=== PATIENT | female | born 1945 | race Caucasian/White ===

== ENCOUNTER 2020-11-02 07:32 | Outpatient (REF) | payer MEDICARE, SELFPAY | END 2020-11-02 07:33 | disposition home or self-care (01) | LOC: HO.HMGCLDS 07:32 | PROVIDERS: PCP Internal Medicine; Visit Provider Internal Medicine | DX: Z20.828 Contact with and (suspected) exposure to other viral communicable diseases (principal) | CPT/HCPCS: C9803; U0003 ==

== ENCOUNTER 2021-07-18 07:39 | Day surgery (SDC) | payer MEDICARE, SELFPAY ==
[2021-07-18 07:53] VITALS: BP 181/63; PULSE 90; RESP 16; TEMP 36.3; O2SAT 98; BMI 23.3
--- NOTE | 2021-07-18 08:11 | P.CONAN_ITS ---
HPI - Anesthesia Eval Consult details Narrative: 76 yo female patient for colonoscopy [facility] Past Medical History Medical History (Updated 07/18/21 @ 07:52 by Celina Oreilly) Cancer Elevated cholesterol Environmental allergies HTN (hypertension) Melanoma Family History Family history of problems with anesthesia: No Surgical History Surgical History (Updated 07/11/21 @ 10:45 by Halima Mccarthy RN) Hx of colonoscopy Hx of hysterectomy History of Problems with Anesthesia: No Social History Social History Patient Tobacco Use Status: Never used Tobacco Use of substances other than those prescribed or required for medical reasons: No Are you DNR?: No Advance Directives: No Advance Directives Information Provided: Yes Meds Allergies Allergy/AdvReac Type Severity Reaction Status Date / Time No Known Allergies Allergy Verified 07/18/21 07:48 Home Medications Medication Instructions Recorded Confirmed Last Taken Type Probiotic 07/11/21 Unknown History atorvastatin 10 mg tablet 10 mg PO DAILY 07/11/21 07/11/21 Unknown History calcium 07/11/21 Unknown History lisinopril 5 mg tablet 5 mg PO DAILY 07/11/21 07/11/21 Unknown History multivitamin 1 tab PO DAILY 07/11/21 07/11/21 Unknown History Exam Exam Date and Time: July 18, 2021 0811 Height,Weight and Vital Signs: Height 5 ft 5 in Weight 63.503 kg Last Vital Signs Temp 97.3 F 07/18/21 07:53 Pulse 90 07/18/21 07:53 Resp 16 07/18/21 07:53 BP 181/63 H 07/18/21 07:53 Pulse Ox 98 07/18/21 07:53 Airway Mallampati Class: II TM Dist: >3cm Neck ROM: Full Loose/Missing/Broken Teeth: No Heart: RRR Lungs: CTAB Assessment and Plan Assessment Anesthesia Assessment: Anesthesia Plan Discussed and Chart Reviewed Final Anesthetic Review Family History of Problems with Anesthesia: No History of Problems with Anesthesia: No NPO: Yes ASA Class: II Final Preanesthetic Review: No Changes in Pt Med Stat, Meds/Allgs Chart Reviewed, Consent Obtained/Reviewed and Anes Risks/Benef Reviewed Patient Risk: Low Procedure Risk: Low Assessment/Block/Sedation in SS: Assess/Block/Sedation-SS Anesthetic Plan Anesthetic Plan: MAC: Disposition: Standard PACU
[2021-07-18] MEDS: Lactated Ringers 1,000 ML 100 ML IVCONT (08:23)
--- NOTE | 2021-07-18 08:39 | MHC.SHP ---
Pre-Procedural Eval Section A Date of Service: 07/18/21 Section B Chief Complaint: screening Details of Present Illness: see h&p no changes Relevant Family History (Specify if Yes): Yes Relevant Social History: None Present Medications: see Short Stay Collaborative assessment Medical History: No relevant PMH History of Previous Operations: No relevant previous surgery Allergies: Allergies Allergy/AdvReac Type Severity Reaction Status Date / Time No Known Allergies Allergy Verified 07/18/21 07:48 Review of Systems Sugical H&P ROS: Negative: Constitution, Cardiovascular, Respiratory, Neurological, Psychiatric, Hem-Onc, Allergic/Immunologic, Gastrointestinal, Genitourinary, Musculoskeletal, Integumentary, Endocrine and Eyes/Ears/Nose/Throat Exam Surgical H&P Exam: Normal: HEENT, Normal: Heart, Normal: Lungs, Normal: Extremities, Normal: Abdomen, Normal: Skin and Normal: Neurological Plan Diagnosis/Plan: Unchanged I have reviewed the history and physical and performed a pertinent physical examination on my patient. No changes have occurred unless specified.
[2021-07-18 09:26] VITALS: BP 97/41; PULSE 68; RESP 16; TEMP 36.2; O2SAT 99
--- NOTE | 2021-07-18 09:28 | P.BOP_ITS ---
Brief Operative Note Date of Service: 07/18/21 Pre-op diagnosis: screening Post-op diagnosis: same (colon polyp) Surgeon: Eren Palma Anesthesia: MAC Was an Machine Set Up Operator used for this Procedure?: No Estimated blood loss (mL): 2 Pathology: other (polyp x 2) Condition: stable Disposition: PACU
--- NOTE | 2021-07-18 09:32 | PC.NURSE ---
dr moura at bedside speaking to patient aware of plan ofcare passing flatus
--- NOTE | 2021-07-18 09:33 | OP_ITS ---
SURGEON: Eren Palma MD INDICATIONS: Colon cancer screening. PREOPERATIVE DIAGNOSIS: POSTOPERATIVE DIAGNOSIS: PROCEDURE PERFORMED: Colonoscopy to the terminal ileum with biopsy and snare polypectomy. ESTIMATED BLOOD LOSS: COMPLICATIONS: ANESTHESIA: ASSISTANTS: SPECIMENS: MEDICATIONS: Monitored anesthesia care. DESCRIPTION OF PROCEDURE: History and physical performed. The risks and benefits of the procedure were explained to the patient. Informed consent was obtained. The patient was placed in the left lateral decubitus position. A digital rectal exam was performed and was found to be normal. The Olympus pediatric video colonoscope was introduced into the rectum and advanced to the cecum without difficulty. The cecum was identified by transillumination, palpation, and identification of ileocecal valve. Examination was performed and the scope was removed. She tolerated the procedure well and was taken to recovery area in stable condition. FINDINGS: The terminal ileum was normal. The visualized colonic mucosa was normal. The quality of prep was good. At 40 cm from the anal verge, was a less than 5 mm sessile polyp, which was removed with biopsy forceps. At 15 cm, was a 6 to 7 mm polyp, which was removed with a snare. The polyp recovery is pending at the time of this dictation. Retroflexed examination was normal. IMPRESSION: Colon polyps. RECOMMENDATION: Follow up the biopsy results. MD ABHISHEK Quan/CRISTI / [phone]
[2021-07-18 09:41] VITALS: BP 144/63; PULSE 69; RESP 18; TEMP 36.2; O2SAT 99
== END 2021-07-18 10:20 | disposition home or self-care (01) ==
PROVIDERS: PCP Internal Medicine; Visit Provider Internal Medicine Gastroenterology
PROC: 0DJD8ZZ Inspection of Lower Intestinal Tract, Via Natural or Artificial Opening Endoscopic (ICD-10-PCS; CPT 45378; principal; 2021-07-18 08:50)
DX: Z12.11 Encounter for screening for malignant neoplasm of colon (principal); D12.5 Benign neoplasm of sigmoid colon; D12.8 Benign neoplasm of rectum; K58.2 Mixed irritable bowel syndrome; I10 Essential (primary) hypertension; E78.00 Pure hypercholesterolemia, unspecified; J30.2 Other seasonal allergic rhinitis; Z85.820 Personal history of malignant melanoma of skin
CPT/HCPCS: 45385; 45380; 88305

== ENCOUNTER 2022-09-04 08:06 | Outpatient (REF) | payer MEDICARE, SELFPAY ==
[2022-09-04 11:20] LABS: MANUAL DIFF FLAG NO
[2022-09-04 12:08] LABS: Basophils Absolute Auto 0.1 X10*3/uL (0.0-0.2); Eosinophils Absolute Auto 0.3 X10*3/uL (0.0-0.4); Eosinophils Percent Auto 6.8 % (0-4); Hematocrit 43.4 % (37.0-47.0); Imm Gran Abs Auto 0.01 X10*3/uL (0.00-0.03); Imm Gran Pct Auto 0.2 % (0.0-0.4); Lymphocytes Absolute Auto 1.1 X10*3/uL (1.2-4.9); Lymphocytes Percent Auto 22.5 % (20-40); Mean Corpuscular HGB Conc 32.3 g/dl (31.0-35.0); Mean Corpuscular Hemoglobin 28.6 pg (27.0-33.0); Mean Corpuscular Volume 88.8 fL (80.0-98.0); Mean Platelet Volume 10.5 fL (9.4-12.3); Monocytes Absolute Auto 0.6 X10*3/uL (0.1-1.2); Monocytes Percent Auto 13.1 % (2-11); Neutrophils Absolute Auto 2.8 x10*3/uL (2.0-8.3); Neutrophils Percent Auto 56.4 % (45-73); Platelet Count 275 X10*3/uL (160-400); Red Blood Count 4.89 X10*6/uL (4.20-5.50); Red Cell Distribution Width 12.1 % (11.0-16.0); White Blood Count 4.9 X10*3/uL (4.8-10.8)
[2022-09-04 12:15] LABS: Thyroid Stimulating Hormone 1.97 uIU/mL (0.32-4.0); Vitamin D 25-OH Total 35.4 ng/mL (>30)
[2022-09-04 12:38] LABS: Alanine Aminotransferase 21 U/L (0-31); Albumin Level 4.3 g/dL (3.5-5.0); Alkaline Phosphatase 94 U/L (39-117); Anion Gap 14 (12-20); Aspartate Amino Transferase 22 U/L (5-31); Bilirubin Total 0.6 mg/dL (0.0-1.0); Blood Urea Nitrogen 14 mg/dL (9-16); Calcium 9.1 mg/dL (8.4-10.2); Carbon Dioxide 26 mmol/L (22-29); Chloride 107 mmol/L (96-108); Cholesterol 215 mg/dL; Estimated Glomerular Filt Rate > 60; Glucose Fasting 90 mg/dL (60-99); HDL Cholesterol 73 mg/dL; LDL Cholesterol Calculated 130 mg/dl; Potassium 4.1 mmol/L (3.3-5.1); Sodium 143 mmol/L (135-145); Total Protein 6.6 g/dL (6.5-8.0); Triglycerides 64 mg/dL
== END 2022-09-04 08:07 | disposition home or self-care (01) ==
LOC: HO.HMGCLDS 08:06
PROVIDERS: PCP Internal Medicine; Visit Provider Internal Medicine
DX: Z00.00 Encounter for general adult medical examination without abnormal findings (principal); I10 Essential (primary) hypertension; E78.00 Pure hypercholesterolemia, unspecified; K21.9 Gastro-esophageal reflux disease without esophagitis; D03.30 Melanoma in situ of unspecified part of face
CPT/HCPCS: 36415; 80053; 80061; 82306; 84443; 85025

== ENCOUNTER 2023-08-28 11:34 | Outpatient (REF) | payer MEDICARE, SELFPAY ==
[2023-08-28 13:09] LABS: MANUAL DIFF FLAG NO
[2023-08-28 13:27] LABS: Basophils Absolute Auto 0.1 X10*3/uL (0.0-0.2); Basophils Percent Auto 0.5 % (0-2); Eosinophils Absolute Auto 0.2 X10*3/uL (0.0-0.4); Eosinophils Percent Auto 1.7 % (0-4); Hematocrit 41.9 % (37.0-47.0); Hemoglobin 13.9 g/dl (12.0-16.0); Imm Gran Abs Auto 0.06 X10*3/uL (0.00-0.03); Imm Gran Pct Auto 0.6 % (0.0-0.4); Lymphocytes Absolute Auto 1.2 X10*3/uL (1.2-4.9); Mean Corpuscular HGB Conc 33.2 g/dl (31.0-35.0); Mean Corpuscular Hemoglobin 29.7 pg (27.0-33.0); Mean Corpuscular Volume 89.5 fL (80.0-98.0); Mean Platelet Volume 10.4 fL (9.4-12.3); Monocytes Absolute Auto 0.9 X10*3/uL (0.1-1.2); Monocytes Percent Auto 9.7 % (2-11); Neutrophils Percent Auto 74.5 % (45-73); Platelet Count 283 X10*3/uL (160-400); Red Blood Count 4.68 X10*6/uL (4.20-5.50); Red Cell Distribution Width 12.3 % (11.0-16.0); White Blood Count 9.5 X10*3/uL (4.8-10.8)
[2023-08-28 13:58] LABS: Alanine Aminotransferase 17 U/L (0-31); Albumin Level 4.1 g/dL (3.5-5.0); Alkaline Phosphatase 107 U/L (39-117); Anion Gap 12 (12-20); Aspartate Amino Transferase 17 U/L (5-31); Bilirubin Direct 0.2 mg/dL (0.0-0.5); Bilirubin Total 0.4 mg/dL (0.0-1.0); Blood Urea Nitrogen 21 mg/dL (9-16); C Reactive Protein < 0.10 mg/dL (< or = 0.50); Calcium 9.5 mg/dL (8.4-10.2); Carbon Dioxide 24 mmol/L (22-29); Chloride 107 mmol/L (96-108); Estimated Glomerular Filt Rate > 60; Glucose Random 104 mg/dL (60-115); Potassium 3.9 mmol/L (3.3-5.1); Sodium 139 mmol/L (135-145); Total Protein 6.8 g/dL (6.5-8.0)
[2023-08-28 14:18] LABS: Thyroid Stimulating Hormone 1.64 uIU/mL (0.32-4.0)
[2023-08-28 14:19] LABS: Erythrocyte Sedimentation Rate 16 MM/HR (0-20)
== END 2023-08-28 11:35 | disposition home or self-care (01) ==
LOC: HO.HMGCLDS 11:34
PROVIDERS: PCP Internal Medicine; Visit Provider Internal Medicine
DX: R53.83 Other fatigue (principal)
CPT/HCPCS: 36415; 80048; 80076; 84443; 85025; 85652; 86140

== ENCOUNTER 2023-09-04 10:37 | Outpatient (AMB) | payer MEDICARE, SELFPAY ==
--- NOTE | 2023-09-04 10:43 | MHC.OFFVIS ---
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 Patient describes her pain as sharp and severe nature. Her pain has gotten worse over the last few years in spite of continued operative treatments. She was seen at [facility] and was told that she would likely need left total knee replacement surgery at some point in the near future. She has had cortisone injections in the past. The most recent injection gave her minimal relief. She has tried Tylenol and anti-inflammatory medicines which gave her only mild relief. She has done physical therapy exercises which aggravated her pain. Allergies Sulfa (Sulfonamide Antibiotics) Allergy (Verified 09/04/23 11:01) Unknown Medication List - Last Reconciled 09/04/23 by Sonu Kumar MD atorvastatin 10 mg PO DAILY [calcium ] lisinopril 5 mg PO DAILY multivitamin 1 tab PO DAILY [Probiotic ] PFSH Medical History (Updated 09/04/23 @ 11:22 by Sonu Kumar MD) Cancer HTN (hypertension) Melanoma Elevated cholesterol Environmental allergies Surgical History (Updated 07/11/21 @ 10:45 by Halima Mccarthy RN) Hx of hysterectomy Hx of colonoscopy Social History Patient Tobacco Use Status: Never used Tobacco Physical Exam Const Other: Well-nourished well-developed very friendly female awake alert and oriented x3 in no acute distress Extrem Other: Bilateral lower extremity examination shows good capillary refill, no skin lesions noted, normal sensation light touch Left knee examination shows minimal effusion, palpable crepitus with range of motion, pain with range of motion, range of motion from full extension to 115 degrees of flexion, no instability Results Reviewed Results Reviewed: X-rays of the patient's left knee taken today show severe joint space narrowing with grade 4 arthritis in the medial compartment, subchondral sclerosis, osteophyte formation, no acute bony abnormalities Assessment & Plan Assessment & Plan (1) Arthritis of left knee: Code(s): M17.12 - Unilateral primary osteoarthritis, left knee Plan Ms. Clark presents with progressively worsening left knee pain due to degenerative joint disease. I had a lengthy discussion with the patient regarding the treatment options. She wishes to hold off on left total knee replacement surgery for now. I agree with this plan. I will see whether not the patient's insurance company will cover a viscosupplementation injection. I will see her back once the injection is available. If she fails continued non operative treatments we will further discuss the risks and benefits of surgical intervention. Feel free to call me at any time should questions regarding her orthopedic management arise. Thank you very much for asking me to see this very friendly patient. I spent 22 minutes in reviewing the patient's records and imaging studies, seeing the patient and documenting in the medical record. Orders: Orders XR knee LT 3V Today M25.562 - Pain in left knee Coding Level of Care Code New Pt Level 2 (82997) Diagnoses Arthritis of left knee M17.12
== END 2023-09-04 11:16 | disposition home or self-care (01) ==
PROVIDERS: PCP Internal Medicine; Visit Provider Orthopaedic Surgery
DX: M17.12 Unilateral primary osteoarthritis, left knee (principal)
CPT/HCPCS: 99202

== ENCOUNTER → 2023-09-04 10:37 | Outpatient (BNVA) | payer MEDICARE, SELFPAY | PROVIDERS: PCP Internal Medicine; Visit Provider Orthopaedic Surgery | DX: M17.12 Unilateral primary osteoarthritis, left knee (principal); M25.562 Pain in left knee | CPT/HCPCS: 99202 ==

== ENCOUNTER 2023-09-06 16:45 | Outpatient (REF) | payer MEDICARE, SELFPAY ==
--- NOTE | ~2023-09-06 | XR_ITS ---
EXAMINATION: XR KNEE, LEFT CLINICAL INFORMATION: Pain COMPARISON: None available. TECHNIQUE: Three views of the left knee. FINDINGS: No acute visible fracture or dislocation. Moderate to severe multicompartment degenerative changes. Moderate to severe narrowing of the medial femorotibial compartments. Severe narrowing of the lateral patellofemoral compartment and moderate to severe narrowing of the medial patellofemoral compartment. Periarticular osteophytes along the superior inferior margins of the patella. A fabella is noted in the posterior compartment. Joint spaces and alignment are otherwise maintained. Small knee joint effusion. Soft tissues are unremarkable. XR/XR knee LT 3V IMPRESSION: 1. No acute visible fracture or dislocation. 2. Moderate to severe multicompartment degenerative changes. 3. Small knee joint effusion.
== END 2023-09-06 16:46 | disposition home or self-care (01) ==
LOC: HO.HOSX 16:45
PROVIDERS: Visit Provider Orthopaedic Surgery
DX: M25.562 Pain in left knee (principal)
CPT/HCPCS: 73562

== ENCOUNTER 2023-09-10 08:24 | Outpatient (AMB) | payer MEDICARE, SELFPAY ==
--- NOTE | 2023-09-10 08:36 | MHC.OFFVIS ---
Intake Intake Visit Reasons: OV - left knee Euflexxa Gel Inj #1 Intake Note: Chelo a 78 year old female presents with complaints of progressively worsening left knee pain. The patient describes her pain as sharp in nature. She has taken Tylenol and ibuprofen which gave her mild relief. She has had cortisone injections in the past which gave her minimal relief. She has done physical therapy exercises which aggravated her pain. She would like to hold off on total knee replacement surgery for as long as possible. Allergies Sulfa (Sulfonamide Antibiotics) Allergy (Verified 09/10/23 08:37) Unknown Medication List - Last Reconciled 09/10/23 by Sonu Kumar MD atorvastatin 10 mg PO DAILY [calcium ] lisinopril 5 mg PO DAILY multivitamin 1 tab PO DAILY [Probiotic ] PFSH Medical History (Updated 09/04/23 @ 11:22 by Sonu Kumar MD) Cancer HTN (hypertension) Melanoma Elevated cholesterol Environmental allergies Surgical History Hx of hysterectomy Hx of colonoscopy Social History Patient Tobacco Use Status: Never used Tobacco Physical Exam Const Other: Well-nourished well-developed very friendly female awake alert and oriented x3 in no acute distress Extrem Other: Bilateral lower extremity examination shows good capillary refill, no skin lesions noted, normal sensation light touch Left knee examination shows a minimal effusion, palpable crepitus with range of motion, pain with range of motion, range of motion from -3 degrees to 115 degrees, no instability Office Procedures Joint Injection/Drain Joint Injection/Drain Primary Site: left knee Prep: site was prepped using aseptic technique Injected: 20 mg of (Euflexxa) and 1% plain lidocaine Procedure: The patient tolerated the procedure well Coding 49580 - Large joint Procedure code (CPT) selection complete Results Reviewed Results Reviewed: 09/10/23 08:33 Hyaluronate Sodium [Euflexxa] 20 mg INTRAARTIC .STK-MED ONE Lidocaine HCl 2 % MPF [Xylocaine 2 % MPF] 5 ml .ROUTE .STK-MED ONE X-rays of the patient's left knee show joint space narrowing, subchondral sclerosis, no acute bony abnormalities Assessment & Plan Assessment & Plan (1) Arthritis of left knee: Code(s): M17.12 - Unilateral primary osteoarthritis, left knee Plan: Ms. Clark presents with left knee pain due to degenerative joint disease. I had a lengthy discussion with the patient regarding the treatment options. She wishes to hold off on total knee replacement surgery for as long as possible. I agree with this plan. The patient has not gotten good relief from cortisone injections in the past. Thus, the risks and benefits of a series of 3 viscosupplementation injections were discussed at length with the patient. The patient wished to proceed with the 1st injection. She tolerated the injection well. She will continue with her home exercise program. She will follow up next week as scheduled. Feel free to call me at any time should questions regarding her orthopedic management arise. I spent 22 minutes in reviewing the patient's records and imaging studies, seeing the patient and documenting in the medical record. Orders: Orders AMB Joint Injection/Aspiration Today M17.12 - Unilateral primary osteoarthritis, left knee Coding Level of Care Code Est Pt Level 2 (55529) Diagnoses Arthritis of left knee M17.12 CPT Codes Coding - 45784 Large joint: 58774 - Large joint ([id number])
== END 2023-09-10 09:06 | disposition home or self-care (01) ==
PROVIDERS: PCP Internal Medicine; Visit Provider Orthopaedic Surgery
DX: M17.12 Unilateral primary osteoarthritis, left knee (principal)
CPT/HCPCS: 20610; 99212

== ENCOUNTER → 2023-09-10 08:24 | Outpatient (BNVA) | payer MEDICARE, SELFPAY | PROVIDERS: PCP Internal Medicine; Visit Provider Orthopaedic Surgery | DX: M17.12 Unilateral primary osteoarthritis, left knee (principal) | CPT/HCPCS: 20610; 99212; J7323 ==

== ENCOUNTER 2023-09-17 08:21 | Outpatient (AMB) | payer MEDICARE, SELFPAY ==
--- NOTE | 2023-09-17 08:26 | A.OFFVIS_ITS ---
Intake Intake Visit Reasons: OV - left knee Euflexxa Gel Inj #2 Intake Note: Ms. Clark presents for follow-up of her left knee pain. She states that she got mild relief from the 1st Euflexxa injection that she was given at her last visit. She denies any fevers or chills. She continues with her activity modifications. Allergies Sulfa (Sulfonamide Antibiotics) Allergy (Verified 09/17/23 08:30) Unknown [facility] Medical History (Updated 09/04/23 @ 11:22 by Sonu Kumar MD) Cancer HTN (hypertension) Melanoma Elevated cholesterol Environmental allergies Surgical History Hx of hysterectomy Hx of colonoscopy Social History Patient Tobacco Use Status: Never used Tobacco Physical Exam Extrem Other: Left knee examination shows a minimal effusion, palpable crepitus with range of motion, pain with range of motion, no instability Office Procedures Joint Injection/Drain Joint Injection/Drain Primary Site: left knee Prep: site was prepped using aseptic technique Injected: 20 mg of (Euflexxa) and 1% plain lidocaine Procedure: The patient tolerated the procedure well Coding 25103 - Large joint Procedure code (CPT) selection complete Results Reviewed Results Reviewed: X-rays of the patient's left knee show joint space narrowing, subchondral sclerosis, no acute bony abnormalities Assessment & Plan Assessment & Plan (1) Arthritis of left knee: Code(s): M17.12 - Unilateral primary osteoarthritis, left knee Plan: Ms. Clark presents for follow-up of her left knee pain. The risks and benefits of a 2nd Euflexxa injection were discussed at length patient. Patient wished to proceed. She tolerated the injection well. She will continue with her activity modifications. She will follow-up for 3rd injection as scheduled. Feel free to call me at any time should questions regarding her orthopedic arise. I spent 22 minutes in reviewing the patient's records and imaging studies, seeing the patient and documenting in the medical record. Orders: Orders AMB Joint Injection/Aspiration Today M17.12 - Unilateral primary osteoarthritis, left knee Coding Level of Care Code Procedure Only Diagnoses Arthritis of left knee M17.12 CPT Codes Coding - 39820 Large joint: 61586 - Large joint ([id number])
== END 2023-09-17 08:56 | disposition home or self-care (01) ==
PROVIDERS: PCP Internal Medicine; Visit Provider Orthopaedic Surgery
DX: M17.12 Unilateral primary osteoarthritis, left knee (principal)
CPT/HCPCS: 20610

== ENCOUNTER → 2023-09-17 08:21 | Outpatient (BNVA) | payer MEDICARE, SELFPAY | PROVIDERS: PCP Internal Medicine; Visit Provider Orthopaedic Surgery | DX: M17.12 Unilateral primary osteoarthritis, left knee (principal) | CPT/HCPCS: 20610; J7323 ==

== ENCOUNTER 2023-09-24 08:25 | Outpatient (AMB) | payer MEDICARE, SELFPAY ==
--- NOTE | 2023-09-24 08:34 | MHC.OFFVIS ---
Intake Intake Visit Reasons: OV - left knee Euflexxa Gel Inj #3 Intake Note: Chelo shipley 78 year old female presents today for a left knee Euflexxa injection #3. She reports mild discomfort in her left knee. She denies any fevers or chills. She also reports intermittent discomfort in her right knee. At this point her right knee discomfort is tolerable to Allergies Sulfa (Sulfonamide Antibiotics) Allergy (Verified 09/24/23 08:43) Unknown [facility] Medical History (Updated 09/04/23 @ 11:22 by Sonu Kumar MD) Cancer HTN (hypertension) Melanoma Elevated cholesterol Environmental allergies Surgical History Hx of hysterectomy Hx of colonoscopy Social History Patient Tobacco Use Status: Never used Tobacco Physical Exam Extrem Other: Left knee examination shows a minimal effusion, palpable crepitus with range of motion, mild pain with range of motion, no instability Office Procedures Joint Injection/Drain Joint Injection/Drain Primary Site: left knee Prep: site was prepped using aseptic technique Injected: 20 mg of (Eudlexxa) and 1% plain lidocaine Procedure: The patient tolerated the procedure well Coding - Large joint Procedure code (CPT) selection complete Assessment & Plan Assessment & Plan (1) Arthritis of left knee: Code(s): M17.12 - Unilateral primary osteoarthritis, left knee Plan: Ms. Clark the the presents with left knee pain due to degenerative joint disease. I had a lengthy discussion with the patient regarding the treatment options. The risks and benefits of a 3rd Euflexxa injection were discussed at length with the patient. The patient wished to proceed. She tolerated the injection well. She will continue with her home exercise program. She will follow up with me on an as-needed basis should her symptoms not plateau at an unacceptable level over the next few months. If she fails continued non operative treatments we will further discuss the risks and benefits of left total knee replacement surgery. Feel free to call me at any time should questions regarding her orthopedic management arise. Orders: Orders AMB Joint Injection/Aspiration Today M17.12 - Unilateral primary osteoarthritis, left knee Coding Level of Care Code Procedure Only Diagnoses Arthritis of left knee M17.12 CPT Codes Coding - 24102 Large joint: 41646 - Large joint ([id number])
== END 2023-09-24 08:56 | disposition home or self-care (01) ==
PROVIDERS: PCP Internal Medicine; Visit Provider Orthopaedic Surgery
DX: M17.12 Unilateral primary osteoarthritis, left knee (principal)
CPT/HCPCS: 20610

== ENCOUNTER → 2023-09-24 08:25 | Outpatient (BNVA) | payer MEDICARE, SELFPAY | PROVIDERS: PCP Internal Medicine; Visit Provider Orthopaedic Surgery | DX: M17.12 Unilateral primary osteoarthritis, left knee (principal) | CPT/HCPCS: 20610; J7323 ==

== ENCOUNTER 2023-10-24 14:32 | Outpatient (AMB) | payer MEDICARE, SELFPAY ==
--- NOTE | 2023-10-24 14:33 | A.OFFVIS_ITS ---
Intake Intake Visit Reasons: OV- Lt knee pain, following inj Intake Note: Chelo is a 78 year old female who presents today for evaluation for her left knee pain. Patient describes her pain as sharp and severe nature. Her pain has gotten worse over the last few years in spite of continued operative treatments. She was seen at [facility] and was told that she would likely need left total knee replacement surgery at some point in the near future. She has had cortisone injections in the past. The most recent injection gave her minimal relief. She also had a series of viscosupplementation injections 2 months ago which gave her minimal relief. She has tried Tylenol and anti-inflammatory medicines which gave her only mild relief. She has done physical therapy exercises which aggravated her pain. The patient has difficulty walking even short distances because of her pain. At this point her left knee pain is interfering with her activities of daily living and her ability to sleep well through the night. Allergies Sulfa (Sulfonamide Antibiotics) Allergy (Verified 10/24/23 14:39) Unknown Medication List - Last Reconciled 10/24/23 by Sonu Kumar MD atorvastatin 10 mg PO DAILY [calcium ] lisinopril 5 mg PO DAILY methylprednisolone (Medrol (Murphy)) PO PER PKG DIR multivitamin 1 tab PO DAILY [Probiotic ] PFSH Medical History (Updated 09/04/23 @ 11:22 by Sonu Kumar MD) Cancer HTN (hypertension) Melanoma Elevated cholesterol Environmental allergies Surgical History Hx of hysterectomy Hx of colonoscopy Social History Patient Tobacco Use Status: Never used Tobacco Physical Exam Const Other: Well-nourished well-developed very friendly female awake alert and oriented x3 in no acute distress Extrem Other: Bilateral lower extremity examination shows good capillary refill, no skin lesions noted, normal sensation light touch Left knee examination shows a minimal effusion, palpable crepitus with range of motion, pain with range of motion, range of motion from -3 degrees to 115 degrees, no instability Results Reviewed Results Reviewed: X-rays of the patient's left knee show severe joint space narrowing with grade 4 [id number] arthritis, subchondral sclerosis, no acute bony abnormalities Assessment & Plan Assessment & Plan (1) Arthritis of left knee: Code(s): M17.12 - Unilateral primary osteoarthritis, left knee Plan Ms. Clark presents with progressively worsening left knee pain due to end-stage degenerative joint disease. I had a lengthy discussion with the patient regarding the treatment options. At this point she has failed continued non operative treatments. The risks and benefits of left total knee replacement surgery were discussed at length with the patient. The patient is interested in proceeding with surgery next February. I will have my office contact the patient to schedule a surgery date. I will see her back 1 week prior to her surgery to answer any final questions that she might have. I did give her a prescription for a Medrol Dosepak to help in the meantime. We will hold off on any other cortisone injection because she is not sure when her most recent cortisone injection was. Feel free to call me at any time should questions regarding her orthopedic management arise. I spent 20 minutes in reviewing the patient's records and imaging studies, seeing the patient and documenting in the medical record. Medications: New methylprednisolone (Medrol (Murphy)) PO PER PKG DIR 21 ea 0RF Coding Level of Care Code Est Pt Level 2 (13267) Diagnoses Arthritis of left knee M17.12
== END 2023-10-24 15:10 | disposition home or self-care (01) ==
PROVIDERS: PCP Internal Medicine; Visit Provider Orthopaedic Surgery
DX: M17.12 Unilateral primary osteoarthritis, left knee (principal)
CPT/HCPCS: 99212

== ENCOUNTER → 2023-10-24 14:32 | Outpatient (BNVA) | payer MEDICARE, SELFPAY | PROVIDERS: PCP Internal Medicine; Visit Provider Orthopaedic Surgery | DX: M17.12 Unilateral primary osteoarthritis, left knee (principal) | CPT/HCPCS: 99212; J1020 ==

== ENCOUNTER 2023-12-03 07:39 | Outpatient (AMB) | payer MEDICARE, SELFPAY ==
--- NOTE | 2023-12-03 07:43 | MHC.OFFVIS ---
Intake Vital Signs 12/03/23 07:47 Height 5 ft 5 in Weight 142 lb BMI 23.6 Intake Visit Reasons: OV-Bilateral Knee Pain - Wants Injection Intake Note: Chelo is a 78 year old female who presents today with complaints of bilateral knee pain. She finished her left knee Euflexxa series on 09/24/23. She would like to have both of her knees injected today. She has been using topical Voltaren gel which gives her mild relief. She denies any fevers or chills. She is scheduled to undergo left total knee replacement surgery later this year. Allergies Sulfa (Sulfonamide Antibiotics) Allergy (Verified 12/03/23 07:48) Unknown Medication List - Last Reconciled 12/03/23 by Sonu Kumar MD atorvastatin 10 mg PO DAILY [calcium ] diclofenac sodium ER 100 mg PO DAILY PRN lisinopril 5 mg PO DAILY multivitamin 1 tab PO DAILY [Probiotic ] PFSH Medical History Cancer HTN (hypertension) Melanoma Elevated cholesterol Environmental allergies Surgical History Hx of hysterectomy Hx of colonoscopy Social History Patient Tobacco Use Status: Never used Tobacco Physical Exam Vital Signs: BMI result Body Mass Index 23.6 Const Other: Well-nourished well-developed very friendly female awake alert and oriented x3 in no acute distress Extrem Other: Bilateral lower extremity examination shows good capillary refill, no skin lesions noted, normal sensation light touch Bilateral knee examination shows minimal effusions, palpable crepitus with range of motion, pain with range of motion, range of motion from -3 degrees to 115 degrees, no instability Office Procedures Joint Injection/Drain Joint Injection/Drain Primary Site: left knee Prep: site was prepped using aseptic technique Injected: 40 mg of, DepoMedrol and 1% plain lidocaine Procedure: The patient tolerated the procedure well Coding 67385 - Large joint Procedure code (CPT) selection complete Joint Injection/Drain Joint Injection/Drain Primary Site: right knee Prep: site was prepped using aseptic technique Injected: 40 mg of, DepoMedrol and 1% plain lidocaine Coding 16872 - Large joint Procedure code (CPT) selection complete Results Reviewed Results Reviewed: X-rays of the patient's bilateral knee show joint space narrowing, subchondral sclerosis, no acute bony abnormalities Assessment & Plan Assessment & Plan (1) Arthritis of left knee: Code(s): M17.12 - Unilateral primary osteoarthritis, left knee (2) Arthritis of right knee: Code(s): M17.11 - Unilateral primary osteoarthritis, right knee Plan Ms. Clark presents with bilateral knee pains due to degenerative joint disease. The risks and benefits of bilateral knee cortisone injections were discussed at length with the patient. The patient wished to proceed. She tolerated the injections well. I also gave her a prescription for diclofenac. She will continue with her home exercise program. She will follow-up as scheduled. Feel free to call me at any time should questions regarding her orthopedic management arise. I spent 22 minutes in reviewing the patient's records and imaging studies, seeing the patient and documenting in the medical record. Orders: Orders AMB Joint Injection/Aspiration Today M17.12 - Unilateral primary osteoarthritis, left knee AMB Joint Injection/Aspiration Today M17.11 - Unilateral primary osteoarthritis, right knee Medications: New diclofenac sodium ER 100 mg PO DAILY PRN 30 tabs 2RF pain Coding Level of Care Code Est Pt Level 2 (77896) Diagnoses Arthritis of left knee M17.12 Arthritis of right knee M17.11 CPT Codes Coding - 67110 Large joint: 58671 - Large joint ([id number]) Coding - 70483 Large joint: 08967 - Large joint ([id number])
[2023-12-03 07:47] VITALS: BMI 23.6
== END 2023-12-03 08:09 | disposition home or self-care (01) ==
PROVIDERS: PCP Internal Medicine; Visit Provider Orthopaedic Surgery
DX: M17.0 Bilateral primary osteoarthritis of knee (principal)
CPT/HCPCS: 20610; 99213

== ENCOUNTER → 2023-12-03 07:39 | Outpatient (BNVA) | payer MEDICARE, SELFPAY | PROVIDERS: PCP Internal Medicine; Visit Provider Orthopaedic Surgery | DX: M17.0 Bilateral primary osteoarthritis of knee (principal) | CPT/HCPCS: 20610; 99212; J1020 ==

== ENCOUNTER 2023-12-25 08:21 | Outpatient (AMB) | payer MEDICARE, SELFPAY ==
--- NOTE | 2023-12-25 08:23 | MHC.OFFVIS ---
Intake Vital Signs 12/25/23 08:25 Height 5 ft 5 in Weight 142 lb BMI 23.6 Intake Visit Reasons: OV-Left knee -follow up Intake Note: Chelo is a 78 year old female who presents for a follow up of Left knee OA, last injection 12/03/22. 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 Her pain has gotten worse over the last few years in spite of continued non operative treatments. She has had both viscosupplementation and cortisone injections which gave her minimal relief. She has taken Tylenol and diclofenac which gave her no relief. The patient has difficulty walking even short distances because of her pain. At this point her left knee pain is interfering with her activities of daily living and her ability to sleep well through the night. Allergies Sulfa (Sulfonamide Antibiotics) Allergy (Verified 12/25/23 08:25) Unknown Medication List - Last Reconciled 12/25/23 by Sonu Kumar MD atorvastatin 10 mg PO DAILY [calcium ] diclofenac sodium ER 100 mg PO DAILY PRN hydrocodone-acetaminophen 5-325 mg 1 tab PO Q8H PRN lisinopril 5 mg PO DAILY multivitamin 1 tab PO DAILY [Probiotic ] PFSH Medical History Cancer HTN (hypertension) Melanoma Elevated cholesterol Environmental allergies Surgical History Hx of hysterectomy Hx of colonoscopy Social History Patient Tobacco Use Status: Never used Tobacco Physical Exam Vital Signs: BMI result Body Mass Index 23.6 Const Other: Well-nourished well-developed very friendly female awake alert and oriented x3 in no acute distress Extrem Other: Bilateral lower extremity examination shows good capillary refill, no skin lesions noted, normal sensation light touch Left knee examination shows a minimal effusion, palpable crepitus with range of motion, pain with range of motion, range of motion from full extension to 120 degrees of flexion, no instability Results Reviewed Results Reviewed: X-rays of the patient's left knee show end-stage degenerative joint disease with grade 4 [id number] arthritis, subchondral sclerosis, osteophyte formation, no acute bony abnormalities Assessment & Plan Assessment & Plan (1) Arthritis of left knee: Code(s): M17.12 - Unilateral primary osteoarthritis, left knee Plan Ms. Clark presents with progressively worsening left knee pain due to end-stage degenerative joint disease. I had a lengthy discussion with the patient regarding the treatment options. At this point she has failed continued non operative treatments. The risks and benefits of left total knee replacement surgery were discussed at length with the patient. The patient wishes to proceed with surgery. She will be scheduled for our next available date. I will see her back 1 week prior to her surgery to answer any final have. Feel free to call me at any time should questions regarding her orthopedic management arise. I spent 20 minutes in reviewing the patient's records and imaging studies, seeing the patient and documenting in the medical record. Medications: New hydrocodone-acetaminophen 5-325 mg Partial Fill upon patient request. 1 tab PO Q8H PRN 30 tabs 0RF pain Coding Level of Care Code Est Pt Level 2 (67715) Diagnoses Arthritis of left knee M17.12
[2023-12-25 08:25] VITALS: BMI 23.6
== END 2023-12-25 08:43 | disposition home or self-care (01) ==
PROVIDERS: PCP Internal Medicine; Visit Provider Orthopaedic Surgery
DX: M17.12 Unilateral primary osteoarthritis, left knee (principal)
CPT/HCPCS: 99213

== ENCOUNTER → 2023-12-25 08:21 | Outpatient (BNVA) | payer MEDICARE, SELFPAY | PROVIDERS: PCP Internal Medicine; Visit Provider Orthopaedic Surgery | DX: M17.12 Unilateral primary osteoarthritis, left knee (principal) | CPT/HCPCS: 99212 ==

== ENCOUNTER → 2024-02-13 09:43 | Outpatient (BNVA) | payer MEDICARE, SELFPAY | PROVIDERS: PCP Internal Medicine; Visit Provider Orthopaedic Surgery ==

== ENCOUNTER → 2024-02-13 09:43 | Outpatient (BNVA) | payer MEDICARE, SELFPAY | PROVIDERS: PCP Internal Medicine; Visit Provider Orthopaedic Surgery ==

== ENCOUNTER → 2024-03-06 08:30 | Outpatient (REF) | payer MEDICARE, SELFPAY ==
--- NOTE | 2024-03-06 08:37 | ECG_ITS ---
Test Reason : PREOP Blood Pressure : / mmHG Vent. Rate : 089 BPM Atrial Rate : 089 BPM P-R Int : 144 ms QRS Dur : 000 ms QT Int : 404 ms P-R-T Axes : 055 056 018 degrees QTc Int : 491 ms Normal sinus rhythm Right bundle branch block Nonspecific ST and T wave abnormality Prolonged QT Abnormal ECG When compared with ECG of 16-DEC-2007 09:48, No significant change was found Referred By: Igor Adkins Electronically Signed By:Hunter Stanford
[2024-03-06 08:52] LABS: MANUAL DIFF FLAG NO
[2024-03-06 09:25] LABS: Basophils Absolute Auto 0.1 X10*3/uL (0.0-0.2); Eosinophils Absolute Auto 0.3 X10*3/uL (0.0-0.4); Eosinophils Percent Auto 4.9 % (0-4); Hemoglobin 13.6 g/dl (12.0-16.0); Imm Gran Abs Auto 0.03 X10*3/uL (0.00-0.03); Imm Gran Pct Auto 0.6 % (0.0-0.4); Lymphocytes Percent Auto 20.1 % (20-40); Mean Corpuscular HGB Conc 33.2 g/dl (31.0-35.0); Mean Corpuscular Volume 90.3 fL (80.0-98.0); Mean Platelet Volume 10.1 fL (9.4-12.3); Monocytes Absolute Auto 0.6 X10*3/uL (0.1-1.2); Monocytes Percent Auto 10.9 % (2-11); Neutrophils Absolute Auto 3.2 x10*3/uL (2.0-8.3); Neutrophils Percent Auto 62.5 % (45-73); Platelet Count 296 X10*3/uL (160-400); Red Blood Count 4.54 X10*6/uL (4.20-5.50); Red Cell Distribution Width 12.2 % (11.0-16.0); White Blood Count 5.1 X10*3/uL (4.8-10.8)
[2024-03-06 09:36] LABS: Estimated Average Glucose 114 mg/dL; Hemoglobin A1c % 5.6 % (<6.0)
[2024-03-06 09:45] LABS: Alanine Aminotransferase 16 U/L (0-31); Alkaline Phosphatase 106 U/L (39-117); Anion Gap 10 (12-20); Aspartate Amino Transferase 17 U/L (5-31); Bilirubin Total 0.5 mg/dL (0.0-1.0); Blood Urea Nitrogen 19 mg/dL (9-16); Calcium 9.4 mg/dL (8.4-10.2); Carbon Dioxide 27 mmol/L (22-29); Chloride 110 mmol/L (96-108); Estimated Glomerular Filt Rate > 60; Glucose Random 82 mg/dL (60-115); Potassium 3.7 mmol/L (3.3-5.1); Sodium 143 mmol/L (135-145); Total Protein 6.9 g/dL (6.5-8.0)
[2024-03-06 10:57] LABS: Appearance Urine Clear; Color Urine Yellow; Glucose Urine UA Negative (Negative); Leukocyte Esterase Urine Small (1+) (Negative); Nitrite Urine Negative (Negative); PH 5.5 (5.0-9.0); UMIC TRIGGER UA YES; Urine Blood Negative (Negative); Urine Ketones Negative (Negative); Urine Protein Negative (Neg-Trace)
[2024-03-06 11:05] LABS: Bacteria Urine 2+ (None Seen); Hyaline Casts Urine 0-2 /LPF (0-2); RBC Urine 0-2 /HPF (0-2)
== END ==
LOC: HO.CARD 08:30
PROVIDERS: PCP Internal Medicine; Visit Provider Internal Medicine
DX: M17.12 Unilateral primary osteoarthritis, left knee (principal)
CPT/HCPCS: 36415; 80053; 81001; 83036; 85025; 87086; 93005

== ENCOUNTER → 2024-03-06 08:37 | Outpatient (BNV) | payer MEDICARE, SELFPAY | PROVIDERS: PCP Internal Medicine; Visit Provider Internal Medicine Cardiovascular Disease | DX: Z01.818 Encounter for other preprocedural examination (principal) | CPT/HCPCS: 93010 ==

== ENCOUNTER 2024-03-09 09:09 | Outpatient (REF) | payer MEDICARE, SELFPAY ==
[2024-03-09 11:03] LABS: Appearance Urine Clear; Color Urine Yellow; Glucose Urine UA Negative (Negative); Leukocyte Esterase Urine Negative (Negative); Nitrite Urine Negative (Negative); Specific Gravity - Urine 1.025 (1.005-1.025); Urine Blood Negative (Negative); Urine Ketones Negative (Negative); Urine Protein Negative (Neg-Trace)
[2024-03-09 11:12] LABS: Bacteria Urine None Seen (None Seen); Hyaline Casts Urine 0-2 /LPF (0-2); RBC Urine 0-2 /HPF (0-2); WBC Urine 0-5 /HPF (0-5)
== END 2024-03-09 09:10 | disposition home or self-care (01) ==
LOC: HO.HMGCLDS 09:09
PROVIDERS: PCP Internal Medicine; Visit Provider Internal Medicine
DX: M17.12 Unilateral primary osteoarthritis, left knee (principal); R82.90 Unspecified abnormal findings in urine
CPT/HCPCS: 81001; 87086

== ENCOUNTER 2024-03-11 10:00 | Outpatient (AMB) | payer MEDICARE, SELFPAY ==
[2024-03-11 10:04] VITALS: BMI 23.6
--- NOTE | 2024-03-11 10:04 | A.OFFVIS_ITS ---
Intake Vital Signs 03/11/24 10:04 Height 5 ft 5 in Weight 142 lb BMI 23.6 Intake Visit Reasons: Preop- LT TKA 03/16/24 Intake Note: Chelo is a 78 year old female who presents with complaints of progressively worsening left knee pain. She describes her pain as sharp and severe in nature. Her pain has gotten worse over the last few years in spite of continued non operative treatments. The patient has difficulty walking even short distances because of her pain. She has tried Tylenol and anti-inflammatory medicines which gave her minimal relief. She has also done physical therapy which aggravated her pain. She has had injections in the past which gave her minimal relief. The patient states that her left knee pain is now interfering with her activities of daily living and her ability to sleep well through the night. Allergies Sulfa (Sulfonamide Antibiotics) Allergy (Intermediate, Verified 03/11/24 10:30) Rash Medication List - Last Reviewed 03/11/24 by Daisy Tony CMA aspirin (Adult Aspirin Regimen) 81 mg PO QAM atorvastatin 20 mg PO QAM hydrocodone-acetaminophen 5-325 mg 1 tab PO Q8H PRN levofloxacin 250 mg PO DAILY lisinopril 10 mg PO QAM lorazepam 0.5 mg PO DAILY PRN multivitamin 1 tab PO QAM omeprazole 20 mg PO QAM walker Folding front wheeled walker PFSH Medical History White coat syndrome with diagnosis of hypertension Sciatic leg pain Arthritis Anxiety GERD (gastroesophageal reflux disease) Cancer HTN (hypertension) Melanoma Elevated cholesterol Environmental allergies Surgical History Hx of meniscectomy of right knee Hx of hysterectomy Hx of colonoscopy Social History Are you a primary wound care technician to a significant other at home: No Do you presently have visiting nurse or other home services: No Patient Tobacco Use Status: Never used Tobacco Use of substances other than those prescribed or required for medical reasons: No Have you been hit, kicked, punched, or otherwise hurt by someone within the past year? If so, by whom?: No Are you DNR?: No Advance Directives Information Provided: Yes (as above noted) Advance Directives on File: No Recently lost weight without trying: No Eating poorly because of decreased appetite: No Nutrition Risks: Surgical patient >75years Poor oral hygiene: No (caps, crowns, implants) Physical Exam Vital Signs: BMI result Body Mass Index 23.6 Const Other: Well-nourished well-developed very friendly female awake alert and oriented x3 in no acute distress Extrem Other: Bilateral lower extremity examination shows good capillary refill, no skin lesions noted, normal sensation light touch Left knee examination shows a minimal effusion, palpable crepitus with range of motion, pain with range of motion, range of motion from -3 degrees to 115 degrees, no instability Results Reviewed Results Reviewed: X-rays of the patient's left knee show severe joint space narrowing with grade 4 [id number] arthritis, subchondral sclerosis, osteophyte formation, no acute bony abnormalities Assessment & Plan Assessment & Plan (1) Osteoarthritis of left knee: Code(s): M17.12 - Unilateral primary osteoarthritis, left knee Plan Ms. Clark presents with progressively worsening left knee pain due to end-stage degenerative joint disease. I had a lengthy discussion with the patient regarding the treatment options. At this point she has failed continued non operative treatments. The risks and benefits of left total knee replacement surgery were discussed at length with the patient. The patient wishes to proceed with surgery. online services manager will be consulted following her surgery for home physical therapy and nursing. The patient will follow-up as instructed. Feel free to call me at any time should questions regarding her orthopedic management arise. I spent 22 minutes in reviewing the patient's records and imaging studies, seeing the patient and documenting in the medical record. Medications: New levofloxacin 250 mg PO DAILY 5 tabs 0RF Coding Level of Care Code Est Pt Level 2 (34495) Diagnoses Osteoarthritis of left knee M17.12
== END 2024-03-11 11:01 | disposition home or self-care (01) ==
PROVIDERS: PCP Internal Medicine; Visit Provider Orthopaedic Surgery
DX: M17.12 Unilateral primary osteoarthritis, left knee (principal)
CPT/HCPCS: 99213

== ENCOUNTER → 2024-03-11 10:00 | Outpatient (BNVA) | payer MEDICARE, SELFPAY | PROVIDERS: PCP Internal Medicine; Visit Provider Orthopaedic Surgery | DX: M17.12 Unilateral primary osteoarthritis, left knee (principal) | CPT/HCPCS: 99212 ==

== ENCOUNTER 2024-03-16 06:33 | Inpatient (IN) | payer MEDICARE, SELFPAY ==
[2024-03-10 12:04] VITALS: BP 185/77; PULSE 80; RESP 20; O2SAT 100; BMI 23.5
[2024-03-10 14:00] LABS: MRSA Nasal PCR NEGATIVE (Negative); SA Nasal PCR NEGATIVE (Negative)
[2024-03-16] VITALS (12 sets, daily range): BP systolic 118–184; BP diastolic 47–76; PULSE 60–88; RESP 12–19; TEMP 36.1–36.6; O2SAT 96–100; BMI 23.5
--- OUTSIDE RECORDS SUMMARY | 2024-03-16 06:38 | XMS_ITS | Continuity of Care Document ---
Author Organization [facility] ter Address [address] [place] [address]- Care Team Providers Care Call Center Manager Name Role Phone Igor Adkins DO Primary Care Physician Encounter [facility] Date(s): 01/18/22 - 02/25/[address] [address] Attending Physician: Thaddeus Box MD Admitting Physician: Thaddeus Box MD Referring Physician: Thaddeus Box MD Allergies, Adverse Reactions, Alerts No Known Allergies
--- OUTSIDE RECORDS SUMMARY | 2024-03-16 06:38 | XMS_ITS | Continuity of Care Document ---
Author Organization [facility] ter Address [address] [place] [address]- Care Team Providers Care Special Technical Operations Officer Name Role Phone Igor Adkins DO Primary Care Physician Encounter [facility] Date(s): 01/18/22 - 03/02/[address] [address] Attending Physician: Thaddeus Box MD Referring Physician: Thaddeus Box MD Allergies, Adverse Reactions, Alerts No Known Allergies
--- OUTSIDE RECORDS SUMMARY | 2024-03-16 06:38 | XMS_ITS | Continuity of Care Document ---
Author Organization [facility] Address [address] [place] [address]- Care Team Providers Care Roller Billet Mill Name Role Phone Igor Adkins DO Primary Care Physician Encounter [facility] Date(s): 01/24/22 - 02/23/22 [id number] [address]- Attending Physician: Admjuno Ar8 Admitting Physician: Admtr, Ar8 Referring Physician: Admtr, Ar8 Allergies, Adverse Reactions, Alerts No Known Allergies
--- OUTSIDE RECORDS SUMMARY | 2024-03-16 06:38 | XMS_ITS | Continuity of Care Document ---
Author Organization [facility] Address [address] [place] [address]- Care Team Providers Care Cmo Name Role Phone Igor Adkins DO Primary Care Physician Encounter [facility] Date(s): 01/18/22 - 02/25/22 [facility] [address] [place] [address] Attending Physician: Kleber Samson MD Admitting Physician: Kleber Samson MD Referring Physician: Charu GORDILLO, Thaddeus Reyes Allergies, Adverse Reactions, Alerts No Known Allergies
--- OUTSIDE RECORDS SUMMARY | 2024-03-16 06:38 | XMS_ITS | Continuity of Care Document ---
Author Organization [facility] ter Address [address] [place] [address]- Care Team Providers Care Upholstery Restorer Name Role Phone Igor Adkins DO Primary Care Physician [phone] Encounter [facility] Date(s): 08/11/21 - 10/05/[address] [address] Attending Physician: Thaddeus Box MD Admitting Physician: Thaddeus Box MD Allergies, Adverse Reactions, Alerts Substance Reaction Severity Status NKA Active
--- OUTSIDE RECORDS SUMMARY | 2024-03-16 06:38 | XMS_ITS | Continuity of Care Document ---
Author Organization [facility] Address [address] [place] [address]- Care Team Providers Care Transcribing Machine Mechanic Name Role Phone Igor Adkins DO Primary Care Physician [phone] Encounter [facility] Date(s): 09/12/21 - 10/12/[address] [address] Attending Physician: Admtr, Ar8 Admitting Physician: Admtr, Ar8 Referring Physician: Admtr, Ar8 Allergies, Adverse Reactions, Alerts Substance Reaction Severity Status NKA Active
--- OUTSIDE RECORDS SUMMARY | 2024-03-16 06:38 | XMS_ITS | Continuity of Care Document ---
Author Organization [facility] Address [address] [place] [address]- Care Team Providers Care Head Swamper Name Role Phone Igor Adkins DO Primary Care Physician Encounter [facility] Date(s): 01/26/22 - 02/25/22 [facility] [address] [place], [place] [address] Attending Physician: Irlanda Montyoa Admitting Physician: Admtr, Ar8 Referring Physician: Admtr, Ar8 Allergies, Adverse Reactions, Alerts No Known Allergies
--- OUTSIDE RECORDS SUMMARY | 2024-03-16 06:38 | XMS_ITS | Continuity of Care Document ---
Author Organization [facility] Address [address] [facility] [place] [address]- Care Team Providers Care Electrician Marine Name Role Phone Jed Igor JAVED Primary Care Physician Encounter 08/09/23 - 08/16/23 [facility] [address] [facility] [place] [address]- Attending Physician: Art Luna MD Admitting Physician: Art Luna MD Referring Physician: Art Luna MD Allergies, Adverse Reactions, Alerts No Known Allergies Results Radiology Reports * Exam Date Time Procedure Performing Provider Status 08/09/23 11:[address] Heart W/O Dye Mario Alberto Eval Sudeep , E grant; Auth (Verified) Notes: (CT Heart W/O Dye Mario Alberto Eval) Reason For Exam: E78.5 HYPERLIPIDEMIA RESULT: CT Heart W/O Dye Mario Alberto Eval CT Heart W/O Dye Mario Alberto Eval INDICATION: Hyperlipidemia. Past medical history significant for hypertension and sporadic chest pain. Family history of premature coronary artery disease with myocardial infarction and father at age54.. Nuclear MPI performed recently was normal. Female of age 78 years, race White COMPARISON: None TECHNIQUE: Coronary artery Calcium Scoring. After a localizing manufacturing team member image was obtained, an ECG-gated noncontrast exam was obtained of the heart in late diastole. The region of interest was limited to the heart in order to optimize image quality. Weight-based protocol using automatic tube modulation was used to optimize exposure parameters. A ERCOM 64 scanner was used, with Agatston scoring performed using [employer] web-based software. CTDIvol Body: 5.48 mGy, DLP Body: 77 mGy*cm. FINDINGS: Coronary Calcium Scoring Summary: Left Main: score 0. LAD: score 414. Circumflex: score 35. Right: score 0. TOTAL: score 449. Non-coronary Findings: Small hiatal hernia. No suspicious lung finding. No lymphadenopathy. No acute bony findings. In the left medial inferior breast there is a 2 cm soft tissue nodule image 26 series 2, indeterminate. IMPRESSION: The Agatston coronary calcium score is 449. The Multi-Ethnic Study of Atherosclerosis (ENGEL) trial on-line calculator can be used to determine the probability of having coronary calcification and the calcium score percentile for subjects basedon age, gender and race/ethnicity who are free of clinical cardiovascular disease and treated diabetes: http://www.engel-nhlbi.org/Calcium/input.aspx Within this cohort, the probability of having coronary calcification is 76 %. The observed calcium score is at the 83rd percentile. A 2 cm soft tissue nodule in the left medial inferior breast is indeterminate. May consider correlation with mammography and ultrasound as clinically warranted. I have personally reviewed the images and I agree with this report. WSN: [id number] Ordering Physician: Art Luna Dictated By: Jamia Lind MD Dictated Date/Time: 08/09/23 3:17 pm Reviewed By: Stacia Mccurdy MD Signed By: Stacia Mccurdy MD Signed Date/Time: 08/09/23 3:22 pm Transcribed By: RACHEL Transcribed Date/Time: 08/09/23 2:29 pm Patient Care team information Care Team Personnel Name: Igor Adkins DO Position: Reference Physician Member Role: PCP Address: Address: [address] [place] [address] [place] [address]- Care Team Related Persons Name: KRISTAL MIRELES Address: home [address] [place] [address]
--- OUTSIDE RECORDS SUMMARY | 2024-03-16 06:38 | XMS_ITS | Continuity of Care Document ---
Author Organization [facility] ter Address [address] [place] [address]- Care Team Providers Care Hand Ornament Maker Name Role Phone Igor Adkins DO Primary Care Physician Encounter [facility] Date(s): 01/26/22 - 02/25/[address] [address] Attending Physician: Admtr, Ar8 Admitting Physician: Admtr, Ar8 Referring Physician: Admtr, Ar8 Allergies, Adverse Reactions, Alerts No Known Allergies
--- OUTSIDE RECORDS SUMMARY | 2024-03-16 06:38 | XMS_ITS | Continuity of Care Document ---
Author Organization [facility] Address [address] [place], [place] [address]- Care Team Providers Care Licensed Mortgage Loan Officer Name Role Phone Igor Adkins DO Primary Care Physician [phone] Encounter [facility] Date(s): 08/12/21 - 09/22/21 [id number], [place] [address]- Attending Physician: Thaddeus Bxo MD Admitting Physician: Thaddeus Box MD Referring Physician: Thaddeus Box MD Allergies, Adverse Reactions, Alerts Substance Reaction Severity Status NKA Active
--- OUTSIDE RECORDS SUMMARY | 2024-03-16 06:38 | XMS_ITS | Continuity of Care Document ---
Author Organization [facility] Address [address] [place], [place] [address]- Care Team Providers Care Cattle Sorter Name Role Phone Igor Adkins DO Primary Care Physician [phone] Encounter [facility] Date(s): 01/18/22 - 02/23/[address] [address]- Attending Physician: Thaddeus Box MD Admitting Physician: Thaddeus Box MD Referring Physician: Thaddeus Box MD Allergies, Adverse Reactions, Alerts No Known Allergies
--- OUTSIDE RECORDS SUMMARY | 2024-03-16 06:38 | XMS_ITS | Continuity of Care Document ---
Author Organization [facility] Address [address] [place] [address]- Care Team Providers Care Metal Pattern Maker Name Role Phone Igor Adkins DO Primary Care Physician Encounter [facility] Date(s): 08/23/21 - 09/22/21 [id number], [place] [address]- Attending Physician: Admtr, Ar8 Admitting Physician: Admtr, Ar8 Referring Physician: Admtr, Ar8 Allergies, Adverse Reactions, Alerts Substance Reaction Severity Status NKA Active
--- OUTSIDE RECORDS SUMMARY | 2024-03-16 06:38 | XMS_ITS | Continuity of Care Document ---
Author Organization [facility] ter Address [address] [place] [address]- Care Team Providers Care Phthalic Acid Purifier Name Role Phone Igor Adkins DO Primary Care Physician Encounter [facility] Date(s): 08/13/21 - 10/12/[address] [address] Attending Physician: Thaddeus Box MD Admitting Physician: Thaddeus Box MD Referring Physician: Thaddeus Box MD Allergies, Adverse Reactions, Alerts Substance Reaction Severity Status NKA Active
[2024-03-16] MEDS: Lactated Ringers 1,000 ML 50 ML IVCONT (07:07)
--- NOTE | 2024-03-16 07:43 | HO.ANESPROP2 ---
HPI - Anesthesia Eval Consult details Narrative: for left knee replacement PMFSH Active Problems Active Problems: All Active Problems Osteoarthritis of left knee (Acute) Arthritis of right knee (Acute) Arthritis of left knee (Acute) Left knee pain (Acute) Past Medical History Medical History White coat syndrome with diagnosis of hypertension Sciatic leg pain Arthritis Anxiety GERD (gastroesophageal reflux disease) Cancer HTN (hypertension) Melanoma Elevated cholesterol Environmental allergies Family History Family history of problems with anesthesia: No Surgical History Surgical History Hx of meniscectomy of right knee Hx of hysterectomy Hx of colonoscopy History of Problems with Anesthesia: No Social History Social History Are you a primary patient care secretary to a significant other at home: No Do you presently have visiting nurse or other home services: No Patient Tobacco Use Status: Never used Tobacco Use of substances other than those prescribed or required for medical reasons: No Have you been hit, kicked, punched, or otherwise hurt by someone within the past year? If so, by whom?: No Are you DNR?: No Advance Directives Information Provided: Yes (as above noted) Advance Directives on File: No Recently lost weight without trying: No Eating poorly because of decreased appetite: No Nutrition Risks: Surgical patient >75years Poor oral hygiene: No (caps, crowns, implants) Meds Allergies Allergy/AdvReac Type Severity Reaction Status Date / Time Sulfa (Sulfonamide Allergy Intermediate Rash Verified 03/11/24 10:30 Antibiotics) Active Medications: Current Medications Lactated Ringer's (Lr) 1,000 mls @ 50 mls/hr IVCONT .Q20H SABINE Last Admin: 03/16/24 07:07 Dose: 50 mls/hr Home Medications ?Medication ?Instructions ?Recorded ?Confirmed ?Last Taken ?Type multivitamin 1 tab PO QAM 07/11/21 03/10/24 03/09/24 History aspirin 81 mg tablet,delayed 81 mg PO QAM 02/14/24 03/10/24 03/09/24 History release (Adult Aspirin Regimen) atorvastatin 10 mg tablet 20 mg PO QAM 03/03/10/24 03/15/24 History lisinopril 5 mg tablet 10 mg PO QAM 02/14/24 03/10/24 03/15/24 History omeprazole 20 mg tablet,delayed 20 mg PO QAM 02/14/24 03/10/24 03/16/24 History release lorazepam 0.5 mg tablet 0.5 mg PO DAILY PRN Anxiety 03/10/24 03/10/24 03/16/24 History Exam Height,Weight and Vital Signs: Height 5 ft 5 in Weight 63.957 kg Last Vital Signs Temp 98 F 03/16/24 06:42 Pulse 88 03/16/24 06:42 Resp 18 03/16/24 06:42 BP 184/65 H 03/16/24 06:42 Pulse Ox 98 03/16/24 06:42 O2 Del Method Room Air 03/16/24 06:42 Pertinent Lab Results Pertinent Lab Results: Laboratory Tests 03/10/24 03/10/24 12:20 12:53 Nasal Screen MRSA (PCR) NEGATIVE Nasal S. aureus Screen NEGATIVE Nasal MRSA/S.aureus Interp SEE NOTE Blood Type B Positive Antibody Screen NEGATIVE Airway Mallampati Class: II TM Dist: >3cm Neck ROM: Limited Heart: rrr Lungs: cta Assessment and Plan Assessment Anesthesia Assessment: Anesthesia Plan Discussed and Chart Reviewed Final Anesthetic Review Family History of Problems with Anesthesia: No History of Problems with Anesthesia: No NPO: Yes ASA Class: III Final Preanesthetic Review: No Changes in Pt Med Stat, Meds/Allgs Chart Reviewed, Consent Obtained/Reviewed and Anes Risks/Benef Reviewed Patient Risk: Intermediate Procedure Risk: Intermediate Anesthetic Plan Anesthetic Plan: Spinal and Regional Block Disposition: Standard PACU
--- NOTE | 2024-03-16 07:50 | PHA.MEDREC ---
Pharmacy Consult ? Medication Reconciliation Pharmacy has reviewed the medication reconciliation completed by nursing.
--- NOTE | 2024-03-16 08:07 | PC.NURSE ---
pt receievd 1 liter of fluids ls clear
--- NOTE | 2024-03-16 08:19 | PC.NURSE ---
timeout for block complted at 0830 pt verbalized understanding nad vss
--- NOTE | 2024-03-16 11:58 | P.BOP_ITS ---
Brief Operative Note Date of Service: 03/16/24 Pre-op diagnosis: Left knee osteoarthritis Post-op diagnosis: same Procedure: Left total knee arthroplasty Implants: Senath Triathlon cemented posterior stabilized total knee arthroplasty with a femoral component size 3 left, tibial component size 3, polyethylene liner size 3 with 9 mm of thickness, a symmetric patellar component size 29 with 8 mm of thickness Surgeon: Sonu Kumar MD Anesthesia: regional and spinal Was an Dieing Out Machine Operator used for this Procedure?: No Dieing Out Machine Operator: Aisha Moraes Estimated blood loss (mL): 150 Pathology: other (Bony fragments from the left femur, tibia and patella) Condition: stable Disposition: PACU
--- NOTE | 2024-03-16 12:00 | W.PM.OPN ---
Operative Note Operative Note Date of Service: 03/16/24 Narrative: After the patient was identified as Chelo Clark and her left knee was initialed by myself the patient was brought to the holding area where a left leg nerve block was performed by the anesthesiologist in routine fashion. The patient was then brought to the operating room where conscious sedation and spinal anesthesia were performed by the anesthesiologist in routine fashion. The patient was given 2 g of IV Ancef preoperatively for infection prophylaxis. The patient's left lower extremity was prepped and draped in sterile fashion. A formal time-out was completed. The patient's left knee was placed onto a small bump to produce 30? of knee flexion during exposure. A #10 scalpel blade was used to make a midline incision extending 1 handbreadth proximal and distal to the patella. A second #10 scalpel blade was used to dissect the subcutaneous tissues down to the extensor mechanism. The subcutaneous flaps were maintained as thick as possible. A medial parapatellar arthrotomy was then performed using a #10 scalpel blade. The arthrotomy was begun just medial to the patellar tendon. The arthrotomy was continued 1 cm medial to the patella and then 5 mm into the medial aspect of the quadriceps tendon. The infrapatellar fat pad was partially excised to help with exposure. The soft tissue retinaculum was raised one-half of the way around the medial aspect of the proximal tibia. The patella was everted and the knee was flexed to 90?. There was no injury to the patellar tendon or its insertion onto the tibial tubercle. A drill bit was introduced into the distal aspect of the femur with a starting point 1 cm anterior to the origin of the posterior cruciate ligament. The intramedullary alignment jennifer was put into place. The distal alignment guide was set for a 5 degree valgus cut. The distal cutting block was put into place and was held with 4 pins. The intramedullary alignment jennifer was removed. Soft tissues were retracted in the distal femoral cut was made using a sagittal saw. The distal aspect of the femur measured to be a size 3 left component. Two drill holes were placed into the distal aspect of the femur marking 3? of external rotation. The distal cutting block was impacted into place and was held with 2 pins. Soft tissues were retracted and the 4 distal femoral cuts were made using a sagittal saw. Final notching and drilling of the distal aspect of the femur were performed in routine fashion. The trial femoral component was impacted into place. The knee was taken through a full range of motion. The patella tracked well. The patella was everted and the knee was flexed to 90?. The trial component was removed and our attention was directed to the proximal tibia. The medial and lateral menisci were removed using a #10 scalpel blade. A small rim of the medial meniscus was left intact to help prevent injury to the medial collateral ligament. A drill bit was then introduced into the proximal tibia with a starting point midway from medial to lateral and one-third of the way posteriorly. The intramedullary alignment jennifer was put into place. The proximal tibial cutting guide was placed over the alignment jennifer in line with the 2nd toe. The guide was held in place using 3 pins. The intramedullary alignment jennifer was removed. Soft tissues were retracted and the proximal tibial cut was made using a sagittal saw. The proximal tibia measured to be a size 3 component. The tibial tray was put into place with a 9 mm liner. The femoral component was impacted into place. The knee was taken through a full range of motion. There was full flexion and full extension. There was no instability with varus or valgus stress testing with the knee in flexion or extension. The patella tracked well with no medially directed force. The rotation of the tibial tray was marked using electrocautery with the knee in extension. The patella was everted and the knee was flexed to 90?. All trial components were removed. The tibial tray was placed onto the proximal tibia in line with the electrocautery eryn. The tray was held in place using 3 pins. Final broaching of the proximal tibia was performed in routine fashion. The trial liner and trial femoral component were put into place. The knee was brought into extension and our attention was directed to the patella. The patella measured 25 mm in thickness. The patellar resection guide was set for a 10 mm resection. Soft tissues were retracted and the patella cut was made using a sagittal saw. The remaining patella measured 15 mm in thickness. The undersurface of the patella was measured to be a size 29 symmetric component. Three drill holes were placed into the undersurface of the patella in routine fashion. The trial component was put into place. The knee was taken through a full range of motion. The patella tracked well. The patella was everted and the knee was flexed to 90?. All trial components were removed. The knee was once again brought into extension and placed onto a small bump. The knee joint was irrigated with copious amounts of normal saline solution via pulse lavage while the cement was mixed. The patella was everted and the knee was flexed to 90?. A small amount of cement was placed along the posterior aspects of the tibial and femoral components. Cement was then pressurized into the proximal tibia. The tibial component was impacted into place. Any excess cement was removed. The polyethylene liner was then impacted into place. Cement was then pressurized into the distal aspect of the femur. A small amount of cement was placed into the intramedullary canal to help reduce bleeding. The femoral component was impacted into place. Any excess cement was removed. The knee was then brought into extension. Cement was pressurized into the undersurface of the patella. The patellar component was put into place and was held with a patella clamp. Any excess cement was removed. Once the cement had hardened the patellar clamp was removed. The knee was taken through a full range of motion. There was full flexion and extension. There was no instability with varus or valgus stress testing with the knee in flexion or extension. The patella tracked well with no medially directed force. The knee joint was irrigated with copious amounts of normal saline solution via pulse lavage. Any significant bleeding vessels were coagulated. The patient's left knee was placed onto a small bump. The arthrotomy was closed with #2 Ethibond [id number] interrupted suture as well as #1 Vicryl anmbne-hy-[id number] interrupted suture. The wound was once again irrigated. The subcutaneous tissues were closed with 0 Vicryl and 2-0 Vicryl interrupted sutures. The skin was closed with skin vickie. Dry sterile dressing and Jorge bandages were placed over the patient's left knee. The patient was awake and alert. The patient was transferred to the recovery room in stable condition.
[2024-03-16] MEDS: HYDROmorphone HCl 0.5 MG/0.5 ML SYRINGE 0.25 MG IVPUSH (13:41)
[2024-03-16] MEDS: Lactated Ringers 1,000 ML 100 ML IVCONT (13:41)
--- NOTE | 2024-03-16 13:45 | P.HPHOSP_ITS ---
History of Present Illness Date of Service: 03/16/24 Attending physician on admission: Sonu Kumar Chief Complaint: Med management 78-year-old female with past medical history of hypertension, hypercholesteremia, anxiety, Gerd: Patient to the hospital has left knee pain due to left knee osteoarthritis-followed by ortho patient out patiently: Patient is having difficulty walking and more pain out patiently tried physical therapy pain medications and injections out patiently did not help-came to the hospital for elective left TKA: Status post left TKA today. Postop she is doing fine, has some pain and discomfort in the left knee. Denies any new complaint of chest pain or shortness of breath or abdominal pain or fever or chills or nausea or vomiting Denies any cough Denies any weakness or numbness. Review of Systems Review of Systems: Yes all other systems are reviewed and are negative [facility] Medical History White coat syndrome with diagnosis of hypertension Sciatic leg pain Arthritis Anxiety GERD (gastroesophageal reflux disease) Cancer HTN (hypertension) Melanoma Elevated cholesterol Environmental allergies Surgical History Hx of meniscectomy of right knee Hx of hysterectomy Hx of colonoscopy Social History Are you a primary rn progressive care to a significant other at home: No Do you presently have visiting nurse or other home services: No Patient Tobacco Use Status: Never used Tobacco Use of substances other than those prescribed or required for medical reasons: No Have you been hit, kicked, punched, or otherwise hurt by someone within the past year? If so, by whom?: No Are you DNR?: No Advance Directives Information Provided: Yes (as above noted) Advance Directives on File: No Recently lost weight without trying: No Eating poorly because of decreased appetite: No Nutrition Risks: Surgical patient >75years Poor oral hygiene: No (caps, crowns, implants) Meds Allergies Allergy/AdvReac Type Severity Reaction Status Date / Time Sulfa (Sulfonamide Allergy Intermediate Rash Verified 03/11/24 10:30 Antibiotics) Active Medications: Current Medications Acetaminophen (Acetaminophen 325 Mg Tablet) 650 mg PO Q6H PRN PRN Reason: Pain, Mild (Pain Scale 1-3) Hydrocodone Bitart/Acetaminophen (Hydrocodone Bit/Acetam 5/325 Tablet) 1 tab PO Q4H PRN PRN Reason: Pain, Moderate(Pain Scale 4-6) Hydrocodone Bitart/Acetaminophen (Hydrocodone Bit/Acetam 7.5/325 Tablet) 1 tab PO Q4H PRN PRN Reason: Pain, Moderate(Pain Scale 4-6) Aspirin (Aspirin 325 Mg Tablet) 325 mg PO BID [facility] Atorvastatin Calcium (Atorvastatin Calcium 20 Mg Tablet) 20 mg PO DAILY [facility] Docusate Sodium (Docusate Sodium 100 Mg Capsule) 100 mg PO BID [facility] Gabapentin (Gabapentin 100 Mg Capsule) 100 mg PO BEDTIME [facility] Hydromorphone HCl (Hydromorphone Hcl 0.5 Mg/0.5 Ml Syringe) 0.25 mg IVPUSH Q4H PRN; Protocol PRN Reason: Pain, Severe (Pain Scale 7-10) Last Admin: 03/16/24 13:41 Dose: 0.25 mg Hydromorphone HCl (Hydromorphone Hcl 0.5 Mg/0.5 Ml Syringe) 0.5 mg IVPUSH Q4H PRN; Protocol PRN Reason: Pain, Severe (Pain Scale 7-10) Lactated Ringer's (Lr) 1,000 mls @ 100 mls/hr IVCONT .Q10H [facility] Last Admin: 03/16/24 13:41 Dose: 100 mls/hr Cefazolin Sodium/Dextrose (Ancef) 2 gm in 50 mls @ 100 mls/hr IV Q8H [facility] Stop: 03/17/24 02:00 Lisinopril (Lisinopril 10 Mg Tablet) 10 mg PO DAILY [facility]; Protocol Lorazepam (Lorazepam 0.5 Mg Tablet) 0.5 mg PO DAILY PRN PRN Reason: Anxiety Methocarbamol (Methocarbamol 500 Mg Tablet) 500 mg PO TID [facility] Omeprazole (Omeprazole 20 Mg Capsule.Dr) 20 mg PO DAILY [facility] Ondansetron HCl (Ondansetron Hcl 4 Mg/2 Ml Vial) 4 mg IVPUSH Q8H PRN PRN Reason: Nausea and Vomiting Oxycodone HCl (Oxycodone Hcl Er 10 Mg Tab.Er.12h) 10 mg PO BID [facility] Sodium Chloride (0.9 % Sodium Chloride Flush 3 Ml Syringe) 3 ml IVFLUSH QSHIFT [facility] Home Medications ?Medication ?Instructions ?Recorded ?Confirmed ?Last Taken ?Type multivitamin 1 tab PO DAILY 07/11/21 03/16/24 03/09/24 History aspirin 81 mg tablet,delayed 81 mg PO DAILY 02/14/24 03/16/24 03/09/24 History release (Adult Aspirin Regimen) omeprazole 20 mg tablet,delayed 20 mg PO DAILY@0630 02/14/24 03/16/24 03/16/24 History release lorazepam 0.5 mg tablet 0.5 mg PO DAILY PRN Anxiety 03/10/24 03/10/24 03/16/24 History atorvastatin 20 mg tablet 20 mg PO DAILY 03/16/24 03/16/24 03/15/24 History lisinopril 10 mg tablet 10 mg PO DAILY 03/16/24 03/16/24 03/15/24 History Physical Exam Vital Signs and Narrative: Vital Signs: Last Vital Signs Temp 96.9 F 03/16/24 13:09 Pulse 74 03/16/24 13:09 Resp 19 03/16/24 13:41 BP 132/64 03/16/24 13:09 Pulse Ox 100 03/16/24 13:09 O2 Del Method Room Air 03/16/24 13:09 O2 Flow Rate 6 03/16/24 11:40 BMI result Body Mass Index 23.5 Appearance: Alert.? Oriented X3.? . cvs: rrr, [id number] , no murmur res: clear to auscultation ,no rhonchii or wheezing abd: no rebound or guarding ,nt, bs present. ext pulses present , no cyanosis left knee -wrapped ,no swelling,some discomfort . neuro: axo3 , nonfocal. Assessment and Plan (1) Osteoarthritis of left knee: Qualifiers: Osteoarthritis type: unspecified Qualified Code(s): M17.12 - Unilateral primary osteoarthritis, left knee Status: Acute Plan 78-year-old female with past medical history of hypertension, hypercholesteremia, anxiety, Gerd -came with left knee OA . left OA: s/p Left TKA day1. continue tylenol ,dilaudid ,oxycodone ,colace . incentive sher. HTn:continue home lisinopril. Gerd: continue omeprazole. antxiety: continue ativan. dvt prophylax:scd per primary team. Will sign off now please call us for any questions ,thank you for letting us participate in the patient care. Quality Stroke Does the patient have a stroke diagnosis?: No VTE Prior VTE?: No VTE Risk Level:: Medical - moderate - high VTE Device Contraindication: N/A - Device Ordered VTE Drug Contraindication: N/A - Med Ordered
[2024-03-16] MEDS: 0.9 % Sodium Chloride Flush 3 ML SYRINGE IVFLUSH ×2 (15:10→23:28)
[2024-03-16] MEDS: methocarbamoL 500 MG TABLET PO ×2 (15:10→20:55)
[2024-03-16] MEDS: HYDROmorphone HCl 0.5 MG/0.5 ML SYRINGE IVPUSH ×2 (15:10→23:29)
[2024-03-16] MEDS: ceFAZolin Sodium/Dextrose,Iso 2 GM/50 ML PIGGYBACK IV ×2 (15:59→23:32)
[2024-03-16] MEDS: Aspirin 325 MG TABLET PO (16:48)
[2024-03-16] MEDS: ondansetron HCL 4 MG/2 ML VIAL IVPUSH (17:07)
[2024-03-16] MEDS: HYDROcodone Bit/Acetam 7.5/325 TABLET 1 TAB PO ×2 (17:07→20:55)
[2024-03-16] MEDS: Acetaminophen 325 MG TABLET 650 MG PO (17:07)
[2024-03-16] MEDS: Gabapentin 100 MG CAPSULE PO (20:55)
[2024-03-16] MEDS: Docusate Sodium 100 MG CAPSULE PO (20:55)
[2024-03-16] MEDS: oxyCODONE HCl ER 10 MG TAB.ER.12H PO (20:55)
[2024-03-16] MEDS: Melatonin 3 MG TABLET 6 MG PO (23:35)
[2024-03-17 02:56] VITALS: BP 148/66; PULSE 68; RESP 18; TEMP 36.6; O2SAT 100
[2024-03-17] MEDS: HYDROcodone Bit/Acetam 7.5/325 TABLET 1 TAB PO (02:56)
[2024-03-17] MEDS: ondansetron HCL 4 MG/2 ML VIAL IVPUSH ×2 (04:11→18:42)
[2024-03-17] MEDS: HYDROmorphone HCl 0.5 MG/0.5 ML SYRINGE IVPUSH ×3 (04:13→16:10)
[2024-03-17] MEDS: Aspirin 325 MG TABLET PO ×2 (05:49→16:55)
[2024-03-17 06:07] LABS: MANUAL DIFF FLAG NO
[2024-03-17 06:11] LABS: Basophils Percent Auto 0.1 % (0-2); Hemoglobin 11.3 g/dl (12.0-16.0); Imm Gran Abs Auto 0.03 X10*3/uL (0.00-0.03); Imm Gran Pct Auto 0.3 % (0.0-0.4); Lymphocytes Absolute Auto 0.7 X10*3/uL (1.2-4.9); Lymphocytes Percent Auto 6.1 % (20-40); Mean Corpuscular HGB Conc 33.2 g/dl (31.0-35.0); Mean Corpuscular Hemoglobin 29.9 pg (27.0-33.0); Mean Corpuscular Volume 89.9 fL (80.0-98.0); Mean Platelet Volume 9.9 fL (9.4-12.3); Monocytes Absolute Auto 1.4 X10*3/uL (0.1-1.2); Monocytes Percent Auto 12.8 % (2-11); Neutrophils Absolute Auto 8.7 x10*3/uL (2.0-8.3); Neutrophils Percent Auto 80.7 % (45-73); Platelet Count 232 X10*3/uL (160-400); Red Blood Count 3.78 X10*6/uL (4.20-5.50); White Blood Count 10.7 X10*3/uL (4.8-10.8)
[2024-03-17 06:25] LABS: Anion Gap 12 (12-20); Blood Urea Nitrogen 20 mg/dL (9-16); Calcium 8.7 mg/dL (8.4-10.2); Carbon Dioxide 24 mmol/L (22-29); Chloride 108 mmol/L (96-108); Creatinine Clr Calc Pharmacy 49.5; Estimated Glomerular Filt Rate > 60; Glucose Fasting 124 mg/dL (60-99); Sodium 140 mmol/L (135-145)
--- NOTE | 2024-03-17 07:11 | P.PNOP_ITS ---
Subjective Subjective Date of Service: 03/17/24 Interval history: POD1 s/p LTKA Patient is resting in bed comfortably No overnight events Patient complains of uncontrolled pain - Made adjustments accordingly No additional complaints Physical Exam Vital Signs: Vital Signs: Last Vital Signs Temp 97.9 F 03/17/24 02:56 Pulse 68 03/17/24 02:56 Resp 18 03/17/24 02:56 BP 148/66 H 03/17/24 02:56 Pulse Ox 100 03/17/24 02:56 O2 Del Method Room Air 03/17/24 02:56 O2 Flow Rate 6 03/16/24 11:40 BMI result Body Mass Index 23.5 Const: General: cooperative, healthy appearing and no acute distress Resp: Effort & Inspection: normal respiratory effort and able to speak in complete sentences Cardio: Rate: regular rate Peripheral pulses: Peripheral pulses 2+ throu ghout GI: Palpation (GI): Soft to palpation Skin: Lesions: no lesions Rashes: no rashes Extrem: Other: left knee dressing is c/d/i. Able to dorsi/plantar flex. Calf is supple and nontender. Sensation intact. Pedal pulse intact. Procedures Date of Service Date of Service: 03/17/24 Progress Note: A&P Assessment and plan (1) Status post total knee replacement, left: Status: Acute Plan Continue pain mgmnt Begin ASA for dvt ppx begin PT for LTKA Dispo planning-PT, patient will need ongoing hospitalization for poor pain control Time Spent With Patient Time: Total time managing care of this patient today ____ minutes. Quality Stroke Does the patient have a stroke diagnosis?: No VTE Prior VTE?: No VTE Risk Level:: Medical - moderate - high VTE Device Contraindication: N/A - Device Ordered VTE Drug Contraindication: N/A - Med Ordered
[2024-03-17 07:27] VITALS: BP 153/69; PULSE 82; RESP 16; TEMP 36.2; O2SAT 97
[2024-03-17 08:16] VITALS: RESP 16
[2024-03-17] MEDS: methocarbamoL 500 MG TABLET PO ×3 (08:16→20:40)
[2024-03-17] MEDS: Omeprazole 20 MG CAPSULE.DR PO (08:16)
[2024-03-17] MEDS: Docusate Sodium 100 MG CAPSULE PO ×2 (08:16→20:40)
[2024-03-17] MEDS: Atorvastatin Calcium 20 MG TABLET PO (08:16)
[2024-03-17 08:17] VITALS: BP 153/69
[2024-03-17] MEDS: 0.9 % Sodium Chloride Flush 3 ML SYRINGE IVFLUSH ×2 (08:17→16:11)
[2024-03-17] MEDS: lisinopriL 10 MG TABLET PO (08:17)
[2024-03-17] MEDS: oxyCODONE HCl ER 10 MG TAB.ER.12H PO ×2 (08:17→20:41)
--- NOTE | 2024-03-17 08:39 | HO.POSTANES ---
Post Anesthesia Evaluation Post Anesthesia Evaluation Date of Service: 03/17/24 Vital Signs: Vital Signs Temp Pulse Resp BP Pulse Ox O2 Del Method 03/17/24 08:17 153/69 H 03/17/24 08:16 16 03/17/24 07:27 97.1 F 82 16 153/69 H 97 Room Air 03/17/24 02:56 97.9 F 68 18 148/66 H 100 Room Air Anesthesia: Spinal and Nerve Block (Obturator, Ipack nerve blocks) Mental Status: Awake Pain Control: Satisfactory Nausea/Vomiting: None Hydration: Adequate Anesthesia-Related Issues: No Anes. Related Issues
[2024-03-17] MEDS: HYDROmorphone HCl 2 MG TABLET PO ×2 (09:55→20:40)
--- NOTE | 2024-03-17 10:15 | MHC.CM.PN ---
pt will be having someone stay with her when she goes home ,pt has own ride home she will be having overlook vna when dcd
[2024-03-17 15:35] VITALS: BP 144/50; PULSE 87; RESP 16; TEMP 36.4; O2SAT 96
[2024-03-17] MEDS: Acetaminophen 325 MG TABLET 650 MG PO ×2 (16:54→23:05)
[2024-03-17 20:00] VITALS: BP 141/67; PULSE 79; RESP 16; TEMP 36.8; O2SAT 97
[2024-03-17] MEDS: Gabapentin 100 MG CAPSULE PO (20:40)
[2024-03-18] MEDS: 0.9 % Sodium Chloride Flush 3 ML SYRINGE IVFLUSH ×2 (00:26→08:34)
[2024-03-18 03:33] VITALS: BP 157/72; PULSE 80; RESP 16; TEMP 36.3; O2SAT 95
[2024-03-18] MEDS: Aspirin 325 MG TABLET PO (06:10)
[2024-03-18 06:50] LABS: Anion Gap 9 (12-20); Blood Urea Nitrogen 21 mg/dL (9-16); Calcium 8.5 mg/dL (8.4-10.2); Carbon Dioxide 27 mmol/L (22-29); Chloride 106 mmol/L (96-108); Creatinine Clr Calc Pharmacy 52.4; Estimated Glomerular Filt Rate > 60; Glucose Fasting 106 mg/dL (60-99); Potassium 3.3 mmol/L (3.3-5.1); Sodium 139 mmol/L (135-145)
[2024-03-18 07:25] VITALS: BP 149/67; PULSE 81; RESP 16; TEMP 36.5; O2SAT 97
--- NOTE | 2024-03-18 07:27 | PM.DS ---
DS: Providers Provider Date of Service: 03/18/24 Date of admission: 03/16/24 06:33 Primary care physician: Igor Adkins DO Consults: 03/16/24 12:56 Consult to Hospitalist Routine Comment: Consulting Provider: Hospitalist Reason For Exam: routine medical management DS: Diagnosis Discharge Diagnosis (1) Status post total knee replacement, left: Status: Acute DS: Summary Hospital Course Hospital Course: The patient underwent a successful left total knee arthroplasty, they were transferred to PACU and then to the floor to recover. During their stay, their vitals were stable, afebrile at 97.4. Labs were unremarkable, H/H . POD 1 they were started on Aspirin 325mg po bid for DVT ppx, they also received Physical Therapy services twice a day. Prior to discharge, their dressing was clean dry and intact, and the plan was to be discharged home with VNA services. Time Attestation Discharge Coordination Time (in mins): 30 Quality: Safe Use of Opioids Does Pt have an Active Cancer Diagnosis on the Problem List?: No Quality: Stroke Does the patient have a stroke diagnosis?: No Physical Exam Vital Signs: Vital Signs: Last Vital Signs Temp 97.7 F 03/18/24 07:25 Pulse 81 03/18/24 07:25 Resp 16 03/18/24 07:25 BP 149/67 H 03/18/24 07:25 Pulse Ox 97 03/18/24 07:25 O2 Del Method Room Air 03/18/24 07:25 O2 Flow Rate 6 03/16/24 11:40 BMI result Body Mass Index 23.5 Const: General: cooperative, healthy appearing and no acute distress Resp: Effort & Inspection: normal respiratory effort and able to speak in complete sentences Cardio: Rate: regular rate Peripheral pulses: Peripheral pulses 2+ throughout GI: Palpation (GI): Soft to palpation Skin: Lesions: no lesions Rashes: no rashes Extrem: Other: left knee dressing is c/d/i. Able to dorsi/plantar flex. Calf is supple and nontender. Sensation intact. Pedal pulse intact. DS: Data Data Completed and Pending Pending studies at discharge: Pending at discharge 03/16/24 09:41 Surgical [PTH] Routine Labs on day of discharge: Laboratory Results - last 24 hr 03/18/24 05:46 Sodium 139 Potassium 3.3 Chloride 106 Carbon Dioxide 27 Anion Gap 9 L BUN 21 H Creatinine 0.82 Estim Creat Clear Calc 52.4 Estimated GFR > 60 Fasting Glucose 106 H Calcium 8.5 Discharge Plan Discharge Anticipated Discharge Date/Time: 03/18/24 13:22 Patient Disposition: Home Health Service Discharge Diagnosis: s/p LTKA Referrals: Igor Adkins DO [Primary Care Provider] - 1 Week Aisha Moraes PA-C [Physician Residence Counselor] - 04/02/24 12:30 pm Discharge Medications: New methocarbamol 500 mg Tablet 500 mg PO TID 7 Days Qty: 21 0RF aspirin 325 mg Tablet 325 mg PO Q12H 42 Days Qty: 84 0RF hydromorphone 2 mg Tablet 2 mg PO Q3H PRN (Reason: Pain, Moderate(Pain Scale 4-6)) 7 Days Qty: 56 0RF Rx Instructions: Partial Fill upon patient request. docusate sodium 100 mg Capsule 100 mg PO BID 30 Days Qty: 60 0RF gabapentin 100 mg Capsule 100 mg PO BEDTIME 7 Days Qty: 7 0RF Continued (DME) walker Misc See Rx Instructions .ROUTE .MEDSUPPLY Qty: 1 0RF Rx Instructions: Folding front wheeled walker multivitamin Tablet 1 tab PO DAILY lorazepam 0.5 mg tablet 0.5 mg PO DAILY PRN (Reason: Anxiety) atorvastatin 20 mg tablet 20 mg PO DAILY lisinopril 10 mg tablet 10 mg PO DAILY omeprazole 20 mg tablet,delayed release (DR/EC) 20 mg PO DAILY@0630 Held aspirin [Adult Aspirin Regimen] 81 mg tablet,delayed release (DR/EC) 81 mg PO DAILY Hold Instructions: Resume on 04/29/24. Discharge Orders: Discharge Order (Routine); Ordered 03/18/24 Ordered By: Aisha Moraes Diet: Advance to usual diet Activity on Discharge: Use cane or walker Stand Alone Forms: Patient Portal Discharge page Print Language: Hungarian Care Plan Goals: restore fxn to left knee Health Concerns: none Plan of Treatment: Physical Therapy for ROM 0-120, quad strength, gait training. Use walker for ambulation Limit stair climbing, No shower, No tub bath, No driving Continue anticoagulant x 6 weeks Keep Aquacel dressing clean, dry and intact. Follow up with orthopedics in 2 weeks Assessment: stable for d/c
--- NOTE | 2024-03-18 07:29 | W.MHC.F2F ---
Service Date Service Date: 03/18/24 Encounter Date of encounter: 03/18/24 Reasons for Services Signs and symptoms assessed: Pt. is considered homebound due to recent surgery. Unable to drive, poor balance, poor gait mechanics. S/p LTKA. Reason for physical therapy: home safety and mobility, therapeutic exercises, restore joint function, gait/transfer training, assess need for DME and ADL training Homebound: Leaving the home is medically contraindicated at this time without the asist of a device and/or another person due th the listed conditions above and below. Reason homebound: unsteady gait / fall risk, leg weakness, pain with ambulation, pain with transfers, poor balance / fall risk and unable to drive Certification: Based on the above findings, I certify that this patient is confined to the home and needs intermittent penitentiary care, physical therapy and/or speech therapy, or continues to need occupational therapy. The patient is under my care, and I have initiated the establishment of the plan of care. The patient will be followed by a physician who will periodically review the plan of care. Time Spent With Patient Time: Total time managing care of this patient today ____ minutes.
[2024-03-18 08:13] LABS: Hematocrit 32.4 % (37.0-47.0); Hemoglobin 10.7 g/dl (12.0-16.0)
[2024-03-18] MEDS: Atorvastatin Calcium 20 MG TABLET PO (08:31)
[2024-03-18] MEDS: Docusate Sodium 100 MG CAPSULE PO (08:31)
[2024-03-18] MEDS: lisinopriL 10 MG TABLET PO (08:31)
[2024-03-18] MEDS: oxyCODONE HCl ER 10 MG TAB.ER.12H PO (08:31)
[2024-03-18] MEDS: Omeprazole 20 MG CAPSULE.DR PO (08:31)
[2024-03-18] MEDS: methocarbamoL 500 MG TABLET PO (08:32)
--- NOTE | 2024-03-18 08:33 | MHC.CM.PN ---
EMR reviewed. Patient medically cleared for dc home w/ [facility]. Family will transport home.
== END 2024-03-18 11:04 | disposition home health service (06) | DRG 470 ==
LOC: HO.SSSA 10:59 → HO.S3 11:49
PROVIDERS: Physician Assistant; Admitting Provider Orthopaedic Surgery; PCP Internal Medicine; Visit Provider Orthopaedic Surgery
PROC: 0SRD0J9 Replacement of Left Knee Joint with Synthetic Substitute, Cemented, Open Approach (ICD-10-PCS; CPT 27447; principal; 2024-03-16 08:40)
DX: M17.12 Unilateral primary osteoarthritis, left knee (principal); E78.00 Pure hypercholesterolemia, unspecified; G89.18 Other acute postprocedural pain; K21.9 Gastro-esophageal reflux disease without esophagitis; F41.9 Anxiety disorder, unspecified; I10 Essential (primary) hypertension; Z79.82 Long term (current) use of aspirin; Z79.899 Other long term (current) drug therapy
CPT/HCPCS: 36415; 80048; 85014; 85018; 85025; 86850; 86900; 86901; 87640; 87641; 88305; 88311; 97110; 97116; 97161; C1776; J0131; J0665; J0690; J1100; J1170; J2250; J2405; J2704; J3370; J7120

== ENCOUNTER → 2024-03-16 06:33 | Outpatient (BNV) | payer MEDICARE, SELFPAY | PROVIDERS: Admitting Provider Orthopaedic Surgery; PCP Internal Medicine; Visit Provider Orthopaedic Surgery | DX: Z47.1 Aftercare following joint replacement surgery (principal); Z96.652 Presence of left artificial knee joint | CPT/HCPCS: 27447; 99024; 99212; G0180 ==

== ENCOUNTER → 2024-03-16 06:33 | Outpatient (BNV) | payer MEDICARE, SELFPAY | PROVIDERS: Admitting Provider Orthopaedic Surgery; PCP Internal Medicine; Visit Provider Internal Medicine | DX: M17.12 Unilateral primary osteoarthritis, left knee (principal) | CPT/HCPCS: 99221 ==

== ENCOUNTER 2024-04-02 10:35 | Outpatient (REF) | payer MEDICARE, SELFPAY ==
--- NOTE | ~2024-04-02 | XR_ITS ---
EXAMINATION: XR KNEE, LEFT CLINICAL INFORMATION: Pain COMPARISON: 09/04/2023 TECHNIQUE: Four views of the left knee. FINDINGS: Prosthetic components of the total knee arthroplasty are appropriately aligned. No periprosthetic fracture. Soft tissue vickie are noted.. A joint effusion is present. AP view of the right knee joint demonstrates moderate osteoarthritis. XR/XR knee LT 3V IMPRESSION: Appropriate alignment of the left total knee arthroplasty without evidence of periprosthetic fracture.
== END 2024-04-02 10:36 | disposition home or self-care (01) ==
LOC: HO.HOSX 10:35
PROVIDERS: Visit Provider Physician Assistant
DX: M25.462 Effusion, left knee (principal); Z96.652 Presence of left artificial knee joint
CPT/HCPCS: 73562; 99212

== ENCOUNTER 2024-04-02 12:13 | Outpatient (AMB) | payer MEDICARE, SELFPAY ==
--- NOTE | 2024-04-02 12:33 | A.OFFVIS_ITS ---
Vital Signs 04/02/24 12:35 Height 5 ft 5 in Weight 144 lb BMI 24.0 Intake Visit Reasons: PO-LT TKA 03/16/24 Intake Note: Chelo is a 78 year old female who presents today for a post op appointment s/p LT TKA 03/16/24 Patient reports her knee is feeling great and happy. Allergies Sulfa (Sulfonamide Antibiotics) Allergy (Intermediate, Verified 04/02/24 12:34) Rash HPI HPI PO-LT TKA 03/16/24 DR: Details: 78-year-old female who presents in the office today 16 days status post left total knee arthroplasty, which was performed on 03/16/[address] Kumar. While in the office today the patient reports he knee is feeling great and she is happy with her postoperative recovery at this point. [facility] Medical History White coat syndrome with diagnosis of hypertension Sciatic leg pain Arthritis Anxiety GERD (gastroesophageal reflux disease) Cancer HTN (hypertension) Melanoma Elevated cholesterol Environmental allergies Surgical History Hx of meniscectomy of right knee Hx of hysterectomy Hx of colonoscopy Social History Household Members: None Housing: House Are you a primary medicare biller to a significant other at home: No Do you presently have visiting nurse or other home services: No Patient Tobacco Use Status: Never used Tobacco service: No Review of Systems Const All systems reviewed & are unremarkable except as noted in HPI and below Physical Exam Vital Signs: BMI result Body Mass Index 24.0 Const General: cooperative, healthy appearing and no acute distress Resp Effort & Inspection: normal respiratory effort and able to speak in complete sentences Cardio Rate: regular rate Peripheral pulses: Peripheral pulses 2+ throughout GI Palpation (GI): Soft to palpation Skin Lesions: no lesions Rashes: no rashes Extrem Other: Left knee: Incision site is clean, dry, and intact. Karla intact. No surrounding erythema or drainage. No signs of infection. ROM is 0-110 degrees. NVI. Assessment & Plan Assessment & Plan (1) Status post total knee replacement, left: Onset Date: ~03/16/24 Comment: Dr. Kumar Code(s): Z96.652 - Presence of left artificial knee joint Category: Surgical Plan Ms. Clark is a 78-year-old female who presents in the office today 16 days status post left total knee arthroplasty, which was performed on 03/16/[address] Kumar. While in the office today the patient reports he knee is feeling great and she is happy with her postoperative recovery at this point. Karla were removed and steri-stripes were applied. She has one more week of home PT and after this she will transition to outpatient PT. An order for this was made in the office today. I sent a prescription for an antibiotic prophylactically for possible dental work in the future. However, the patient was educated they should not have any major dental work for the first 3 months post op after the left total knee arthroplasty. Follow up will be in [address] Kumar, or sooner if needed. X-rays of the left knee which were obtained while in the office today and were reviewed by me, Aisha Moraes PA-C, revealed intact orthopedic hardware. Orders: Orders XR knee LT 3V Today M25.569 - Pain in unspecified knee PT Evaluation and Treatment Today Z96.652 - Presence of left artificial knee joint Medications: New amoxicillin 2,000 mg (4 x 500 mg) PO ONCE 1 day 4 tabs 0RF take 4 tabs by mouth 1 hour prior to dental ppx Patient Instructions: Scribed by Iman Marinelli, medical services coordinator, for Aisha Moraes PA-C on 04/02/2024 at 12:36 pm, EST. Coding Level of Care Code Global (17048) Diagnoses Status post total knee replacement, left Z96.652
[2024-04-02 12:35] VITALS: BMI 24.0
== END 2024-04-02 12:57 | disposition home or self-care (01) ==
PROVIDERS: PCP Internal Medicine; Visit Provider Physician Assistant
DX: Z96.652 Presence of left artificial knee joint (principal)
CPT/HCPCS: 99024

== ENCOUNTER 2024-04-13 13:23 | Outpatient (AMB) | payer MEDICARE, SELFPAY ==
[2024-04-13 13:52] VITALS: BMI 24.0
--- NOTE | 2024-04-13 13:52 | A.OFFVIS_ITS ---
Vital Signs 04/13/24 13:52 Height 5 ft 5 in Weight 144 lb BMI 24.0 Intake Visit Reasons: OV staple removal Left knee Intake Note: Chelo is a 78 year old female who states she had her vickie removed on 04/02/2024 from her left knee and states that there is still one left in place. She continues with her physical therapy exercises. She has no longer taking narcotics for discomfort. She denies any fevers or chills. Allergies Sulfa (Sulfonamide Antibiotics) Allergy (Intermediate, Verified 04/13/24 13:59) Rash Medication List - Last Reconciled 04/13/24 by Sonu Kumar MD amoxicillin 2,000 mg (4 x 500 mg) PO ONCE 1 day aspirin 325 mg PO Q12H 42 days aspirin (Adult Aspirin Regimen) 81 mg PO DAILY atorvastatin 20 mg PO DAILY docusate sodium 100 mg PO BID 30 days gabapentin 100 mg PO BEDTIME 7 days hydromorphone (Dilaudid) 2 mg (1/2 x 4 mg) PO Q4H 7 days lisinopril 10 mg PO DAILY lorazepam 0.5 mg PO DAILY PRN methocarbamol 500 mg PO TID 7 days multivitamin 1 tab PO DAILY omeprazole 20 mg PO DAILY@0630 walker Folding front wheeled walker [facility] Medical History Osteoarthritis of left knee White coat syndrome with diagnosis of hypertension Sciatic leg pain Arthritis Anxiety GERD (gastroesophageal reflux disease) Cancer HTN (hypertension) Melanoma Elevated cholesterol Environmental allergies Surgical History Hx of meniscectomy of right knee Hx of hysterectomy Hx of colonoscopy Social History Household Members: None Housing: House Are you a primary intensive care anaesthetist to a significant other at home: No Do you presently have visiting nurse or other home services: No Patient Tobacco Use Status: Never used Tobacco service: No Physical Exam Vital Signs: BMI result Body Mass Index 24.0 Extrem Other: Left knee examination shows that the surgical incision is well healed, no erythema, full active extension flexion 120 degrees, her patella tracks well, there is 1 staple remaining along the distal aspect of her incision Assessment & Plan Assessment & Plan (1) Left knee pain: Code(s): M25.562 - Pain in left knee Category: Medical Plan Ms. Clark continues to do very well after undergoing left total knee replacement surgery on 03/16/2024. Her remaining staple was removed without difficulty. She will continue with her physical therapy exercises. She does know to take antibiotics before any dental work. She will contact me prior to her follow-up appointment in 3 weeks should any questions or concerns arise. Feel free to call me at any time should questions regarding her orthopedic management arise. Coding Level of Care Code Global (73162) Diagnoses Left knee pain M25.562
== END 2024-04-13 14:19 | disposition home or self-care (01) ==
PROVIDERS: PCP Internal Medicine; Visit Provider Orthopaedic Surgery
DX: M25.562 Pain in left knee (principal)
CPT/HCPCS: 99024

== ENCOUNTER → 2024-04-13 13:23 | Outpatient (BNVA) | payer MEDICARE, SELFPAY | PROVIDERS: PCP Internal Medicine; Visit Provider Orthopaedic Surgery | DX: M25.562 Pain in left knee (principal) | CPT/HCPCS: 99212 ==

== ENCOUNTER 2024-05-14 12:34 | Outpatient (AMB) | payer MEDICARE, SELFPAY ==
--- NOTE | 2024-05-14 12:36 | A.OFFVIS_ITS ---
Vital Signs 05/14/24 12:38 Height 5 ft 5 in Weight 143 lb BMI 23.8 Intake Visit Reasons: PO-LT TKA 03/16/24 , Arthritis of right knee Intake Note: Chelo 78 year old female presents today for her post operative visit s/p Left TKA 03/16/24 Patient reports she is doing well. She has been doing PT and states she is doing very well with it. The patient does have progressively worsening right knee pain. She describes her right knee pain as sharp in nature. Most of her pain is along the medial aspect of her knee. She has tried Tylenol and anti-inflammatory medicines which gave her minimal relief. She wishes to hold off on right total knee replacement surgery for as long as possible. Allergies Sulfa (Sulfonamide Antibiotics) Allergy (Intermediate, Verified 05/14/24 12:39) Rash Medication List - Last Reconciled 05/15/24 by Sonu Kumar MD amoxicillin 2,000 mg (4 x 500 mg) PO ONCE 1 day aspirin (Adult Aspirin Regimen) 81 mg PO DAILY atorvastatin 20 mg PO DAILY lisinopril 10 mg PO DAILY lorazepam 0.5 mg PO DAILY PRN multivitamin 1 tab PO DAILY omeprazole 20 mg PO DAILY@0630 walker Folding front wheeled walker [facility] Medical History Osteoarthritis of left knee White coat syndrome with diagnosis of hypertension Sciatic leg pain Arthritis Anxiety GERD (gastroesophageal reflux disease) Cancer HTN (hypertension) Melanoma Elevated cholesterol Environmental allergies Surgical History Hx of meniscectomy of right knee Hx of hysterectomy Hx of colonoscopy Social History Household Members: None Housing: House Are you a primary career technical education teacher to a significant other at home: No Do you presently have visiting nurse or other home services: No Patient Tobacco Use Status: Never used Tobacco service: No Current occupational status: employed 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 Physical Exam Vital Signs: BMI result Body Mass Index 23.8 Const Other: Well-nourished well-developed very friendly female awake alert and oriented x3 in no acute distress Extrem Other: Bilateral lower extremity examination shows good capillary refill, no skin lesions noted, normal sensation light touch Left knee examination shows that the surgical incision is well healed, no erythema, full active extension and flexion to 125 degrees, her patella tracks well Right knee examination shows a minimal effusion, palpable crepitus with range of motion, pain with range of motion, no instability Office Procedures Joint Injection/Drain Joint Injection/Drain Primary Site: right knee Prep: site was prepped using aseptic technique Injected: 40 mg of, DepoMedrol and 1% plain lidocaine Procedure: The patient tolerated the procedure well Coding - Large joint Procedure code (CPT) selection complete Assessment & Plan Assessment & Plan (1) Arthritis of right knee: Code(s): M17.11 - Unilateral primary osteoarthritis, right knee Category: Medical (2) Left knee pain: Code(s): M25.562 - Pain in left knee Category: Medical Plan Ms. Clark continues to do very well after undergoing left total knee replacement surgery on 03/16/2024. She will continue going to formal physical therapy for now. She will gradually transition to a home exercise program. The patient does have right knee pain due to degenerative joint disease. She wishes to hold off on right total knee replacement surgery for as long as possible. I agree with this plan. The risks and benefits of a right knee cortisone injection were discussed at length with the patient. The patient wished to proceed. She tolerated the injection well. She will contact me prior to her follow-up appointment in 2 months should any questions or concerns arise. Feel free to call me at any time should questions regarding her orthopedic management arise. I spent 22 minutes in reviewing the patient's records and imaging studies, seeing the patient and documenting in the medical record. Orders: Orders AMB Joint Injection/Aspiration 05/14/24 M17.11 - Unilateral primary osteoarthritis, right knee Coding Level of Care Code Est Pt Level 3 (08691) Diagnoses Arthritis of right knee M17.11 Left knee pain M25.562 CPT Codes Coding - Large joint: 50503 - Large joint ([id number])
[2024-05-14 12:38] VITALS: BMI 23.8
== END 2024-05-14 13:03 | disposition home or self-care (01) ==
PROVIDERS: PCP Internal Medicine; Visit Provider Orthopaedic Surgery
DX: M17.11 Unilateral primary osteoarthritis, right knee (principal); M25.562 Pain in left knee
CPT/HCPCS: 20610; 99213

== ENCOUNTER → 2024-05-14 12:34 | Outpatient (BNVA) | payer MEDICARE, SELFPAY | PROVIDERS: PCP Internal Medicine; Visit Provider Orthopaedic Surgery | DX: M17.11 Unilateral primary osteoarthritis, right knee (principal); M25.562 Pain in left knee; Z96.652 Presence of left artificial knee joint | CPT/HCPCS: 20610; 99212; J1010 ==

== ENCOUNTER 2024-05-20 15:00 | Outpatient (RCR) | payer MEDICARE, SELFPAY ==
--- NOTE | 2024-04-17 14:57 | MHC.PT.EP ---
[facility] [place] Office [place] Office [place] Office [address] Emily Odom [address] [phone] F: [phone] F: [phone] F: [phone] F: [phone] Physical Therapy Plan of Care Date of Evaluation: 04/17/24 Date of Surgery: 03/16/24 Diagnosis: L TKA (RL) Assessment: pt is a 78 y/o female presenting to physical therapy w/ referring diagnosis of status post total knee replacement, left. Impairments include pain, decreased range of motion, decreased strength, impaired functional mobility, impaired postural awareness, and altered ambulation mechanics. pt is a good candidate for skilled PT due to age, potential remediation of impairments, typical disease/condition progression and prognosis, comorbidities, and motivation. pt would benefit from skilled PT intervention to provide a tailored strengthening and stretching exercise program, functional training, gait training, postural re-training, neuromuscular re-education, modalities as needed for pain, equipment safety demonstration. Frequency and Duration: The patient will be seen 2x/wk for 4 wks Short Term Goals: pt will be I w/ HEP to promote self-management w/ post-operative status. pt will improve B knee extension AROM by at least 10* to normalize gait pattern on even ground. Penitentiary Goals: pt will ascend/descend full flight of stairs using reciprocal pattern mod I level. pt will report a statistically significant improvement in self-reported outcome measure, LEFI, to promote return to PLOF. Treatment Plan: Modalities to reduce pain, spasms and effusion. Manual therapy to restore motion and function. Therapeutic exercise to improve strength and flexibility. Neuromuscular re-education for posture and balance. Therapeutic activities to return to functional activities of daily living. Electronically signed by: Sara Renee PT, DPT Please sign and return to therapist. Thank you for your referral.
--- NOTE | 2024-06-12 15:44 | MHC.PT.DC ---
[facility] [place] Office [place] Office [place] Office [address] Odom 140 [facility] [phone] F: [phone] F: [phone] F: [phone] F: [phone] Physical Therapy Discharge Report Diagnosis: L TKA (RL) Date of Surgery: 03/16/24 Date of Evaluation: 04/17/24 Date of Discharge: 06/12/24 Treatments to Date: 10 Cancellations to Date: 0 No Shows to Date: 0 Discharge Status: Improved Function Independent with HEP Discharge Summary: The patient has made significant progress regarding her post-operative knee rehab. She has returned to sport level activity without limitations to the left knee. She is discharged from this physical therapy plan of care. Electronically signed by: Saar Renee PT, DPT Please sign and return to therapist. Thank you for your referral.
== END 2024-06-12 15:45 | disposition home or self-care (01) ==
LOC: HO.PT 15:00
PROVIDERS: PCP Internal Medicine; Visit Provider Physician Assistant
DX: Z96.652 Presence of left artificial knee joint (principal)
CPT/HCPCS: 97110; 97140; 97161; 97530

== ENCOUNTER 2024-08-03 11:38 | Outpatient (REF) | payer MEDICARE, SELFPAY ==
--- NOTE | ~2024-08-03 | XR_ITS ---
EXAMINATION: XR KNEE, LEFT CLINICAL INFORMATION: Left knee pain. COMPARISON: 04/02/2024. TECHNIQUE: Three views of the left knee. FINDINGS: Prosthetic components of the total knee arthroplasty are appropriately aligned without periprosthetic fracture or abnormal lucency. No component migration. Small joint effusion. Mild generalized soft tissue swelling. Atherosclerotic calcifications are noted. Bones are osteopenic. XR/XR knee LT 3V IMPRESSION: 1. Appropriate alignment of the total knee arthroplasty without evidence of complications. 2. Small joint effusion. Electronically signed by: Mikel Tam MD 08/09/2024 05:34 PM EDT
== END 2024-08-03 11:39 | disposition home or self-care (01) ==
LOC: HO.XRAY 11:38
PROVIDERS: PCP Internal Medicine; Visit Provider Orthopaedic Surgery
DX: M25.562 Pain in left knee (principal)
CPT/HCPCS: 73562

== ENCOUNTER 2024-08-04 | Outpatient (REF) | payer MEDICARE, SELFPAY | END 2024-08-04 00:01 | disposition home or self-care (01) | LOC: CF | PROVIDERS: Visit Provider Orthopaedic Surgery | DX: M25.562 Pain in left knee (principal) | CPT/HCPCS: 99212 ==

== ENCOUNTER 2024-08-04 07:54 | Outpatient (AMB) | payer MEDICARE, SELFPAY ==
[2024-08-04 07:56] VITALS: BMI 23.8
--- NOTE | 2024-08-04 07:56 | A.OFFVIS_ITS ---
Vital Signs 08/04/24 07:56 Height 5 ft 5 in Weight 143 lb BMI 23.8 Intake Visit Reasons: Left knee pain Intake Note: Chelo 78 year old female who presents with complaints of left knee discomfort and a ?pulling sensation? after undergoing left total knee replacement surgery on March 16 2024. She denies any fevers or chills. She denies any locking or giving way. She does have ibuprofen 800 mg tablets but does not take any because she does not like taking medicines and they do not give her significant relief. Allergies Sulfa (Sulfonamide Antibiotics) Allergy (Intermediate, Verified 08/04/24 07:57) Rash Medication List - Last Reconciled 08/04/24 by Sonu Kumar MD amoxicillin 2,000 mg (4 x 500 mg) PO ONCE 1 day aspirin (Adult Aspirin Regimen) 81 mg PO DAILY atorvastatin 20 mg PO DAILY lisinopril 10 mg PO DAILY lorazepam 0.5 mg PO DAILY PRN multivitamin 1 tab PO DAILY omeprazole 20 mg PO DAILY@0630 walker Folding front wheeled walker [facility] Medical History Osteoarthritis of left knee White coat syndrome with diagnosis of hypertension Sciatic leg pain Arthritis Anxiety GERD (gastroesophageal reflux disease) Cancer HTN (hypertension) Melanoma Elevated cholesterol Environmental allergies Surgical History Hx of meniscectomy of right knee Hx of hysterectomy Hx of colonoscopy Social History Household Members: None Housing: House Are you a primary urgent care to a significant other at home: No Do you presently have visiting nurse or other home services: No Patient Tobacco Use Status: Never used Tobacco service: No Current occupational status: employed 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 Physical Exam Vital Signs: BMI result Body Mass Index 23.8 Const Other: Well-nourished well-developed very friendly female awake alert and oriented x3 in no acute distress Extrem Other: Bilateral lower extremity examination shows good capillary refill, no skin lesions noted, normal sensation light touch Left knee examination shows range of motion from -3 degrees to 125 degrees with minimal discomfort, her patella tracks well Results Reviewed Results Reviewed: X-rays of the patient's left knee taken today show a total knee arthroplasty in good position with no signs of loosening, no acute bony abnormalities Assessment & Plan Assessment & Plan (1) Left knee pain: Code(s): M25.562 - Pain in left knee Category: Medical Plan Ms. Clark continues to do well after undergoing left total knee replacement surgery on 03/16/2024. The patient does have intermittent discomfort most likely due to continued healing. I discussed with the patient the fact that recovery after total knee replacement surgery typically takes up to a year. She will continue with her home exercise program. I did offer to give her a prescription for Celebrex to help with her discomfort but she does not want it at this time. She does know to take antibiotics before any dental work. She will contact me prior to her appointment for her right knee cortisone injection should her symptoms worsen in any way. Feel free to call me at any time should questions regarding her orthopedic management arise. I spent 22 minutes in reviewing the patient's records and imaging studies, seeing the patient and documenting in the medical record. Orders: Orders XR knee LT 3V 08/03/24 M25.562 - Pain in left knee Coding Level of Care Code Est Pt Level 3 (33202) Complex EM visit Add On G2211 Diagnoses Left knee pain M25.562
== END 2024-08-04 08:10 | disposition home or self-care (01) ==
PROVIDERS: PCP Internal Medicine; Visit Provider Orthopaedic Surgery
DX: M25.562 Pain in left knee (principal); Z96.652 Presence of left artificial knee joint
CPT/HCPCS: 99213

== ENCOUNTER 2024-08-13 09:26 | Outpatient (AMB) | payer MEDICARE, SELFPAY ==
[2024-08-13 09:28] VITALS: BMI 23.8
--- NOTE | 2024-08-13 09:28 | A.OFFVIS_ITS ---
Vital Signs 08/13/24 09:28 Height 5 ft 5 in Weight 143 lb BMI 23.8 Intake Visit Reasons: Right knee pain Intake Note: Chelo is a 79 year old female who presents with complaints of progressively worsening right knee pain. She did undergo left total knee replacement surgery on 03/16/2024. She reports mild intermittent discomfort in her left knee. She describes her right knee pain as sharp in nature. Her right knee pain has gotten worse over the last few months in spite of continued non operative treatments. She has had cortisone injections in the past which gave her fairly good relief. She has also taken Tylenol and ibuprofen which gave her mild relief. She wishes hold off on right total knee replacement surgery for as long as possible. Allergies Sulfa (Sulfonamide Antibiotics) Allergy (Intermediate, Verified 08/13/24 09:30) Rash Medication List - Last Reconciled 08/13/24 by Sonu Kumar MD amoxicillin 2,000 mg (4 x 500 mg) PO ONCE 1 day aspirin (Adult Aspirin Regimen) 81 mg PO DAILY atorvastatin 20 mg PO DAILY lisinopril 10 mg PO DAILY lorazepam 0.5 mg PO DAILY PRN multivitamin 1 tab PO DAILY omeprazole 20 mg PO DAILY@0630 walker Folding front wheeled walker [facility] Medical History Osteoarthritis of left knee White coat syndrome with diagnosis of hypertension Sciatic leg pain Arthritis Anxiety GERD (gastroesophageal reflux disease) Cancer HTN (hypertension) Melanoma Elevated cholesterol Environmental allergies Surgical History Hx of meniscectomy of right knee Hx of hysterectomy Hx of colonoscopy Social History Household Members: None Housing: House Are you a primary disabilities caregiver to a significant other at home: No Do you presently have visiting nurse or other home services: No Patient Tobacco Use Status: Never used Tobacco service: No Current occupational status: employed 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 Physical Exam Vital Signs: BMI result Body Mass Index 23.8 Const Other: Well-nourished well-developed very friendly female awake alert and oriented x3 i n no acute distress Extrem Other: Bilateral lower extremity examination shows good capillary refill, no skin lesions noted, normal sensation light touch Right knee examination shows a minimal effusion, palpable crepitus with range of motion, pain with range of motion, no instability Office Procedures Joint Injection/Aspiration Joint Injection/Aspiration Primary Site: right knee Prep: site was prepped using aseptic technique Injected: 40 mg of, DepoMedrol and 1% plain lidocaine Procedure: The patient tolerated the procedure well Coding - Large joint Procedure code (CPT) selection complete Results Reviewed Results Reviewed: X-rays of the patient's right knee taken previously show joint space narrowing, subchondral sclerosis, no acute bony abnormalities Assessment & Plan Assessment & Plan (1) Arthritis of right knee: Code(s): M17.11 - Unilateral primary osteoarthritis, right knee Category: Medical (2) Right knee pain: Code(s): M25.561 - Pain in right knee Plan Ms. Clark presents with right knee pain due to degenerative joint disease. I had a lengthy discussion with the patient regarding the treatment options. The risks and benefits of a right knee cortisone injection were discussed at length with the patient. The patient wished to proceed with the injection. She tolerated the injection well. She will continue with her home exercise program. I did give her a prescription for Celebrex 2 help with her discomfort. She will contact me prior to her follow-up appointment in 3 months should any questions or concerns arise. Feel free to call me at any time should questions regarding her orthopedic management arise. I spent 22 minutes in reviewing the patient's records and imaging studies, seeing the patient and documenting in the medical record. Orders: Orders AMB Joint Injection/Aspiration Today M17.11 - Unilateral primary osteoarthritis, right knee Medications: New celecoxib (Celebrex) 200 mg PO DAILY PRN 30 caps 3RF pain Coding Level of Care Code Est Pt Level 3 (11820) Complex EM visit Add On G2211 Diagnoses Arthritis of right knee M17.11 Right knee pain M25.561 CPT Codes Coding - Large joint: 44451 - Large joint ([id number])
== END 2024-08-13 09:46 | disposition home or self-care (01) ==
PROVIDERS: PCP Internal Medicine; Visit Provider Orthopaedic Surgery
DX: M17.11 Unilateral primary osteoarthritis, right knee (principal)
CPT/HCPCS: 20610; 99213

== ENCOUNTER → 2024-08-13 09:26 | Outpatient (BNVA) | payer MEDICARE, SELFPAY | PROVIDERS: PCP Internal Medicine; Visit Provider Orthopaedic Surgery | DX: M17.11 Unilateral primary osteoarthritis, right knee (principal); M25.561 Pain in right knee | CPT/HCPCS: 20610; 99212; J1010 ==

== ENCOUNTER 2024-08-26 10:27 | Outpatient (REF) | payer MEDICARE, SELFPAY ==
[2024-08-26 13:46] LABS: Appearance Urine Clear; Color Urine Yellow; Glucose Urine UA Negative (Negative); Leukocyte Esterase Urine Small (1+) (Negative); Nitrite Urine Negative (Negative); PH 5.5 (5.0-9.0); UMIC TRIGGER UA YES; Urine Blood Negative (Negative); Urine Ketones Negative (Negative); Urine Protein Negative (Neg-Trace)
[2024-08-26 14:17] LABS: Bacteria Urine None Seen (None Seen); Hyaline Casts Urine 0-2 /LPF (0-2); RBC Urine 0-2 /HPF (0-2); WBC Urine 0-5 /HPF (0-5)
== END 2024-08-26 10:28 | disposition home or self-care (01) ==
LOC: HO.HMGCLDS 10:27
PROVIDERS: PCP Internal Medicine; Visit Provider Internal Medicine
DX: R30.0 Dysuria (principal)
CPT/HCPCS: 81001; 87086

== ENCOUNTER 2024-09-23 09:23 | Outpatient (REF) | payer MEDICARE, SELFPAY ==
[2024-09-23 13:13] LABS: Appearance Urine Clear; Color Urine Yellow; Glucose Urine UA Negative (Negative); Leukocyte Esterase Urine Trace (Negative); Nitrite Urine Negative (Negative); UMIC TRIGGER UA YES; Urine Blood Negative (Negative); Urine Ketones Negative (Negative); Urine Protein Negative (Neg-Trace)
[2024-09-23 13:20] LABS: Bacteria Urine None Seen (None Seen); Hyaline Casts Urine 0-2 /LPF (0-2); RBC Urine 0-2 /HPF (0-2); WBC Urine 0-5 /HPF (0-5)
== END 2024-09-23 09:24 | disposition home or self-care (01) ==
LOC: HO.HMGCLDS 09:23
PROVIDERS: PCP Internal Medicine; Visit Provider Internal Medicine
DX: R35.0 Frequency of micturition (principal)
CPT/HCPCS: 81001; 87086

== ENCOUNTER 2024-10-05 08:16 | Outpatient (REF) | payer MEDICARE, SELFPAY ==
[2024-10-05 10:11] LABS: MANUAL DIFF FLAG NO
[2024-10-05 10:19] LABS: Basophils Absolute Auto 0.1 X10*3/uL (0.0-0.2); Basophils Percent Auto 1.1 % (0-2); Eosinophils Absolute Auto 0.3 X10*3/uL (0.0-0.4); Eosinophils Percent Auto 4.9 % (0-4); Hematocrit 38.2 % (37.0-47.0); Hemoglobin 12.2 g/dl (12.0-16.0); Imm Gran Abs Auto 0.02 X10*3/uL (0.00-0.03); Imm Gran Pct Auto 0.4 % (0.0-0.4); Lymphocytes Absolute Auto 1.3 X10*3/uL (1.2-4.9); Lymphocytes Percent Auto 22.8 % (20-40); Mean Corpuscular HGB Conc 31.9 g/dl (31.0-35.0); Mean Corpuscular Hemoglobin 29.2 pg (27.0-33.0); Mean Corpuscular Volume 91.4 fL (80.0-98.0); Mean Platelet Volume 10.5 fL (9.4-12.3); Monocytes Absolute Auto 0.7 X10*3/uL (0.1-1.2); Monocytes Percent Auto 12.2 % (2-11); Neutrophils Absolute Auto 3.2 x10*3/uL (2.0-8.3); Neutrophils Percent Auto 58.6 % (45-73); Platelet Count 287 X10*3/uL (160-400); Red Blood Count 4.18 X10*6/uL (4.20-5.50); Red Cell Distribution Width 12.7 % (11.0-16.0); White Blood Count 5.5 X10*3/uL (4.8-10.8)
== END 2024-10-05 08:17 | disposition home or self-care (01) ==
LOC: HO.HMGCLDS 08:16
PROVIDERS: PCP Internal Medicine; Visit Provider Internal Medicine
DX: I10 Essential (primary) hypertension (principal); M17.12 Unilateral primary osteoarthritis, left knee
CPT/HCPCS: 36415; 85025

== ENCOUNTER 2024-11-12 08:12 | Outpatient (AMB) | payer MEDICARE, SELFPAY ==
--- NOTE | 2024-11-12 08:18 | MHC.OFFVIS ---
Intake Visit Reasons: Right knee pain Intake Note: Chelo is a 79 year old female who presents with complaints of progressively worsening right knee pain. The patient did undergo left total knee replacement surgery on 03/16/2024. She reports mild intermittent discomfort in her left knee. She denies any fevers or chills. She notices her left knee discomfort mostly when she is going up and down steep stairs. She has tried Tylenol and anti-inflammatory medicines for her right knee pain. She wishes to hold off on right total knee replacement surgery for as long as possible. She has had cortisone injections in the past which gave her fairly good relief. Allergies Sulfa (Sulfonamide Antibiotics) Allergy (Intermediate, Verified 11/12/24 08:18) Rash Medication List - Last Reconciled 11/12/24 by Sonu Kumar MD amoxicillin 2,000 mg (4 x 500 mg) PO ONCE 1 day aspirin (Adult Aspirin Regimen) 81 mg PO DAILY atorvastatin 20 mg PO DAILY celecoxib (Celebrex) 200 mg PO DAILY PRN lisinopril 10 mg PO DAILY lorazepam 0.5 mg PO DAILY PRN multivitamin 1 tab PO DAILY omeprazole 20 mg PO DAILY@0630 walker Folding front wheeled walker [facility] Medical History Osteoarthritis of left knee White coat syndrome with diagnosis of hypertension Sciatic leg pain Arthritis Anxiety GERD (gastroesophageal reflux disease) Cancer HTN (hypertension) Melanoma Elevated cholesterol Environmental allergies Surgical History Hx of meniscectomy of right knee Hx of hysterectomy Hx of colonoscopy Social History Household Members: None Housing: House Are you a primary director of medicare to a significant other at home: No Do you presently have visiting nurse or other home services: No Patient Tobacco Use Status: Never used Tobacco service: No Current occupational status: employed 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 Physical Exam Const Other: Well-nourished well-developed very friendly female awake alert and oriented x3 in no acute distress Extrem Other: Right knee examination shows a minimal effusion palpable crepitus with range of motion, pain with range of motion, no instability Office Procedures AMB Joint Injection/Aspiration Joint Injection/Aspiration Primary Site: right knee Prep: site was prepped using aseptic technique Injected: 40 mg of, DepoMedrol and 1% plain lidocaine Procedure: The patient tolerated the procedure well Coding - Large joint Procedure code (CPT) selection complete Results Reviewed Results Reviewed: X-rays of the patient's right knee taken previously show joint space narrowing, subchondral sclerosis, no acute bony abnormalities Assessment & Plan Assessment & Plan (1) Arthritis of right knee: Code(s): M17.11 - Unilateral primary osteoarthritis, right knee Category: Medical (2) Right knee pain: Code(s): M25.561 - Pain in right knee Plan Ms. Clark presents with right knee pain due to degenerative joint disease. I had a lengthy discussion with the patient regarding the treatment options. The risks and benefits of a right knee cortisone injection were discussed at length with the patient. The patient wished to proceed. She tolerated the injection well. She will continue with her home exercise program. She will contact me prior to her follow-up appointment in 3 months should any questions or concerns arise. Feel free to call me at any time should questions regarding her orthopedic management arise. I spent 22 minutes in reviewing the patient's records and imaging studies, seeing the patient and documenting in the medical record. Orders: Orders AMB Joint Injection/Aspiration Today M17.11 - Unilateral primary osteoarthritis, right knee XR knee LT 3V Today M25.562 - Pain in left knee Coding Level of Care Code Est Pt Level 3 (58513) Complex EM visit Add On G2211 Diagnoses Arthritis of right knee M17.11 Right knee pain M25.561 CPT Codes Coding - Large joint: 17147 - Large joint ([id number])
== END 2024-11-12 08:41 | disposition home or self-care (01) ==
PROVIDERS: PCP Internal Medicine; Visit Provider Orthopaedic Surgery
DX: M17.11 Unilateral primary osteoarthritis, right knee (principal)
CPT/HCPCS: 20610; 99213

== ENCOUNTER 2024-11-12 11:04 | Outpatient (REF) | payer MEDICARE, SELFPAY | END 2024-11-12 11:05 | disposition home or self-care (01) | LOC: HO.HOSX 11:04 | PROVIDERS: Visit Provider Orthopaedic Surgery | DX: M25.562 Pain in left knee (principal); M25.561 Pain in right knee; M17.11 Unilateral primary osteoarthritis, right knee | CPT/HCPCS: 20610; 73562; 99212; J1010; J2003 ==

== ENCOUNTER 2025-01-18 09:27 | Outpatient (AMB) | payer MEDICARE, SELFPAY ==
--- NOTE | 2025-01-18 09:28 | A.OFFPC_ITS ---
Vital Signs 01/18/25 09:38 Height 5 ft 4 in Weight 146 lb BMI 25.1 BP 164/72 H Blood Pressure Location Rt brachial Pulse 79 Pulse Source Pulse Oximeter Temp 97.0 F Pulse Oximetry (%) 91 L Intake Visit Reasons: sciatica Intake Note: has burning when she urinates started yesterday Allergies Sulfa (Sulfonamide Antibiotics) Allergy (Intermediate, Verified 01/18/25 10:10) Rash Medication List - Last Reconciled 01/18/25 by Kiarra Graham PA-C amoxicillin 2,000 mg (4 x 500 mg) PO ONCE 1 day aspirin (Adult Low Dose Aspirin) 81 mg PO DAILY atorvastatin 20 mg PO DAILY cephalexin 500 mg PO BID 7 days ibuprofen 800 mg PO Q8H lisinopril 10 mg PO DAILY lorazepam 0.5 mg PO DAILY PRN multivitamin 1 tab PO DAILY omeprazole 20 mg PO DAILY@0630 [facility] Medical History (Updated 01/18/25 @ 10:11 by Kiarra Graham PA-C) Overweight (BMI 25.0-29.9) Dysuria History of mammogram (~05/13/24) Varicella zoster Osteoarthritis Uterine fibroid Colitis Mild hypercholesterolemia Sciatica Osteoarthritis of left knee White coat syndrome with diagnosis of hypertension Sciatic leg pain Arthritis Anxiety GERD (gastroesophageal reflux disease) Cancer HTN (hypertension) Melanoma Elevated cholesterol Environmental allergies Surgical History Hx of meniscectomy of right knee Hx of hysterectomy Hx of colonoscopy (~07/18/21) Social History Household Members: None Housing: House Are you a primary inpatient care manager rn to a significant other at home: No Do you presently have visiting nurse or other home services: No Patient Tobacco Use Status: Never used Tobacco service: No Current occupational status: employed 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 BMI result Body Mass Index 25.1 BMI Assessment/Plan discussion: High BMI High, discussed plan: lifestyle, weight reduction, dietary, physical activity and alcohol moderation Tobacco/Smoking Status: Tobacco use Status Patient Tobacco Use Status Never used Tobacco 01/18/25 09:30 Thrive Assessment: Date of Thrive Assessment Date Thrive assessed 03/17/24 01/18/25 09:30 Coding Level of Care Code Est Pt Level 4 (22067) Complex EM visit Add On G2211 Diagnoses GERD (gastroesophageal reflux disease) K21.9 Mild hypercholesterolemia E78.00 HTN (hypertension) I10 Sciatica M54.30 Uterine fibroid D25.9 Melanoma C43.9 Osteoarthritis M19.90 Dysuria R30.0 Anxiety F41.9 Overweight (BMI 25.0-29.9) E66.3 Assessment & Plan Assessment & Plan (1) GERD (gastroesophageal reflux disease): Code(s): K21.9 - Gastro-esophageal reflux disease without esophagitis Category: Medical Plan: Patient to continue omeprazole 20 mg daily. Condition is chronic and stable continue to monitor. (2) Mild hypercholesterolemia: Code(s): E78.00 - Pure hypercholesterolemia, unspecified Category: Medical Plan: Patient currently on atorvastatin 20 mg daily. Patient to return in February and to have her fasting labs prior to then to reassess current treatment regimen to reach LDL Goal <100. (3) HTN (hypertension): Code(s): I10 - Essential (primary) hypertension Category: Medical Plan: Patient currently on lisinopril 10 mg daily. It appears that her blood pressure has been elevated over 160/70s. Will increase lisinopril to 20 mg daily for a BP Goal of 130/80. Patient has returned February for follow-up exam. Condition is chronic and stable continue to monitor. (4) Sciatica: Code(s): M54.30 - Sciatica, unspecified side Category: Medical Plan: Patient is currently utilizing ibuprofen 800. She was prescribed cyclobenzaprine 10 mg every 8 hours and gabapentin 100 mg although no symptomatic relief therefore she discontinued these medications and continues to take ibuprofen 800. Will give refill today. Patient has had imaging in the past. If pain continues will consider reimaging and referral to Orthopedics again. Condition is chronic and stable continue to monitor. (5) Uterine fibroid: Code(s): D25.9 - Leiomyoma of uterus, unspecified Category: Medical Plan: Condition is chronic and stable continue to monitor. (6) Melanoma: Comment: X 2 Code(s): C43.9 - Malignant melanoma of skin, unspecified Category: Medical Plan: Condition chronic and stable continue to monitor. (7) Osteoarthritis: Code(s): M19.90 - Unspecified osteoarthritis, unspecified site Category: Medical Plan: Patient utilizing ibuprofen 800 with symptomatic relief. Will send refill. Condition is chronic and stable continue to monitor. (8) Dysuria: Code(s): R30.0 - Dysuria Category: Medical Plan: Patient with dysuria. No abdominal pain. Abdomen is soft and nontender. There is no reproducible flank pain and patient denies any flank pain. Patient most likely UTI will start on Keflex as patient reports she has been on this antibiotic in the past. Send patient for urine culture and continue to monitor. (9) Anxiety: Code(s): F41.9 - Anxiety disorder, unspecified Category: Medical Plan: Patient to continue p.r.n. lorazepam as needed. Condition is chronic and stable continue to monitor. (10) Overweight (BMI 25.0-29.9): Code(s): E66.3 - Overweight Category: Medical Plan: Patient to improve her diet and exercise regimen. Condition is chronic and stable continue to monitor. Plan Plan Patient was informed and verbally consented to the use of an ambient scribe for clinic note documentation during this visit. 1. Anxiety Use lorazepam as needed, particularly during travel, with attention to in teractions with current medications. 2. Urinary Tract Infection Order urine culture to identify causative organism. Prescribed antibiotic likely cefdinir due to patient's positive historical response and history of sulfa allergy. 3. Elevated Glucose Monitor glucose levels, consider dietary modifications. Reassess in upcoming follow-up. 4. Hyperlipidemia Continue atorvastatin 10 mg daily. Follow-up lipid panel scheduled post- vacation. 5. Hypertension Increase lisinopril from 10 mg to 20 mg daily. Regular blood pressure monitoring advised. 6. Sciatica Continue ibuprofen 800 mg as symptomatic relief. Encourage consistent stretching exercises. Consider re-evaluation with imaging if symptoms persist post- vacation. Orders: Orders UA CC w/rflx Micro + Cult Today R30.0 - Dysuria Comprehensive [place]. Panel Fast Today Z. - Encounter for general adult medical examination without abnormal findings C Reactive Protein Today Z. - Encounter for general adult medical examination without abnormal findings Lipid Panel Today Z. - Encounter for general adult medical examination without abnormal findings Liver Panel Today Z. - Encounter for general adult medical examination without abnormal findings Vitamin B1 Today Z. - Encounter for general adult medical examination without abnormal findings Complete Blood Count Auto Diff Today Z - Encounter for general adult medical examination without abnormal findings Magnesium Today Z - Encounter for general adult medical examination without abnormal findings Vitamin B12 and Folate Today Z. - Encounter for general adult medical examination without abnormal findings Vitamin D 25-OH Total Today Z. - Encounter for general adult medical examination without abnormal findings TSH reflex Free T4 Today Z. - Encounter for general adult medical examination without abnormal findings Hemoglobin A1c Today Z. - Encounter for general adult medical examination without abnormal findings Medications: New cephalexin 500 mg PO BID 7 days 14 caps 0RF lisinopril 20 mg PO DAILY 90 tabs 1RF ibuprofen 800 mg PO Q8H 90 tabs 1RF Patient Instructions: Patient Instructions - Continue taking ibuprofen 800 mg as previously prescribed. - Complete the urine culture at a convenient time and start prescribed antibiotic. - Monitor blood glucose levels and maintain a balanced diet. - due to elevated blood pressure will increase lisinopril to 20 mg daily. - Continue all prescribed medications, ensuring no missed doses. - Return for fasting blood work before the next appointment in February. - Keep scheduled colonoscopy follow-up next year as planned. - Seek immediate medical attention if experiencing fever, new symptoms, or worsening back pain. Scribe Plan - Not visible on output: History of Present Illness The patient is a 79-year-old female presenting with sciatica. She reports a history of sciatica that has been present intermittently over the years. The condition has reoccurred for approximately five weeks. The pain originates in the buttock region and has historically radiated down the leg, although this symptom has decreased in its severity. The patient has been engaging in therapeutic exercises, which have improved the condition. Initial interventions included gabapentin and prednisone, although the patient reports improved relief with ibuprofen 800 mg, which she is currently running low on. Regarding the possible urinary tract infection, the patient mentioned experiencing a burning sensation upon urination, which started recently. There is no reported hematuria, fever, abdominal pain, or recent falls. The patient has a history of hyperlipidemia, hypertension, and anxiety, for which she takes atorvastatin, lisinopril, and lorazepam as needed. She had knee replacement surgery last February and requires amoxicillin as dental prophylaxis due to this. There is a history of melanoma, and a colonoscopy in 2020 revealed a polyp, leading to scheduled surveillance next year. Glucose levels were noted as elevated in past screenings. 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 - Family Status: Engages in family activities, planning a trip with her granddaughter. - Functional Status: Independent, does not require personal care assistance, and is currently working. - Travel: Planning a vacation trip to [place] with family members. Review of Systems - Genitourinary: Reports burning sensation during urination. Physical Exam Appearance: Alert. Oriented X3. No acute distress. Head: Normal external exam. Normocephalic. Atraumatic. Eyes: Pupils are equal, round, and reactive to light. Extraocular movements intact. Conjunctiva and sclera normal. Eyelids normal. Ears: External auditory canal normal. Tympanic membranes normal. Throat: Pharynx normal. Uvula midline. Moist mucous membranes. Neck: Normal inspection. Neck supple. Full range of motion. No adenopathy. Thyroid Normal. No meningeal signs. No neck mass noted. Cardiovascular: Normal heart rate and rhythm. Heart sound normal. No murmurs noted. Pulses normal throughout. Respiratory: No respiratory distress. Painless inspiration. Breath sounds normal. No wheezes/rales/rhonchi noted. Chest nontender. No accessory muscle usage noted or decreased air movement noted. Abdomen: Soft and nontender. Bowel sounds normal in all 4 quadrants. No distention noted. No organomegaly noted. No visible injury noted. Back: No costovertebral angle tenderness. Full range of motion noted. Skin: Skin warm and dry. Normal skin color. Normal skin turgor. No rashes/lesions/lacerations noted. Extremities: No lower extremity edema. Extremities exhibit normal range of motion. Extremities nontender. Neuro: Oriented X 3. No motor deficit. No sensory deficit. Reflexes normal. Results - Labs: Prior CBC in September normal, glucose elevated at recent screening. - Tests and Diagnostics: Normal urine analysis noted during past screenings. Discussion Notes During our discussion, I explained the management plan for sciatica, emphasizing the effectiveness of ibuprofen and the potential for future imaging if symptoms do not improve. We discussed the suspicion of a urinary tract infection and the plan to identify the appropriate antibiotic prior to her vacation. I ensured the patient understood the rationale for each medication and potential side effects, particularly the need to consume food with ibuprofen to prevent gastric discomfort. We addressed regular medication use for hyperlipidemia, hypertension, and anxiety, ensuring that lorazepam usage was safe with current prescriptions. The patient is scheduled for blood work upon return from vacation. Colonoscopy follow-up is planned for next year due to a history of polyps. The patient is instructed to return for immediate evaluation if additional symptoms arise, particularly those suggestive of UTI or exacerbations of sciatica.
[2025-01-18 09:38] VITALS: BP 164/72; PULSE 79; TEMP 36.1; O2SAT 91; BMI 25.1
--- OUTSIDE RECORDS SUMMARY | 2025-01-18 10:15 | XMS_ITS ---
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 Name Role Phone Igor Adkins Primary Care Provider [phone] ALLERGIES Allergen (clinical drug ingredient) Drug/Non Drug Allergy documented on EMR Reaction Allergy Type Onset Date Status sulfamethoxazole / trimethoprim Sulfamethoxazole-T rimethoprim itch, rash Drug Allergy Active REASON FOR VISIT physical, annual visit MEDICATIONS Medication SIG (Take, Route, Frequency, Duration) Notes Start Date End Date Status Probiotic 250 MG 1 capsule Orally Onc e a day Active Omeprazole 20 MG 1 capsule 30 minutes before morning meal Orally Once a day Active LORazepam 0.5 MG 1 tablet as needed Orally Once a day 01/13/2024 Active Multivitamins 1 tablet Orally Once a day Active Celecoxib 200 MG 1 capsule with food as needed Orally Once a day Active Lisinopril 10 MG 1 tablet Orally Once a day Active Atorvastatin Calcium 20 MG 1 tablet Oral ly Once a day Active Aspirin Adult Low Strength 81 MG 1 tablet Orally Once a day Active SOCIAL HISTORY Tobacco Use: Social History Observation Description Date Details (start date - stop date) Never Smoker NA - NA Sex Assigned At : Social History Observation Description Sex Assigned At Female Tobacco Use/Smoking Question Answer Notes Patient is a nonsmoker Additional Findings: Tobacco Non-User Cu rrent non-smoker, currently using no form of tobacco Alcohol Screen Question Answer Notes Did you have a drink contain ing alcohol in the past year? Yes How often did you have a dri nk containing alcohol in the past year? 2 to 4 times a month (2 points) How many drinks did you have on a typical day when you were drinking in the past year? 1 or 2 drinks (0 point) How often did you have 6 or more drinks on one occasion in the past year? Never (0 point) Points 2 Interpretation Negative VITAL SIGNS BMI 28.43 kg/m2 10/13/2024 Blood pressure systolic 162 mm Hg 10/13/20 24 Blood pressure diastolic 52 mm Hg 024 Height 60.5 in 10/13/2024 Weight 148 lbs 10/13/2024 Encounters Encounter Location Date Provider Diagnosis Igor Adkins DO, [address] [id number] 10/13/2024 Igor Adkins Encounter for genera l adult medical examination without abnormal findings Z00.00 ; Essential hypertension I10 ; Hypercholesterolemia E78.00 ; Gastroesophageal reflux disease without esophagitis K21.9 and Primary osteoarthritis of left knee M17.12 ASSESSMENTS Encounter Date Diagnosis Assessment Notes Treatment Notes Treatment Clinical Notes 10/13/2024 Encounter for genera l adult medical examination without abnormal findings (ICD-10 - Z00.00) Doing well. Stays active. 10/13/2024 Essential hypertensi on (ICD-10 - I10) Will follow with Cardiology 10/13/2024 Hypercholesterolemia (ICD-10 - E78.00) Will follow with Cardiology 10/13/2024 Gastroesophageal ref lux disease without esophagitis (ICD-10 - K21.9) 10/13/2024 Primary osteoarthrit is of left knee (ICD-10 - M17.12) PLAN OF TREATMENT Medication Medication Name Sig Start Date Stop Date Notes Probiotic 250 MG 1 capsule Orally Onc e a day Omeprazole 20 MG 1 capsule 30 minutes before morning meal Orally Once a day LORazepam 0.5 MG 1 tablet as needed O rally Once a day 01/13/2024 Multivitamins 1 tablet Orally Once a day Celecoxib 200 MG 1 capsule with food as needed Orally Once a day Lisinopril 10 MG 1 tablet Orally Once a day Atorvastatin Calcium 20 MG 1 tablet Orally Once a day Aspirin Adult Low Strength 81 MG 1 tablet Orally Once a da y Treatment Notes Assessment Notes Encounter for general adult medical examination without abnormal findings Doing well. Stays active. Essential hypertension Will follow with Cardiology Hypercholesterolemia Will follow with Ca rdiology Next Appt Details Follow Up: 6 Months, Reason: follow up visit Progress Notes * Examination Category Sub-Category Detail Notes General Examination GENERAL APPEARANCE: well dev eloped, well nourished, in no acute distress HEAD: normocephalic, atrau matic EYES: sclera non-icteric EARS: NECK/THYROID: neck supple, full ra nge of motion, no cervical lymphadenopathy, thyroid normal, no carotid bruit HEART: regular rate and rhy thm, S1, S2 normal, no murmurs LUNGS: clear to auscultatio n bilaterally ABDOMEN: soft, nontender, non distended, bowel sounds present, normal NEUROLOGIC: nonfocal, motor stre ngth normal upper and lower extremities, sensory exam intact SKIN: warm and dry EXTREMITIES: no edema PERIPHERAL PULSES: 2+ posterior tibial PSYCH: alert, oriented, cog nitive function intact History and Physical Notes * HPI (History of Present Illness) Category Sub-Category Detail Notes Depression Screening PHQ-9 Little inte rest or pleasure in doing things: Not at all Feeling down, depressed, or hopeless: No t at all Trouble falling or staying asleep, or sl eeping too much: Not at all Feeling tired or having little energy: N ot at all Poor appetite or overeating: Not at all Feeling bad about yourself o r that you are a failure, or have let yourself or your family down: Not at all Trouble concentrating on thi ngs, such as reading the newspaper or watching television: Not at all Moving or speaking so slowly that other people could have noticed; or the opposite, being so fidgety or restless that you have been moving around a lot more than usual: Not at all Thoughts that you would be b shruti off or of hurting yourself in some way: Not at all Total Score: 0 Interpretation and Intervention Depression Tanesha white Findings: Negative Follow-Up for Depression: : Review of PH Q-9 found negative result; no follow-up needed Fall Risk Fall History Have you had two or more fal ls in the past year?: No Have you had any falls with injury in th e past year?: No Fall Risk Assessment:: No falls in the p ast year Communication Needs PCMH Communication Needs - PCM He aring Impairment?: No Vision Impairment?: Yes wears glasses Cognitive Impairment?: No SDOH Questions SDOH Questions In the past year have you been worried about losing your housing?: No In the past year have you or any family members you live with been unable to get any of the following when it was really needed? Check all that apply:: None
--- OUTSIDE RECORDS SUMMARY | 2025-01-18 10:15 | XMS_ITS ---
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
== END 2025-01-18 09:55 | disposition home or self-care (01) ==
LOC: HO.HMCSH 09:27
PROVIDERS: PCP Internal Medicine; Visit Provider Physician Assistant Medical
DX: K21.9 Gastro-esophageal reflux disease without esophagitis (principal); E78.00 Pure hypercholesterolemia, unspecified; I10 Essential (primary) hypertension; M54.30 Sciatica, unspecified side; D25.9 Leiomyoma of uterus, unspecified; C43.9 Malignant melanoma of skin, unspecified; M19.90 Unspecified osteoarthritis, unspecified site; R30.0 Dysuria; F41.9 Anxiety disorder, unspecified; E66.3 Overweight

== ENCOUNTER → 2025-01-18 09:27 | Outpatient (BNVA) | payer MEDICARE, SELFPAY | PROVIDERS: PCP Internal Medicine; Visit Provider Physician Assistant Medical | DX: K21.9 Gastro-esophageal reflux disease without esophagitis (principal); E78.00 Pure hypercholesterolemia, unspecified; M54.30 Sciatica, unspecified side; C43.9 Malignant melanoma of skin, unspecified; D25.9 Leiomyoma of uterus, unspecified; F41.9 Anxiety disorder, unspecified; E66.3 Overweight; Z68.25 Body mass index [BMI] 25.0-25.9, adult; Z71.3 Dietary counseling and surveillance | CPT/HCPCS: 99212 ==

== ENCOUNTER 2025-03-11 08:22 | Outpatient (AMB) | payer MEDICARE, SELFPAY ==
[2025-03-11 08:28] VITALS: BMI 25.1
--- NOTE | 2025-03-11 08:28 | A.OFFVIS_ITS ---
Vital Signs 03/11/25 08:28 Height 5 ft 4 in Weight 146 lb BMI 25.1 Intake Visit Reasons: Low back pain radiating to left leg Intake Note: Chelo is a 79 year old female who presents with complaints of progressively worsening low back pain which radiates into the posterior aspect of her left leg. The patient describes her sciatica pain as sharp in nature. The patient states that she did have an MRI of her low back several years ago. No surgery was recommended at that time. Her symptoms have gotten worse over the last few months. She also reports intermittent weakness in her left leg. She did undergo left total knee replacement surgery on 03/16/2024. She reports minimal discomfort in her left knee. She has tried Tylenol and anti-inflammatory medicines which gave her minimal relief. Allergies Sulfa (Sulfonamide Antibiotics) Allergy (Intermediate, Verified 03/11/25 08:29) Rash Medication List - Last Reconciled 03/11/25 by oSnu Kumar MD amoxicillin 2,000 mg (4 x 500 mg) PO ONCE 1 day aspirin (Adult Low Dose Aspirin) 81 mg PO DAILY atorvastatin 20 mg PO DAILY cephalexin 500 mg PO BID 7 days ibuprofen 800 mg PO Q8H lisinopril 10 mg PO DAILY lisinopril 20 mg PO DAILY lorazepam 0.5 mg PO DAILY PRN multivitamin 1 tab PO DAILY omeprazole 20 mg PO DAILY@0630 PFSH Medical History (Updated 03/11/25 @ 08:53 by Sonu Kumar MD) Overweight (BMI 25.0-29.9) Dysuria History of mammogram (~05/13/24) Varicella zoster Osteoarthritis Uterine fibroid Colitis Mild hypercholesterolemia Sciatica Osteoarthritis of left knee White coat syndrome with diagnosis of hypertension Sciatic leg pain Arthritis Anxiety GERD (gastroesophageal reflux disease) Cancer HTN (hypertension) Melanoma Elevated cholesterol Environmental allergies Surgical History Hx of meniscectomy of right knee Hx of hysterectomy Hx of colonoscopy (~07/18/21) Social History Household Members: None Housing: House Are you a primary director medicare sales to a significant other at home: No Do you presently have visiting nurse or other home services: No Patient Tobacco Use Status: Never used Tobacco service: No Current occupational status: employed 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 Clark presents with progressively worsening low back pain which radiates down her left leg possibly due to lumbar stenosis or a disc herniation. Thus, I will send the patient for an MRI of her lumbar spine for further evaluation. I will contact her by phone once the MRI results are available. She will call me prior to that time should her symptoms worsen in any way. Feel free to call me at any time should questions regarding her orthopedic management arise. I spent 21 minutes in reviewing the patient's records and imaging studies, seeing the patient and documenting in the medical record. Orders: Orders MR lumbar spine wo con Today M54.50 - Low back pain, unspecified, M79.605 - Pain in left leg Medications: Refilled amoxicillin 2,000 mg (4 x 500 mg) PO ONCE 4 tabs 3RF take 4 tabs by mouth 1 hour prior to dental ppx 1 day Coding Level of Care Code Est Pt Level 3 (67464) Complex EM visit Add On G2211 Diagnoses Low back pain radiating to left leg M54.50; M79.605
== END 2025-03-11 08:51 | disposition home or self-care (01) ==
LOC: HO.HOS 08:23
PROVIDERS: PCP Internal Medicine; Visit Provider Orthopaedic Surgery
DX: M54.50 Low back pain, unspecified (principal); M79.605 Pain in left leg
CPT/HCPCS: 99213; G2211

== ENCOUNTER → 2025-03-11 08:22 | Outpatient (BNVA) | payer MEDICARE, SELFPAY | PROVIDERS: PCP Internal Medicine; Visit Provider Orthopaedic Surgery | DX: M54.50 Low back pain, unspecified (principal); M79.605 Pain in left leg | CPT/HCPCS: 99212 ==

== ENCOUNTER 2025-03-19 18:07 | Outpatient (REF) | payer MEDICARE, SELFPAY ==
--- NOTE | ~2025-03-19 | MR_ITS ---
EXAMINATION: MR LUMBAR SPINE WITHOUT CONTRAST CLINICAL INFORMATION: Low back pain. COMPARISON: MRI of the institution dated April 06, 2022. TECHNIQUE: MRI of the lumbar spine was obtained using routine sequences without contrast. FINDINGS: Last rib-bearing vertebra labeled T12. No bone marrow STIR signal abnormality. Bone marrow inhomogeneity. Multilevel marginal osteophyte formation and disc desiccation. Modic type II endplate changes in the anterior endplate of L2-3 and L3-4 levels. 1 mm retrolisthesis L2-3. Conus medullaris ends at pedicle of L1 with normal signal. T12-L1: [Sob reticular broad-based disc protrusion. No compression upon neural elements. L1-2: Broad-based disc bulging. No central spinal canal or neuroforamina stenosis. L2-3: Broad-based disc bulging. Facet joint and ligamentum flavum hypertrophy. Reduced AP diameter of the thecal sac and neuroforamina. L3-4: Broad-based disc bulging. Facet joint and ligamentum flavum hypertrophy. Reduced AP diameter of the thecal sac likely abutting the L4 nerve root on the lateral recesses. Bilateral neuroforamina narrowing. L4-5: Broad-based disc bulging. Facet joint and ligamentum flavum hypertrophy. Reduced AP diameter of the thecal sac and central spinal canal stenosis encroaching the neural elements of the thecal sac and the exiting nerve roots. Bilateral neuroforamina stenosis. L5-S1: Broad-based disc bulging. Facet joint and ligamentum flavum hypertrophy. Central spinal canal and bilateral neuroforamina stenosis encroaching likely compressing the neural elements of the thecal sac. Fatty atrophy of the lower lumbar muscles from L4 to sacrum. Slight asymmetric volume loss right psoas muscle. Multifocal hyperintense T2 cystic lesions in the parapelvic left kidney. MR/MR lumbar spine wo con IMPRESSION: Multilevel lumbar spondylosis resulting in central spinal canal and bilateral neuroforamina stenosis at L4-5 and L5-S1 encroaching likely compressing the neural elements of the thecal sac and the exiting nerve roots more pronounced at L4-5 level. Parapelvic cysts, left kidney. Electronically signed by: Micheal Jarvis MD 03/23/2025 08:40 AM EDT
== END 2025-03-19 18:08 | disposition home or self-care (01) ==
LOC: HO.MRI 18:07
PROVIDERS: Visit Provider Orthopaedic Surgery
DX: M54.50 Low back pain, unspecified (principal); M79.605 Pain in left leg
CPT/HCPCS: 72148

== ENCOUNTER → 2025-03-19 18:12 | Outpatient (BNV) | payer MEDICARE, SELFPAY | PROVIDERS: Visit Provider Radiology Diagnostic Radiology | DX: M47.816 Spondylosis without myelopathy or radiculopathy, lumbar region (principal); M99.63 Osseous and subluxation stenosis of intervertebral foramina of lumbar region | CPT/HCPCS: 72148 ==

== ENCOUNTER 2025-04-05 09:24 | Outpatient (AMB) | payer MEDICARE, SELFPAY ==
--- NOTE | 2025-04-05 09:26 | A.SPINEOV_ITS ---
Vital Signs 04/05/25 09:29 Height 5 ft 4 in Weight 145 lb BMI 24.9 Intake Visit Reasons: low back pain Intake Note: Ms. Clark is here today c/o low back pain. Certified Ophthalmic Assistant Required: No Allergies Sulfa (Sulfonamide Antibiotics) Allergy (Intermediate, Verified 04/05/25 09:30) Rash Physical Exam Vital Signs: BMI result Body Mass Index 24.9 Assessment & Plan Assessment & Plan (1) Low back pain radiating to left leg: Code(s): M54.50 - Low back pain, unspecified; M79.605 - Pain in left leg Category: Medical Plan Dear Dr. Kumar, Thank you for referring Chelo to our office today. She is a pleasant 79-year-old female who comes in today with a chief complaint of left buttock/leg pain. She reports this has been ongoing since about December of 2024. She denies any known inciting incident for the pain. When describing the pain she runs her hand from her low back, down the left side of her hip, into the left posterior buttocks, terminating around the mid posterior thigh. She does state that she experienced a very similar pain back in 2022, and was seen by our colleagues at [facility] for this issue. Fortunately, the pain temporarily self resolved back in 2022 without any specific intervention. She reports that her pain worsens with positional changes such as standing up from a seated position. The pain goes away with prolonged ambulation or sitting down. She has recently started experiencing pain when lying flat attempting to sleep. She denies any numbness /tingling / burning sensation associated with the pain. She reports that ibuprofen does help to mitigate some of her pain. She is not on any other prescription medications for pain, but has tried several different giaj-gzl-kxvtotd remedies including pain gels / creams /patches. She has tried physical therapy in the past but states that it was too painful to complete. PMH: Hypertension, hyperlipidemia, left total knee replacement in 2023, Hx of melanoma resection on right eyelid. Social hx: The patient does not smoke, reports no substance use. Medications: see [facility] list, on aspirin. No other anticoagulants, no other pulmonary or cardiac medications. Allergies: sulfa Physical exam: The patient has 5/5 strength in her upper and lower extremities. She ambulates well without an antalgic or spastic gait. She uses no assistive devices to ambulate. She rises from a seated position without significant difficulty, and gets up onto the examination table without assistance. She has no significant sensational deficits on examination. Her reflexes are 2+ intact diffusely. (+) left-sided straight leg raise, (-) Zamarripa's, (-) clonus. Imaging review: MRI of the lumbar spine completed here at [facility] shows moderate central canal stenosis, and a posterior disc bulge at L4-5 causing severe bilateral foraminal stenosis, worse on the left-hand side. Impression: Chelo is a pleasant 79-year-old female who comes in today for evaluation of left posterior buttocks pain. She has experienced this pain before back in 2022, which temporarily self-resolved, and has now returned. She has been attempting to mitigate this issue with vsbe-ycx-sptitua medications, stretching, and exercise, but feels as though her pain is only worsening. I believe that it is most likely that her pain is coming from the compression seen at the L4-5 segment, which appears notably worse on the left-hand side. She is likely experiencing a well localized radicular pain, that has not progressed to the point where it travels all the way down he leg, and instead terminates in her posterior left buttocks / thigh. I believe at this point she would be a good candidate for steroid injection at this segment. I will refer her to our colleagues in Family [facility] to evaluate her for this issue. We may see her again in the future dependent on her response to injections. We may consider minimally invasive lumber decompression of the L4-5 segment. Thank you for allowing us to care for your patient. The total time spent with this visit with this patient was 45 minutes reviewing history, physical exam, MRI imaging review, and implementation of treatment plan or further diagnostic testing Prosper Beaulieu MD,PhD [facility] Orders: Referrals Pain Management Referral M54.50 - Low back pain, unspecified, M79.605 - Pain in left leg Coding Level of Care Code New Pt Level 4 (26649) Diagnoses Low back pain radiating to left leg M54.50; M79.605
[2025-04-05 09:29] VITALS: BMI 24.9
== END 2025-04-05 10:03 | disposition home or self-care (01) ==
LOC: HO.HNS 09:24
PROVIDERS: PCP Internal Medicine; Referring Provider Orthopaedic Surgery; Visit Provider Physician Assistant
DX: M54.50 Low back pain, unspecified (principal); M79.605 Pain in left leg
CPT/HCPCS: 99204

== ENCOUNTER → 2025-04-05 09:24 | Outpatient (BNVA) | payer MEDICARE, SELFPAY | PROVIDERS: PCP Internal Medicine; Referring Provider Orthopaedic Surgery; Visit Provider Physician Assistant | DX: M54.50 Low back pain, unspecified (principal); M79.605 Pain in left leg | CPT/HCPCS: 99202 ==

== ENCOUNTER 2025-04-20 07:38 | Outpatient (AMB) | payer MEDICARE, SELFPAY ==
--- NOTE | 2025-04-20 07:50 | A.OFFVIS_ITS ---
Vital Signs 04/20/25 07:51 Height 5 ft 4 in Weight 145 lb BMI 24.9 Intake Visit Reasons: INJ- RT knee pain, last inj 11/12/24 Intake Note: Chelo is a 79 year old female who presents today with complaints of right knee pain. She was given a right knee steroid injection on 11/12/24. The patient states that she got fairly good relief from the injection initially. Her right knee pain has returned. She has been doing quite a bit of yd work. She also has intermittent low back pain. She has not had an injection given into her low back because her symptoms have improved with yoga exercises. She wishes to hold off on right total knee replacement surgery for as long as possible. Allergies Sulfa (Sulfonamide Antibiotics) Allergy (Intermediate, Verified 04/20/25 07:51) Rash Medication List - Last Reconciled 04/20/25 by Sonu Kumar MD amoxicillin 2,000 mg (4 x 500 mg) PO ONCE 1 day aspirin (Adult Low Dose Aspirin) 81 mg PO DAILY atorvastatin 20 mg PO DAILY cephalexin 500 mg PO BID 7 days ibuprofen 800 mg PO Q8H lisinopril 10 mg PO DAILY lisinopril 20 mg PO DAILY lorazepam 0.5 mg PO DAILY PRN multivitamin 1 tab PO DAILY omeprazole 20 mg PO DAILY@0630 [facility] Medical History (Updated 03/11/25 @ 08:53 by Sonu Kumar MD) Overweight (BMI 25.0-29.9) Dysuria History of mammogram (~05/13/24) Varicella zoster Osteoarthritis Uterine fibroid Colitis Mild hypercholesterolemia Sciatica Osteoarthritis of left knee White coat syndrome with diagnosis of hypertension Sciatic leg pain Arthritis Anxiety GERD (gastroesophageal reflux disease) Cancer HTN (hypertension) Melanoma Elevated cholesterol Environmental allergies Surgical History Hx of meniscectomy of right knee Hx of hysterectomy Hx of colonoscopy (~07/18/21) Social History Household Members: None Housing: House Are you a primary manager urgent care to a significant other at home: No Do you presently have visiting nurse or other home services: No Patient Tobacco Use Status: Never used Tobacco service: No Current occupational status: employed 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 Vital Signs: BMI result Body Mass Index 24.9 Const Other: Well-nourished well-developed very friendly female awake alert and oriented x3 in no acute distress Extrem Other: Right knee examination shows a minimal effusion, palpable crepitus with range of motion, pain with range of motion, no instability Office Procedures AMB Joint Injection/Aspiration Joint Injection/Aspiration Primary Site: right knee Prep: site was prepped using aseptic technique Injected: 40 mg of, DepoMedrol and 1% plain lidocaine Procedure: The patient tolerated the procedure well Coding - Large joint Procedure code (CPT) selection complete Results Reviewed Results Reviewed: X-rays of the patient's right knee show joint space narrowing, subchondral sclerosis, no acute bony abnormalities Assessment & Plan Assessment & Plan (1) Arthritis of right knee: Code(s): M17.11 - Unilateral primary osteoarthritis, right knee Category: Medical Plan Ms. Clark presents with right knee pain due to degenerative joint disease. The risks and benefits of a right knee cortisone injection were discussed at length with the patient. The patient wished to proceed. She tolerated the injection well. She will continue with her home exercise program. She will contact me prior to her follow-up appointment in 3 months should any questions or concerns arise. Feel free to call me at any time should questions regarding her orthopedic management arise. I spent 20 minutes in reviewing the patient's records and imaging studies, seeing the patient and documenting in the medical record. Orders: Orders AMB Joint Injection/Aspiration Today M17.11 - Unilateral primary osteoarthritis, right knee Coding Level of Care Code Est Pt Level 3 (84692) Complex EM visit Add On G2211 Diagnoses Arthritis of right knee M17.11 CPT Codes Coding - Large joint: 04684 - Large joint ([id number])
[2025-04-20 07:51] VITALS: BMI 24.9
== END 2025-04-20 08:05 | disposition home or self-care (01) ==
LOC: HO.HOS 07:39
PROVIDERS: PCP Internal Medicine; Visit Provider Orthopaedic Surgery
DX: M17.11 Unilateral primary osteoarthritis, right knee (principal)
CPT/HCPCS: 20610; 99213

== ENCOUNTER → 2025-04-20 07:38 | Outpatient (BNVA) | payer MEDICARE, SELFPAY | PROVIDERS: PCP Internal Medicine; Visit Provider Orthopaedic Surgery | DX: M17.11 Unilateral primary osteoarthritis, right knee (principal) | CPT/HCPCS: 20610; 99212; J1010; J2003 ==

== ENCOUNTER 2025-04-26 08:09 | Outpatient (REF) | payer MEDICARE, SELFPAY ==
[2025-04-26 10:05] LABS: MANUAL DIFF FLAG NO
[2025-04-26 10:21] LABS: Basophils Percent Auto 0.7 % (0-2); Eosinophils Absolute Auto 0.2 X10*3/uL (0.0-0.4); Eosinophils Percent Auto 3.9 % (0-4); Hematocrit 41.6 % (37.0-47.0); Hemoglobin 13.8 g/dl (12.0-16.0); Imm Gran Abs Auto 0.02 X10*3/uL (0.00-0.03); Imm Gran Pct Auto 0.4 % (0.0-0.4); Lymphocytes Absolute Auto 1.4 X10*3/uL (1.2-4.9); Lymphocytes Percent Auto 24.4 % (20-40); Mean Corpuscular HGB Conc 33.2 g/dl (31.0-35.0); Mean Corpuscular Hemoglobin 29.7 pg (27.0-33.0); Mean Corpuscular Volume 89.5 fL (80.0-98.0); Mean Platelet Volume 10.4 fL (9.4-12.3); Monocytes Absolute Auto 0.6 X10*3/uL (0.1-1.2); Monocytes Percent Auto 10.9 % (2-11); Neutrophils Absolute Auto 3.4 x10*3/uL (2.0-8.3); Neutrophils Percent Auto 59.7 % (45-73); Platelet Count 288 X10*3/uL (160-400); Red Blood Count 4.65 X10*6/uL (4.20-5.50); Red Cell Distribution Width 12.3 % (11.0-16.0); White Blood Count 5.6 X10*3/uL (4.8-10.8)
[2025-04-26 10:24] LABS: Estimated Average Glucose 111 mg/dL; Hemoglobin A1c % 5.5 % (<6.0)
[2025-04-26 10:44] LABS: Alanine Aminotransferase 20 U/L (0-31); Albumin Level 4.2 g/dL (3.5-5.0); Alkaline Phosphatase 115 U/L (39-117); Anion Gap 12 (12-20); Aspartate Amino Transferase 22 U/L (5-31); Bilirubin Direct 0.2 mg/dL (0.0-0.5); Bilirubin Total 0.6 mg/dL (0.0-1.0); Blood Urea Nitrogen 22 mg/dL (9-16); C Reactive Protein < 0.10 mg/dL (< or = 0.50); Calcium 9.4 mg/dL (8.4-10.2); Carbon Dioxide 27 mmol/L (22-29); Chloride 109 mmol/L (96-108); Cholesterol 192 mg/dL (<200); Estimated Glomerular Filt Rate > 60; Glucose Fasting 86 mg/dL (60-99); HDL Cholesterol 76 mg/dL (>40); LDL Cholesterol Calculated 107 mg/dL (<100); Magnesium 2.2 mg/dL (1.6-2.6); Potassium 4.6 mmol/L (3.3-5.1); Sodium 143 mmol/L (135-145); Triglycerides 45 mg/dL (<150)
[2025-04-26 10:55] LABS: TSH reflex Free T4 2.63 uIU/mL (0.32-4.0); Vitamin D 25-OH Total < 3.5 ng/mL (>30)
[2025-04-26 11:10] LABS: Folate 12.6 ng/mL (> or = 4.0); Vitamin B12 423 pg/mL (200-900)
[2025-04-30 16:34] LABS: Vitamin B1 9 nmol/L (8-30)
== END 2025-04-26 08:10 | disposition home or self-care (01) ==
LOC: HO.HMGCLDS 08:09
PROVIDERS: PCP Internal Medicine; Visit Provider Physician Assistant Medical
DX: Z00.00 Encounter for general adult medical examination without abnormal findings (principal); Z13.1 Encounter for screening for diabetes mellitus; Z13.29 Encounter for screening for other suspected endocrine disorder; Z13.0 Encounter for screening for diseases of the blood and blood-forming organs and certain disorders involving the immune mechanism; Z13.220 Encounter for screening for lipoid disorders
CPT/HCPCS: 36415; 80053; 80061; 80076; 82306; 82607; 82746; 83036; 83735; 84425; 84443; 85025; 86140

== ENCOUNTER 2025-04-27 09:55 | Outpatient (AMB) | payer MEDICARE, SELFPAY ==
--- NOTE | 2025-04-27 09:11 | A.OFFPC_ITS ---
Vital Signs 04/27/25 10:15 Height 5 ft 4 in Weight 146 lb 0.2 oz BMI 25.1 BP 160/76 H Blood Pressure Location Rt brachial Position Sitting Pulse 66 Pulse Source Pulse Oximeter Temp 93.7 F L Pulse Oximetry (%) 93 Intake Visit Reasons: Follow up Intake Note: No issues Allergies Sulfa (Sulfonamide Antibiotics) Allergy (Intermediate, Verified 04/27/25 10:39) Rash Medication List - Last Reconciled 04/27/25 by Kiarra Graham PA-C amoxicillin 2,000 mg (4 x 500 mg) PO ONCE 1 day aspirin (Adult Low Dose Aspirin) 81 mg PO DAILY atorvastatin 20 mg PO DAILY cholecalciferol (vitamin D3) 1,250 mcg PO QWEEK 3 months ibuprofen 800 mg PO Q8H lisinopril 20 mg PO DAILY lorazepam 0.5 mg PO DAILY PRN metoprolol succinate ER 12.5 mg PO DAILY multivitamin 1 tab PO DAILY omeprazole 20 mg PO DAILY@0630 HPI Follow up HPI Details The patient is a 79-year-old female presenting for a follow-up on essential hypertension. 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 Elevated readings were noted in past office visits, contrasting with recordings of 127/80 mmHg at urgent care. A recent tick bite led to urgent care evaluation, where a prophylactic course of doxycycline was administered. She self-extracted most of the tick and was provided with additional medication due to frequent outdoor activities. Her medical record indicates vitamin D deficiency due to minimal sun exposure following previous skin cancer, treated with weekly high-dose vitamin D. Laboratory results show mild hyperlipidemia and an A1C of 5.5, suggestive of prediabetes. The sciatica symptoms have improved, and a previous urinary tract infection responded well to antibiotics. The patient continues on atorvastatin for cholesterol management and adheres to lifestyle modifications for glucose control. Social History - [place], which [place] expos ure to ticks and field pests. - Minimal sun exposure due to a history of skin cancer. - Engages in outdoor activities, contrib uting to vitamin D deficiency management and risk of tick bites. [facility] Medical History (Updated 04/27/25 @ 10:45 by Kiarra Graham PA-C) UTI (urinary tract infection) Hyperlipidemia LDL goal <100 Prediabetes Tick bite Vitamin D deficiency Overweight (BMI 25.0-29.9) Dysuria History of mammogram (~05/13/24) Varicella zoster Osteoarthritis Uterine fibroid Colitis Mild hypercholesterolemia Sciatica Osteoarthritis of left knee White coat syndrome with diagnosis of hypertension Sciatic leg pain Arthritis Anxiety GERD (gastroesophageal reflux disease) Cancer HTN (hypertension) Melanoma Elevated cholesterol Environmental allergies Surgical History Hx of meniscectomy of right knee Hx of hysterectomy Hx of colonoscopy (~07/18/21) Social History Household Members: None Housing: House Are you a primary palliative care specialist to a significant other at home: No Do you presently have visiting nurse or other home services: No Patient Tobacco Use Status: Never used Tobacco service: No Current occupational status: employed 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 1. Little interest or pleasure in doing things: not at all 2. Feeling down, depressed, or hopeless: not at all 3. Trouble falling or staying asleep, or sleeping too much: not at all 4. Feeling tired or having little energy: not at all 5. Poor appetite or overeating: not at all 6. Feeling bad about yourself - or that you are a failure or have let yourself or your family down: not at all 7. Trouble concentrating on things, such as reading the newspaper or watching television: not at all 8. Moving or speaking so slowly that other people could have noticed. Or the opposite - being so fidgety or restless that you have been moving around a lot more than usual: not at all 9. Thoughts that you would be better off or of hurting yourself in some way: not at all Total score: 0 Depression Screening Interpretation: Negative Depression Screening Done: Yes 31068 - PHQ-9 Billing: Yes Source: Developed by Drs. Igor Kumari, Annabelle Aj, Khadar Graf and colleagues, with an educational rose marie from [employer]. Thrive Questionnaire Date Thrive assessed: 04/27/25 I am a: Patient What is your living situation today?: I have a steady place to live Within the past 12 months, did the food you bought not last and you didn't have the money to get more?: Never true Within the past 12 months, did you worry whether your food would run out before you got money to buy more?: Never true Do you have trouble paying for medicines?: No Do you have trouble getting transportation to medical appointments?: No Do you have trouble paying your heating and electricity bill?: No Do you have trouble taking care of your child, family member or friend?: No Do you have trouble with day-to-day activities such as bathing, preparing meals, shopping, managing finances, etc.?: No Are you currently unemployed and looking for a job?: No Are you interested in more education?: No THRIVE Score: 0 AUDIT C Alcohol Use Questionnaire (AUDIT-C) 1. How often do you have a drink containing alcohol?: Monthly or less 2. How many drinks containing alcohol do you have on a typical day when you are drinking?: 1 or 2 3. How often do you have six or more drinks on one occasion?: Never Total Score: 1 Score Reviewed/Action Taken: No Review of Systems Const Details: - Cardiovascular: Reports white coat hypertension. Denies chest pain, dizziness. - Musculoskeletal: Reports improvement in sciatica pain. - Genitourinary: Denies current symptoms of urinary tract infection. - Dermatologic: Denies new skin complaints; history of skin cancer noted. Physical exam (Primary Care) Vital Signs: Last Vital Signs Temp 93.7 F L 04/27/25 10:15 Pulse 66 04/27/25 10:15 BP 174/68 H 04/27/25 10:15 Pulse Ox 93 04/27/25 10:15 Care Plan Goal for BP management: <140/90 patient reports at home readings in the 120s/30s over 70s never over. Recently went to urgent care and blood pressure was in the 120s over 80s. Patient has history of white coat syndrome. Patient to continue lisinopril 20 mg daily and to monitor her blood pressure at home. Condition is chronic and stable BMI result Body Mass Index 25.1 BMI Assessment/Plan discussion: High BMI High, discussed plan: lifestyle, weight reduction, dietary, physical activity and alcohol moderation Tobacco/Smoking Status: Tobacco use Status Patient Tobacco Use Status Never used Tobacco 04/27/25 09:12 PHQ-9: PHQ-9 Score PHQ-9: Total score 0 04/27/25 10:19 Depression Screening Interpretation: Negative Thrive Assessment: Date of Thrive Assessment Date Thrive assessed 04/27/25 04/27/25 09:12 Const Other: Appearance: Alert. Oriented X3. No acute distress. Head: Normal external exam. Normocephalic. Atraumatic. Eyes: Pupils are equal, round, and reactive to light. Extraocular movements intact. Conjunctiva and sclera normal. Eyelids normal. Throat: Pharynx normal. Uvula midline. Moist mucous membranes. Neck: Normal inspection. Neck supple. Full range of motion. Cardiovascular: Normal heart rate and rhythm. Heart sound normal. No murmurs noted. Pulses normal throughout. Blood pressure recorded as high today, previously noted as 127/80 at urgent care. Respiratory: No respiratory distress. Painless inspiration. Breath sounds normal. No wheezes/rales/rhonchi noted. Chest nontender. No accessory muscle usage noted or decreased air movement noted. Back: Full range of motion noted. Skin: Skin warm and dry. Normal skin color. Results Reviewed Results Reviewed: - Labs: Hemoglobin A1C 5.5%; LDL cholesterol 107 mg/dL; Vitamin D level previously noted as low. Coding Level of Care Code Est Pt Level 4 (25760) Complex EM visit Add On G2211 Diagnoses HTN (hypertension) I10 Tick bite W57.XXXA Vitamin D deficiency E55.9 Prediabetes R73.03 Hyperlipidemia LDL goal <100 E78.5 Sciatica M54.30 UTI (urinary tract infection) N39.0 Additional Codes PHQ-9 - 36215 - PHQ-9 Billing: Yes ([id number]) Assessment & Plan Assessment & Plan (1) HTN (hypertension): Code(s): I10 - Essential (primary) hypertension Category: Medical Plan: Continue current lisinopril treatment at 20 mg daily and monitor blood pressure at home due to suspected white coat syndrome which was previously diagnosed per patient. Condition is chronic and stable continue to monitor. (2) Tick bite: Code(s): W57.XXXA - Bitten or stung by nonvenomous insect and other nonvenomous arthropods, initial encounter Category: Medical Plan: Doxycycline given prophylactically; additional doxycycline supplied for future use. (3) Vitamin D deficiency: Code(s): E55.9 - Vitamin D deficiency, unspecified Category: Medical Plan: Continue weekly high-dose vitamin D supplementation and reassess levels in three months. Condition is chronic and stable continue to monitor. (4) Prediabetes: Code(s): R73.03 - Prediabetes Category: Medical Plan: Advise dietary changes to lower daily glucose levels, particularly by reducing carbohydrate intake. Condition is chronic and stable continue to monitor. (5) Hyperlipidemia LDL goal <100: Code(s): E78.5 - Hyperlipidemia, unspecified Category: Medical Plan: Maintain atorvastatin usage and encourage continued dietary management to improve cholesterol levels. Condition is chronic and stable will continue to monitor. (6) Sciatica: Code(s): M54.30 - Sciatica, unspecified side Category: Medical Plan: No active management required due to reported improvement. (7) UTI (urinary tract infection): Code(s): N39.0 - Urinary tract infection, site not specified Category: Medical Plan: Previously treated successfully with antibiotics; no further action necessary. Plan Plan Patient was informed and verbally consented to the use of an ambient scribe for clinic note documentation during this visit. 1. Essential Hypertension Continue current lisinopril treatment at 20 mg daily and monitor blood pressure at home due to suspected white coat syndrome. 2. Tick Bite Doxycycline given prophylactically; additional doxycycline supplied for future use. 3. Vitamin D Deficiency Continue weekly high-dose vitamin D supplementation and reassess levels in three months. 4. Prediabetes Advise dietary changes to lower daily glucose levels, particularly by reducing carbohydrate intake. 5. Hyperlipidemia Maintain atorvastatin usage and encourage continued dietary management to improve cholesterol levels. 6. Sciatica No active management required due to reported improvement. 7. Urinary Tract Infection Previously treated successfully with antibiotics; no further action necessary. During today's follow-up, I discussed the management of the patient's essential hypertension, emphasizing the need to maintain current lisinopril dosages due to stable home readings and white coat syndrome. We reviewed the tick bite episode, confirming the sufficiency of doxycycline as a preventive measure, and planning additional medication availability for relevant activities. Vitamin D levels, given previous deficiency, were managed with weekly high-dose supplements, with reevaluation planned post three months of adherence. The prediabetic status was addressed through dietary advice aimed at controlling glucose levels, while hyperlipidemia remains under control with atorvastatin. Sciatica shows improvement, negating further need for intervention. The patient had resolved a prior urinary tract infection. Patient Instructions: - Continue lisinopril 20 mg daily to manage blood pressure. - Use doxycycline as directed if needed for tick bites. - Take vitamin D as instructed, weekly dose. - Follow diet recommendations focusing on reducing sugars and carbs. - Keep monitoring blood pressure at home, and record any significantly high readings. - Schedule next follow-up appointment in six months. - Return earlier for any urgent health concerns.
[2025-04-27 10:15] VITALS: BP 160/76; PULSE 66; TEMP 34.3; O2SAT 93; BMI 25.1
== END 2025-04-27 10:39 | disposition home or self-care (01) ==
LOC: HO.HMCSH 09:55
PROVIDERS: PCP Internal Medicine; Visit Provider Physician Assistant Medical
DX: I10 Essential (primary) hypertension (principal); W57.XXXA Bitten or stung by nonvenomous insect and other nonvenomous arthropods, initial encounter; E55.9 Vitamin D deficiency, unspecified; R73.03 Prediabetes; E78.5 Hyperlipidemia, unspecified; M54.30 Sciatica, unspecified side; N39.0 Urinary tract infection, site not specified

== ENCOUNTER → 2025-04-27 09:55 | Outpatient (BNVA) | payer MEDICARE, SELFPAY | PROVIDERS: PCP Internal Medicine; Visit Provider Physician Assistant Medical | DX: I10 Essential (primary) hypertension (principal); E55.9 Vitamin D deficiency, unspecified; R73.03 Prediabetes; E78.5 Hyperlipidemia, unspecified; M54.30 Sciatica, unspecified side; N39.0 Urinary tract infection, site not specified; T14.8XXA Other injury of unspecified body region, initial encounter; W57.XXXA Bitten or stung by nonvenomous insect and other nonvenomous arthropods, initial encounter; Y93.9 Activity, unspecified; Y92.9 Unspecified place or not applicable; Y99.9 Unspecified external cause status | CPT/HCPCS: 96127; 99212 ==

== ENCOUNTER 2025-07-21 07:41 | Outpatient (AMB) | payer MEDICARE, SELFPAY ==
--- NOTE | 2025-07-21 07:43 | A.OFFVIS_ITS ---
Intake Visit Reasons: INJ- RT knee pain, last inj 04/20/25 Intake Note: Chelo is a 79 year old female who presents today for an injection for her Right knee, last injection 04/20/25. Patient states that this last injection was helpful for about 3 months as it has just started to wear off the last week or so. She is interested in repeating a cortisone injection in the right knee today. Allergies Sulfa (Sulfonamide Antibiotics) Allergy (Intermediate, Verified 07/21/25 07:46) Rash Medication List - Last Reconciled 07/21/25 by Sonu Kumar MD amoxicillin 2,000 mg (4 x 500 mg) PO ONCE 1 day aspirin (Adult Low Dose Aspirin) 81 mg PO DAILY atorvastatin 20 mg PO DAILY cholecalciferol (vitamin D3) 1,250 mcg PO QWEEK 3 months ibuprofen 800 mg PO Q8H lisinopril 20 mg PO DAILY lorazepam 0.5 mg PO DAILY PRN metoprolol succinate ER 12.5 mg PO DAILY multivitamin 1 tab PO DAILY omeprazole 20 mg PO DAILY@0630 [facility] Medical History (Updated 04/27/25 @ 10:45 by Kiarra Graham PA-C) UTI (urinary tract infection) Hyperlipidemia LDL goal <100 Prediabetes Tick bite Vitamin D deficiency Overweight (BMI 25.0-29.9) Dysuria History of mammogram (~05/13/24) Varicella zoster Osteoarthritis Uterine fibroid Colitis Mild hypercholesterolemia Sciatica Osteoarthritis of left knee White coat syndrome with diagnosis of hypertension Sciatic leg pain Arthritis Anxiety GERD (gastroesophageal reflux disease) Cancer HTN (hypertension) Melanoma Elevated cholesterol Environmental allergies Surgical History Hx of meniscectomy of right knee Hx of hysterectomy Hx of colonoscopy (~07/18/21) Social History Household Members: None Housing: House Are you a primary wound care center consultant to a significant other at home: No Do you presently have visiting nurse or other home services: No Patient Tobacco Use Status: Never used Tobacco service: No Current occupational status: employed 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 Office Procedures AMB Joint Injection/Aspiration Joint Injection/Aspiration Primary Site: right knee Prep: site was prepped using aseptic technique Injected: 40 mg of, DepoMedrol and 1% plain lidocaine Procedure: The patient tolerated the procedure well Coding - Large joint Procedure code (CPT) selection complete Results Reviewed Results Reviewed: X-rays of the patient's right knee taken previously show joint space narrowing, subchondral sclerosis, no acute bony abnormalities Assessment & Plan Assessment & Plan (1) Arthritis of right knee: Code(s): M17.11 - Unilateral primary osteoarthritis, right knee Category: Medical Plan Ms. Clark presents with right knee pain due to degenerative joint disease. The risks and benefits of a right knee cortisone injection were discussed at length with the patient. The patient wished to proceed. She tolerated the injection well. She will continue with her home exercise program. She will contact me prior to her follow-up appointment in 3 months should any questions or concerns arise. Feel free to call me at any time should questions regarding her orthopedic management arise. I spent 21 minutes in reviewing the patient's records and imaging studies, seeing the patient and documenting in the medical record. Orders: Orders AMB Joint Injection/Aspiration Today M17.11 - Unilateral primary osteoarthritis, right knee Coding Level of Care Code Est Pt Level 3 (86826) Complex EM visit Add On G2211 Diagnoses Arthritis of right knee M17.11 CPT Codes Coding - Large joint: 87423 - Large joint ([id number])
--- OUTSIDE RECORDS SUMMARY | 2025-07-21 07:44 | XMS_ITS | Clinical Summary ---
Author Organization [facility] Address [address] [address] Phone Care Team Providers Care Rn Labor Delivery Name Role Phone Evangelista Smith MD Primary Care Provid er Allergies Active Allergy Reactions Criticality Noted Date Comments Sulfa (Sulfonamide Antibiotics) Rash Low 03/26 Medications therapeutic multivitamin tablet Take 1 tablet by mouth daily. Active bacillus coagulans-inulin 1 billion-250 cell-mg Cap Take 250 mg by mouth daily. Active omeprazole (PRILOSEC) 20 MG capsule Take 20 mg by mouth daily. 2 Active atorvastatin (LIPITOR) 10 MG tablet Take 2 tablets (20 mg total) by mouth daily. 4 Active Additional Information Patient not taking.Reported on 04/20/2025 aspirin 81 MG EC tablet TAKE 1 TABLET BY MOUTH DAILY 90 tablet 3 4 Active lisinopril (PRINIVIL,ZESTRI L) 10 MG tablet Take 1 tablet (10 mg total) by mouth daily. 90 tablet 3 4 Active Additional Information Patient not taking.Reported on 04/20/2025 metoprolol succinate (TOPROL-XL) 25 MG 24 hr tablet Take 0.5 tablets (12.5 mg total) by mouth daily. 45 tablet 3 4 Active gabapentin (NEURONTIN) 100 MG capsule 5 Active atorvastatin (LIPITOR) 20 MG tablet Take 1 tablet by mouth every morning. 5 Active lisinopril (PRINIVIL,ZESTRI L) 20 MG tablet 5 Active Active Problems Problem Noted Date Diagnosed Date Hypertension 05/05/2021 Encounters Date Type Department Care Team Description 04/20/2025 3:20 PM EDT Office Visit [facility] at [address] [address] Mena Bowers, YOEL Tick bite of right thigh, initial encounter (Primary Dx) from Last 3 Months Immunizations Immunization Administration Dates Next Due COVID-19 (Pre-09/16) Moderna Vaccine, mRNA, PF 01/19/2021,12/22/2020 INFLUENZA, SPLIT VIRUS, TRIV ALENT W/ PRESERVATIVE IM 09/05/2011,09/05/2010 Influenza High-Dose Trivalen t Preservative Free IM 08/23/2021,08/15/2020,09/09/2019,2017,08/23/2017 Influenza Quadrivalent w/ Preservative IM 08/31/2016 Social History Tobacco Use Types Packs/Day Years Used Date Smoking Tobacco: Never Smokeless Tobacco: Never Tobacco Cessation:Counseling Given: Not Answered Alcohol Use Standard Drinks/Week Comments Yes 0 (1 standard drink = 0.6 oz pur e alcohol) Education Answer Date Recorded Are you interested in more education? Not on rebel e 03/22/2023 Are you concerned about learning? Not on file 03/22/2023 No 03/22/2023 No 03/22/2023 Digital Access Answer Date Recorded No 04/20/2023 No 04/20/2023 Reliable internet access at home? Not on file 04/20/2023 Device with a working camera? Not on file Intimate Partner Violence Answer Date R ecorded Are you denied basic needs s uch as food, clothing, or medical care? Deferred 12/09/2022 In the past 12 months have y ou been in a relationship with a person who hurts, threatens, or tries to control you? Deferred 12/09/2022 Are you denied basic needs s uch as food, clothing, or medical care? Deferred 12/09/2022 In the past 12 months have y ou been in a relationship with a person who hurts, threatens, or tries to control you? Deferred 12/09/2022 Comments Unknown Sex and Gender Information Value Date Recorded Sex Assigned at Female 12/09/2022 1:07 PM EST Legal Sex Female 10:37 PM EDT Gender Identity Female 12/09/2022 1:07 PM EST Sexual Orientation Not on file Last Filed Vital Signs Vital Sign Reading Time Taken Comments Blood Pressure 127/82 04/20/2025 3:51 PM EDT Pulse 78 04/20/2025 3:51 PM EDT Temperature 36.9 C (98.5 F) 04/20/2025 3:51 PM EDT Respiratory Rate 17 04/20/2025 3:51 PM EDT Oxygen Saturation 98% 04/20/2025 3:51 PM EDT Inhaled Oxygen Concentration - - Weight 65.8 kg (145 lb) 11/10/2024 2:21 PM EST Height 165.2 cm (5' 5.04 ) 11/10/2024 2:21 PM ES T Body Mass Index 24.1 11/10/2024 2:21 PM EST Plan of Treatment Upcoming Encounters Date Type Department Care Team (Late st Contact Info) Description 08/23/2025 8:40 AM EDT Office Visit [facility] [address] [place] [address] 3rd Floor, [address] [place] [address] Art Luna MD [address] [facility], [address] [place] [id number] [email or web address] Health Maintenance Due Date Last Done Comments DEPRESSION SCREENING 1959 HEPATITIS C SCREENING 1965 ZOSTER VACCINES (1 of 2) 1997 OSTEOPOROSIS SCREENING INITIAL (ONE-TIME) 2012 RSV VACCINE (1 - 1-dose 75+ series) 2022 CREATININE LEVEL 12/09/2023 12/09/2022 POTASSIUM LEVEL 12/09/2023 12/09/2022 COVID-19 VACCINE ( season) 2025 08/27/2024, 08/12/2023, 08/14/2022, Additional history exists BLOOD PRESSURE 10/21/2025 04/20/2025 LIPID PANEL 09/05/2028 09/05/2023 Adult Td,Tdap Booster 11/14/2032 11/14/2022 PNEUMOCOCCAL VACCINES (50+ years) Completed 10/02/2023 SMOKING STATUS SCREENING (Once After 26 Yrs) Completed 04/20/2025 HEPATITIS A VACCINES Aged Out No long er eligible based on patient's age to complete this topic HIB VACCINES Aged Out No longer eligi ble based on patient's age to complete this topic MENINGOCOCCAL VACCINES (ACWY) Aged Out No longer eligible based on patient's age to complete this topic MENINGOCOCCAL VACCINES (B) Aged Out N o longer eligible based on patient's age to complete this topic Medical Devices Not on file Procedures Procedure Name Priority Date/Time Associated Diagnosis Comments LIPID PANEL Routine 09/05/2023 8:38 AM EDT Hyperlipidemia, unspecified hyperlipidemia type BASIC METABOLIC PANEL STAT 12/09/2022 1:40 PM EST from Last 3 Months or Most Recently Relevant to Health Maintenance Results * (ABNORMAL) Lipid panel (09/05/2023 8:38 AM EDT) HDL 81 mg/dL [facility] Comment: Interpretation <40 mg/dL: Low HDL cholesterol (major risk factor for CHD) Greater than or equal to 60 mg/dL: High HDL cholesterol ( negative risk factor for CHD) HDL - cholesterol is affected by a number of factors, e.g. smoking, excerise, hormones, sex and age. CHOLESTEROL 195 0 - 240 mg/dL [facility] TRIGLYCERIDES 80 30 - 160 mg/dL [facility] LDL 98 50 - 129 mg/dL [facility] Comment: LDL levels in terms of risk for coronary heart disease: <100 mg/dL: Optimal 100-129 mg/dL: Near or above optimal 130-159 mg/dL: Borderline high 160-189 mg/dL: High >190 mg/dL: Very High CARDIAC RISK RATIO 2.4(L) 3.3 - 4.4 C [facility] Blood 09/05/2023 8:38 AM EDT 09/05/2023 8:39 AM EDT us Art Luna MD LAB BLOOD ORDERABLES Final Re sult Performing Organization Address City/[facility]/ZIP Co de Phone Number [address] [phone] * (ABNORMAL) Basic metabolic panel (12/09/2022 1:40 PM EST) SODIUM 140 133 - 146 mmol/L [facility] CHLORIDE 105 96 - 108 mmol/L [facility] POTASSIUM 4.0 3.3 - 5.1 mmol/L [facility] CO2 23 21 - 35 mmol/L [facility] BUN 16 6 - 19 mg/dL [facility] CREATININE 0.70 0.5 - 1.5 mg/dL [facility] GLUCOSE 117(H) 70 - 99 mg/dL [facility] CALCIUM 9.6 8.4 - 10.3 mg/dL [facility] EGFR 90 >59 mL/min/1.7 3m2 [facility] Comment:Estimated glomerular filtration rate calculated using the CKD-EPI refit equation. ANION GAP 16 10 - 20 mmol/L [facility] Blood 12/09/2022 1:40 PM EST 12/09/2022 1:54 PM EST Delfino Kim MD LAB BLOOD ORDERABLES Final Re sult Performing Organization Address [facility]/ZIP Co de Phone Number [address] [phone] from Last 3 Months or Most Recently Relevant to Health Maintenance Insurance [employer] [employer] Care Teams Rn Labor Delivery Relationship Specialty Start Date End Date Evangelista Smith MD [address] [place] [phone] PCP - General Internal Medicine 04/20/25 Additional Source Comments The information contained in this document represents components of the legal health record. It is not the complete legal health record.[facility]
== END 2025-07-21 08:04 | disposition home or self-care (01) ==
LOC: HO.HOS 07:42
PROVIDERS: PCP Internal Medicine; Visit Provider Orthopaedic Surgery
DX: M17.11 Unilateral primary osteoarthritis, right knee (principal)
CPT/HCPCS: 20610

== ENCOUNTER → 2025-07-21 07:41 | Outpatient (BNVA) | payer MEDICARE, SELFPAY | PROVIDERS: PCP Internal Medicine; Visit Provider Orthopaedic Surgery | DX: M17.11 Unilateral primary osteoarthritis, right knee (principal) | CPT/HCPCS: 20610; J1010; J2003 ==

== ENCOUNTER 2025-10-26 07:40 | Outpatient (AMB) | payer MEDICARE, SELFPAY ==
--- OUTSIDE RECORDS SUMMARY | 2025-10-26 07:44 | XMS_ITS | Clinical Summary ---
Author Organization [facility] Address [address] [place] [id number] Phone Care Team Providers Care Accounts Receivable Analyst Name Role Phone Evangelista Smith MD Primary Care Provid er Allergies Active Allergy Reactions Criticality Noted Date Comments Sulfa (Sulfonamide Antibiotics) Rash Low 03/26 Medications therapeutic multivitamin tablet Take 1 tablet by mouth daily. Active bacillus coagulans-inulin 1 billion-250 cell-mg Cap Take 250 mg by mouth daily. Active omeprazole (PRILOSEC) 20 MG capsule Take 20 mg by mouth daily. 04/25/2022 Active aspirin 81 MG EC tablet TAKE 1 TABLET BY MOUTH DAILY 90 tablet 3 10/08/2024 Active lisinopril (PRINIVIL,ZESTRIL ) 20 MG tablet 04/14/2025 Acti ve metoprolol succinate (TOPROL-XL) 25 MG 24 hr tablet TAKE 1/2 TABLET(12.5 MG) BY MOUTH DAILY 45 tablet 3 08/03/2025 Active atorvastatin (LIPITOR) 40 MG tablet Take 1 tablet (40 mg total) by mouth every morning. 90 tablet 3 08/23/2025 Active Active Problems Problem Noted Date Diagnosed Date Hypertension 05/05/2021 Encounters Date Type Department Care Team Description 08/23/2025 8:40 AM EDT Office Visit [facility] [address] [place] [address] Art Luna MD [facility] coronary artery calcium score greater than 400 (Primary Dx); Hyperlipidemia, unspecified hyperlipidemia type; Essential hypertension 08/03/2025 Refill [facility] [address], [address] [place] [address] Art Luna MD Medication Refill from Last 3 Months Immunizations Immunization Administration [...] Sign Reading Time Taken Comments Blood Pressure 170/76 08/23/2025 8:41 AM EDT Pulse 73 08/23/2025 8:41 AM EDT Temperature 36.9 C (98.5 F) 04/20/2025 3:51 PM EDT Respiratory Rate 17 04/20/2025 3:51 PM EDT Oxygen Saturation 98% 08/23/2025 8:41 AM EDT Inhaled Oxygen Concentration - - Weight 66.2 kg (146 lb) 08/23/2025 8:41 AM EDT Height 165.2 cm (5' 5.04 ) 08/23/2025 8:41 AM ED T Body Mass Index 24.27 08/23/2025 8:41 AM EDT Plan of Treatment Upcoming Encounters Date Type Department Care Team (Late st Contact Info) Description 02/21/2026 11:20 AM EDT Office Visit [facility] [address] [place] [address] 3rd Floor, [address] [place] [id number] Art Luna MD [address] [facility], [address] [place] [phone] [email or web address] Health Maintenance Due Date Last Done Comments DEPRESSION SCREENING 1959 HEPATITIS C SCREENING 1965 ZOSTER VACCINES (1 of 2) 1997 OSTEOPOROSIS SCREENING INITIAL (ONE-TIME) 2012 RSV VACCINE (1 - 1-dose 75+ series) 2022 CREATININE LEVEL 12/09/2023 12/09/2022 POTASSIUM LEVEL 12/09/2023 12/09/2022 INFLUENZA VACCINE (#1) 2025 , 09/11/2023, 09/05/2022, Additional history exists COVID-19 VACCINE ( season) 2025 08/27/2024, 08/12/2023, 08/14/2022, Additional history exists BLOOD PRESSURE 02/20/2026 08/23/2025 Adult Td,Tdap Booster 11/14/2032 11/14/2022 PNEUMOCOCCAL VACCINES (50+ years) Completed 10/02/2023 SMOKING STATUS SCREENING (Once After 26 Yrs) Completed 08/23/2025 HEPATITIS A VACCINES Aged Out No long [...] Procedure Name Priority Date/Time Associated Diagnosis Comments BASIC METABOLIC PANEL (BMP) STAT 12/09/2022 1:40 PM EST from Last 3 Months or Most Recently Relevant to Health Maintenance Results * (ABNORMAL) Basic metabolic panel (12/09/2022 1:40 PM EST) SODIUM 140 133 - 146 mmol/L [facility] CHLORIDE 105 96 - 108 mmol/L [facility] POTASSIUM 4.0 3.3 - 5.1 mmol/L [facility] CO2 23 21 - 35 mmol/L [facility] BUN 16 6 - 19 mg/dL [facility] CREATININE 0.70 0.5 - 1.5 mg/dL [facility] GLUCOSE 117(H) 70 - 99 mg/dL [facility] CALCIUM 9.6 8.4 - 10.3 mg/dL [facility] EGFR 90 >59 mL/min/1.7 3m2 [facility] Comment:Estimated glomerular filtration rate calculated using the CKD-EPI refit equation. ANION GAP 16 10 - 20 mmol/L [facility] Blood 12/09/2022 1:40 PM EST 12/09/2022 1:54 PM EST us Delfino Kim MD LAB BLOOD BKR ORDERABLES Sun chan Result [address] [phone] from Last 3 Months or Most Recently Relevant to Health Maintenance Insurance [employer] H[employer] REPLACEMENT [place] [address] MEDICARE HMO REPLACEMENT [employer] Care Teams Accounts Receivable Analyst Relationship Specialty Start Date End Date Evangelista Smith MD [address] [place] [phone] PCP - General Internal Medicine 04/20/25 Additional Source Comments The information contained in this document represents components of the legal health record. It is not the complete legal health record.[facility]
--- NOTE | 2025-10-26 07:46 | A.OFFVIS_ITS ---
Intake Visit Reasons: Right knee pain Intake Note: Chelo is a 80 year old female who presents with complaints of right knee pain. She describes her pain as sharp in nature. She has had cortisone injections in the past which gave her temporary relief. She has also had viscosupplementation injections which gave her very good relief. She has undergone left total knee replacement surgery in the past. She reports mild intermittent discomfort in her left knee. She wishes to hold off on right total knee replacement surgery if at all possible. Allergies Sulfa (Sulfonamide Antibiotics) Allergy (Intermediate, Verified 07/21/25 07:46) Rash Medication List - Last Reconciled 10/26/25 by Sonu Kumar MD amoxicillin 2,000 mg (4 x 500 mg) PO ONCE 1 day aspirin (Adult Low Dose Aspirin) 81 mg PO DAILY atorvastatin 20 mg PO DAILY cholecalciferol (vitamin D3) 1,250 mcg PO QWEEK 3 months ibuprofen 800 mg PO Q8H lisinopril 20 mg PO DAILY lorazepam 0.5 mg PO DAILY PRN metoprolol succinate ER 12.5 mg PO DAILY multivitamin 1 tab PO DAILY omeprazole 20 mg PO DAILY@0630 [facility] Medical History (Updated 04/27/25 @ 10:45 by Kiarra Graham PA-C) UTI (urinary tract infection) Hyperlipidemia LDL goal <100 Prediabetes Tick bite Vitamin D deficiency Overweight (BMI 25.0-29.9) Dysuria History of mammogram (~05/13/24) Varicella zoster Osteoarthritis Uterine fibroid Colitis Mild hypercholesterolemia Sciatica Osteoarthritis of left knee White coat syndrome with diagnosis of hypertension Sciatic leg pain Arthritis Anxiety GERD (gastroesophageal reflux disease) Cancer HTN (hypertension) Melanoma Elevated cholesterol Environmental allergies Surgical History Hx of meniscectomy of right knee Hx of hysterectomy Hx of colonoscopy (~07/18/21) Social History Household Members: None Housing: House Are you a primary care advocate to a significant other at home: No Do you presently have visiting nurse or other home services: No Patient Tobacco Use Status: Never used Tobacco service: No Current occupational status: employed 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 Physical Exam Const Other: Well-nourished well-developed very friendly female awake alert and oriented x3 in no acute distress Extrem Other: Right knee examination shows a minimal effusion, palpable crepitus with range of motion, pain with range of motion, no instability Office Procedures AMB Joint Injection/Aspiration Joint Injection/Aspiration Primary Site: Right Knee Prep: site was prepped using aseptic technique Injected: 40 mg of, DepoMedrol, with 3 mL of and 1% plain Lidocaine Procedure: The patient tolerated the procedure well Coding - Large joint Procedure code (CPT) selection complete Results Reviewed Results Reviewed: X-rays of the patient's right knee taken previously show joint space narrowing, subchondral sclerosis, no acute bony abnormalities Assessment & Plan Assessment & Plan (1) Arthritis of right knee: Code(s): M17.11 - Unilateral primary osteoarthritis, right knee Category: Medical (2) Right knee pain: Code(s): M25.561 - Pain in right knee Plan Ms. Clark presents with right knee pain due to osteoarthritis. The risks and benefits of a right knee cortisone injection were discussed at length with the patient. The patient wished to proceed. She tolerated the injection well. She will continue with her activity modifications. If the patient does not get lasting relief from the cortisone injection I will see if her insurance company will cover another viscosupplementation injection, such as Durolane. She will contact me prior to her follow-up appointment in 3 months should any questions or concerns arise. Feel free to call me at any time should questions regarding her orthopedic management arise. I spent 20 minutes in reviewing the patient's records and imaging studies, seeing the patient and documenting in the medical record. Orders: Orders AMB Joint Injection/Aspiration Today M17.11 - Unilateral primary osteoarthritis, right knee Coding Level of Care Code Est Pt Level 3 (99596) Complex visit Add On G2211 Diagnoses Arthritis of right knee M17.11 Right knee pain M25.561 CPT Codes Coding - Large joint: 94734 - Large joint ([id number])
== END 2025-10-26 08:06 | disposition home or self-care (01) ==
LOC: HO.HOS 07:40
PROVIDERS: PCP Internal Medicine; Visit Provider Orthopaedic Surgery
DX: M17.11 Unilateral primary osteoarthritis, right knee (principal); M25.561 Pain in right knee
CPT/HCPCS: 20610; 99213

== ENCOUNTER → 2025-10-26 07:40 | Outpatient (BNVA) | payer MEDICARE, SELFPAY | PROVIDERS: PCP Internal Medicine; Visit Provider Orthopaedic Surgery | DX: M17.11 Unilateral primary osteoarthritis, right knee (principal); M25.561 Pain in right knee; Z00.00 Encounter for general adult medical examination without abnormal findings; R73.03 Prediabetes; I10 Essential (primary) hypertension; E78.5 Hyperlipidemia, unspecified; E55.9 Vitamin D deficiency, unspecified; F41.9 Anxiety disorder, unspecified; Z13.31 Encounter for screening for depression; Z13.39 Encounter for screening examination for other mental health and behavioral disorders; Z28.89 Immunization not carried out for other reason | CPT/HCPCS: 20610; 96127; 99212; J1010; J2003 ==

== ENCOUNTER 2025-10-26 09:06 | Outpatient (AMB) | payer MEDICARE, SELFPAY ==
--- NOTE | 2025-10-26 09:06 | A.OFFPC_ITS ---
Vital Signs 10/26/25 09:19 Height 5 ft 4 in Weight 149 lb 0.2 oz BMI 25.6 BP 191/76 H Blood Pressure Location Rt brachial Pulse 76 Pulse Source Pulse Oximeter Temp 97.2 F Pulse Oximetry (%) 98 Intake Visit Reasons: 6 month f/u Intake Note: no issues Allergies Sulfa (Sulfonamide Antibiotics) Allergy (Intermediate, Verified 10/26/25 09:28) Rash Medication List - Last Reconciled 10/26/25 by Kiarra Graham PA-C amoxicillin 2,000 mg (4 x 500 mg) PO ONCE 1 day aspirin (Adult Low Dose Aspirin) 81 mg PO DAILY atorvastatin 40 mg PO DAILY lisinopril 20 mg PO DAILY lorazepam 0.5 mg PO DAILY PRN metoprolol succinate ER 12.5 mg PO DAILY multivitamin 1 tab PO DAILY omeprazole 20 mg PO DAILY@0630 HPI HPI Comments History of Present Illness Details History of Present Illness The patient is a 80 year old individual presenting for management of chronic conditions and review of laboratory results. The patient has a history of prediabetes, with a hemoglobin A1c that has been fluctuating. A prior A1c was 5.6%, which then improved to 5.5% in April, and has now increased to 5.8%. The patient acknowledges dietary indiscretions may have contributed to the recent increase. The patient is not on any medication for diabetes. Regarding hyperlipidemia, the patient is on atorvastatin, which was recently increased to 40 mg by a mems integration engineer, Dr. Adkins, in July. The LDL was 107 mg/dL on recent labs. For hypertension, the patient is on lisinopril 20 mg and metoprolol extended- release 12.5 mg. The patient reports feeling tense during doctor visits and has not been monitoring blood pressure at home, despite being advised to do so. Vitamin D deficiency was noted on prior blood work, for which the patient completed a three-month course of once-weekly supplements but did not continue a fter finishing the prescription. The patient takes a daily multivitamin containing calcium. The patient's medication list also includes aspirin, omeprazole, and amoxicillin 2 g for dental procedure prophylaxis. The patient uses lorazepam very infrequently and noted that the current supply appears powdery and old. Due to a history of urinary tract infections, the patient requested an antibiotic pr escription to have on hand for an upcoming trip to the [facility]. Social History - Diet: The patient acknowledges dietary choices impacting A1c levels, including potential overconsumption of foods that convert to sugar such as pasta, bread, and crackers. - Substance Use: Denies drinking soda. - Travel: The patient plans to travel to the [facility] in October. [facility] Medical History (Updated 10/26/25 @ 09:53 by Kiarra Graham PA-C) Healthcare maintenance UTI (urinary tract infection) Hyperlipidemia LDL goal <100 Prediabetes Tick bite Vitamin D deficiency Overweight (BMI 25.0-29.9) Dysuria History of mammogram (~05/13/24) Varicella zoster Osteoarthritis Uterine fibroid Colitis Mild hypercholesterolemia Sciatica Osteoarthritis of left knee White coat syndrome with diagnosis of hypertension Sciatic leg pain Arthritis Anxiety GERD (gastroesophageal reflux disease) Cancer HTN (hypertension) Melanoma Elevated cholesterol Environmental allergies Surgical History Hx of meniscectomy of right knee Hx of hysterectomy Hx of colonoscopy (~07/18/21) Social History Household Members: None Housing: House Are you a primary resident care manager rn to a significant other at home: No Do you presently have visiting nurse or other home services: No Patient Tobacco Use Status: Never used Tobacco service: No Current occupational status: employed 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 1. Little interest or pleasure in doing things: not at all 2. Feeling down, depressed, or hopeless: not at all 3. Trouble falling or staying asleep, or sleeping too much: not at all 4. Feeling tired or having little energy: not at all 5. Poor appetite or overeating: not at all 6. Feeling bad about yourself - or that you are a failure or have let yourself or your family down: not at all 7. Trouble concentrating on things, such as reading the newspaper or watching television: not at all 8. Moving or speaking so slowly that other people could have noticed. Or the opposite - being so fidgety or restless that you have been moving around a lot more than usual: not at all 9. Thoughts that you would be better off or of hurting yourself in some way: not at all Total score: 0 Depression Screening Interpretation: Negative Depression Screening Done: Yes 21745 - PHQ-9 Billing: Yes Source: Developed by Drs. Igor Kumari, Annabelle Aj, Khadar Graf and colleagues, with an educational rose marie from [employer]. Thrive Questionnaire Date Thrive assessed: 04/27/25 I am a: Patient What is your living situation today?: I have a steady place to live Within the past 12 months, did the food you bought not last and you didn't have the money to get more?: Never true Within the past 12 months, did you worry whether your food would run out before you got money to buy more?: Never true Do you have trouble paying for medicines?: No Do you have trouble getting transportation to medical appointments?: No Do you have trouble paying your heating and electricity bill?: No Do you have trouble taking care of your child, family member or friend?: No Do you have trouble with day-to-day activities such as bathing, preparing meals, shopping, managing finances, etc.?: No Are you currently unemployed and looking for a job?: No Are you interested in more education?: No THRIVE Score: 0 AUDIT C Alcohol Use Questionnaire (AUDIT-C) 1. How often do you have a drink containing alcohol?: Monthly or less 2. How many drinks containing alcohol do you have on a typical day when you are drinking?: 1 or 2 3. How often do you have six or more drinks on one occasion?: Never Total Score: 1 Score Reviewed/Action Taken: No EL-7 AMB Questionnaire EL-7 Date EL - 7 assessed: 10/26/25 Feeling nervous, anxious, or on edge: 0 = Not at all Not being able to stop or control worryin = Not at all Worrying too much about different things: 0 = Not at all Trouble relaxin = Not at all Being so restless that it is hard to sit still: 0 = Not at all Becoming easily annoyed or irritable: 0 = Not at all Feeling afraid as if something awful might happen: 0 = Not at all Total EL-7 score (0-4 normal; 5-9 mild; 10-14 moderate; 15-21 severe): 0 Source: Developed by Drs. Igor Kumari, Annabelle Aj, Khadar Graf and colleagues, with an educational rose marie from [employer]. EL-7 Assessment Billing EL-7 Assessment Tool: EL-7 Assessment 12591 Review of Systems Narrative Review of Systems - Genitourinary: Reports history of recurrent urinary tract infections, particularly when traveling. - Psychiatric: Reports feeling tense during medical appointments. - All other systems were reviewed and are negative. Const All systems reviewed & are unremarkable except as noted in HPI and below Physical exam (Primary Care) Vital Signs: Last Vital Signs Temp 97.2 F 10/26/25 09:19 Pulse 76 10/26/25 09:19 BP 191/76 H 10/26/25 09:19 Pulse Ox 98 10/26/25 09:19 Care Plan Goal for BP management: <140/90 lisinopril 20 mg will be increased to 40 mg daily and patient will return in 1 month with blood pressure diary BMI result Body Mass Index 25.6 BMI Assessment/Plan discussion: High BMI High, discussed plan: lifestyle, weight reduction, dietary, physical activity, alcohol moderation and other Tobacco/Smoking Status: Tobacco use Status Patient Tobacco Use Status Never used Tobacco 10/26/25 09:07 PHQ-9: PHQ-9 Score PHQ-9: Total score 0 10/26/25 09:16 Depression Screening Interpretation: Negative Thrive Assessment: Date of Thrive Assessment Date Thrive assessed 04/27/25 10/26/25 09:07 Narrative Physical Exam Appearance: Alert. Oriented X3. No acute distress. Head: Normal external exam. Normocephalic. Atraumatic. Eyes: Pupils are equal, round, and reactive to light. Extraocular movements intact. Conjunctiva and sclera normal. Eyelids normal. Throat: Pharynx normal. Uvula midline. Moist mucous membranes. Neck: Normal inspection. Neck supple. Full range of motion. Cardiovascular: Normal heart rate and rhythm. Heart sound normal. No murmurs noted. Pulses normal throughout. Respiratory: No respiratory distress. Painless inspiration. Breath sounds normal. No wheezes/rales/rhonchi noted. Chest nontender. No accessory muscle usage noted or decreased air movement noted. Back: Full range of motion noted. Skin: Skin warm and dry. Normal skin color. Extremities: Extremities exhibit normal range of motion. Office Procedures Flu Questionnaire Does the patient have a severe egg allergy?: No Does the patient have severe life threatening allergies?: No Does the patient have a fever or illness today?: No Has the patient ever had Guillain-[place] Syndrome?: No Has the patient ever had any past reaction to a flu shot?: No Immunizations Fluarix [id number] (PF) 45 mcg (15 mcg x 3)/0.5 mL IM syringe Performing Provider: Kiarra Graham PA-C [place] [facility] Documented (not given) by: Cheryl Andres on 10/26/25 09:18 Reason Not Given: Received Previously Results Reviewed Results Reviewed: Results - Fpakc-zb-Ixte Testing: - Hemoglobin A1c: 5.8%. - Labs from April: - CBC: White blood cell count, red blood cell count, and platelets were normal. - CMP: Sodium, potassium, and chloride (108) were normal. - BUN was slightly elevated at 22, creatinine was 0.85, and GFR was >60. - Fasting glucose was 86. - Liver enzymes and magnesium were normal. - C-reactive protein was normal. - Lipid Panel: Total cholesterol 192, LDL 107, HDL 76, and triglycerides were normal. - Vitamin D was very low. Coding Level of Care Code Est Pt Level 4 (43883) Complex visit Add On G2211 Diagnoses Prediabetes R73.03 HTN (hypertension) I10 Hyperlipidemia LDL goal <100 E78.5 Vitamin D deficiency E55.9 Healthcare maintenance Z00.00 Anxiety F41.9 Additional Codes PHQ-9 - 36962 - PHQ-9 Billing: Yes ([id number]) EL-7 Assessment Billing - EL-7 Assessment Tool: EL-7 Assessment 83979 ([id number]) Assessment & Plan Assessment & Plan (1) Prediabetes: Code(s): R73.03 - Prediabetes Category: Medical Plan: The patient's hemoglobin A1c has increased to 5.8% from 5.5% in April, indicating worsening glycemic control and placing the patient in the prediabetic range. The plan includes dietary counseling, with a recommendation to start a new diet after [place], focusing on avoiding foods like pasta, bread, and sugar to prevent progression to diabetes. Educational materials regarding diet and A1c improvement were provided. Blood work will be repeated at the annual physical in April. (2) HTN (hypertension): Code(s): I10 - Essential (primary) hypertension Category: Medical Plan: The patient's blood pressure was significantly elevated in the office at 180/79 mmHg. The current regimen is lisinopril 20 mg and metoprolol 12.5 mg ER. The lisinopril dose will be increased to 40 mg once daily. The patient will follow up in one month for a blood pressure recheck. (3) Hyperlipidemia LDL goal <100: Code(s): E78.5 - Hyperlipidemia, unspecified Category: Medical Plan: The patient's LDL cholesterol is 107 mg/dL, which is above the goal of less than 100 mg/dL. The patient's mems integration engineer recently increased the atorvastatin dose to 40 mg, which will be continued. Educational materials on natural ways to lower cholesterol were provided. (4) Vitamin D deficiency: Code(s): E55.9 - Vitamin D deficiency, unspecified Category: Medical Plan: The patient has a history of very low vitamin D and has not been consistently taking supplements. To address this and reduce the risk of osteoporosis, the once-weekly vitamin D supplement was refilled. The patient was instructed to continue taking it, and the level will be rechecked at the annual physical in April. (5) Healthcare maintenance: Code(s): Z00.00 - Encounter for general adult medical examination without abnormal findings Category: Medical Plan: The patient is due for an annual physical exam in April. The patient was instructed to complete fasting blood work one to two weeks prior to the appointment so results can be discussed during a single visit. An appointment will be scheduled for mid-April. (6) Anxiety: Code(s): F41.9 - Anxiety disorder, unspecified Category: Medical Plan: A refill of lorazepam 30 tablets was prescribed for infrequent use, as the patient's current supply is old. In preparation for upcoming travel, a pres cription for Macrobid was sent to the pharmacy for the patient to have on hand for potential urinary tract infection. Plan Plan Patient was informed and verbally consented to the use of an ambient scribe for clinic note documentation during this visit. 1. Prediabetes The patient's hemoglobin A1c has increased to 5.8% from 5.5% in April, indicating worsening glycemic control and placing the patient in the prediabetic range. The plan includes dietary counseling, with a recommendation to start a new diet after , focusing on avoiding foods like pasta, bread, and sugar to prevent progression to diabetes. Educational materials regarding diet and A1c improvement were provided. Blood work will be repeated at the annual physical in April. 2. Essential Hypertension The patient's blood pressure was significantly elevated in the office at 180/79 mmHg. The current regimen is lisinopril 20 mg and metoprolol 12.5 mg ER. The lisinopril dose will be increased to 40 mg once daily. The patient will follow up in one month for a blood pressure recheck. 3. Hyperlipidemia The patient's LDL cholesterol is 107 mg/dL, which is above the goal of less than 100 mg/dL. The patient's mems integration engineer recently increased the atorvastatin dose to 40 mg, which will be continued. Educational materials on natural ways to lower cholesterol were provided. 4. Vitamin D Deficienc The patient has a history of very low vitamin D and has not been consistently taking supplements. To address this and reduce the risk of osteoporosis, the once-weekly vitamin D supplement was refilled. The patient was instructed to continue taking it, and the level will be rechecked at the annual physical in April 5. Medication Management A refill of lorazepam 30 tablets was prescribed for infrequent use, as the patient's current supply is old. In preparation for upcoming travel, a prescription for Macrobid was sent to the pharmacy for the patient to have on hand for potential urinary tract infection 6. Health Maintenance The patient is due for an annual physical exam in April. The patient was instructed to complete fasting blood work one to two weeks prior to the appo intment so results can be discussed during a single visit. An appointment will be scheduled for mid-April. Discussion Notes I discussed the lab results with the patient, highlighting the increase in hemoglobin A1c to 5.8%, and explained that this signifies prediabetes. I counseled the patient on the importance of dietary changes to prevent the progression to diabetes and provided educational handouts on diet for prediabetes and hyperlipidemia. We addressed the elevated blood pressure reading, and the patient agreed to an increase in the lisinopril dose to 40 mg daily with a follow-up in one month for a recheck. I also refilled the patient's vitamin D and stressed the importance of continuous use for bone health. I provided a new prescription for lorazepam and a standby prescription for Pramod crobobd for potential UTI during travel. We planned for the patient to return for an annual physical in April and arranged for the fasting blood work to be done prior to that visit. Orders: Orders Influenza [id number] Immunization Today Z23 - Encounter for immunization Medications: New lorazepam 0.5 mg PO DAILY PRN 30 tabs 0RF Anxiety nitrofurantoin monohyd/m-cryst 100 mg (Macrobid) must administer with a meal/food 100 mg PO Q12H 14 caps 0RF 7 days Changed From atorvastatin 20 mg PO DAILY 90 tabs 3RF To atorvastatin 40 mg PO DAILY From lisinopril 20 mg PO DAILY 90 tabs 3RF To lisinopril 40 mg PO DAILY 90 tabs 3RF Refilled cholecalciferol (vitamin D3) 1,250 mcg PO QWEEK 13 caps 3RF vit d deficiency 3 months E55.9 - Vitamin D deficiency, unspecified Patient Instructions: Patient Instructions - Your blood sugar is in the prediabetic range. - It is important to improve your diet by limiting foods like pasta, bread, crackers, and beer to help lower your blood sugar. - We are increasing your blood pressure medication, lisinopril, to 40 mg once a day. - Please make an appointment to come back in one month to recheck your blood pressure. - Continue taking your once-weekly vitamin D supplement, which I have refilled for you. - I have sent a refill for lorazepam to your pharmacy. - I have also sent a prescription for an antibiotic, Macrobid, for you to take with you on your trip in case you develop a urinary tract infection. - We will schedule your annual physical for April. - Please get your fasting blood work done one to two weeks before your annual physical appointment.
[2025-10-26 09:19] VITALS: BP 191/76; PULSE 76; TEMP 36.2; O2SAT 98; BMI 25.6
== END 2025-10-26 09:56 | disposition home or self-care (01) ==
LOC: HO.HMCSH 09:06
PROVIDERS: PCP Physician Assistant Medical; Visit Provider Physician Assistant Medical
DX: R73.03 Prediabetes (principal); I10 Essential (primary) hypertension; E78.5 Hyperlipidemia, unspecified; E55.9 Vitamin D deficiency, unspecified; F41.9 Anxiety disorder, unspecified